=== PATIENT | female | born 1960 | race Caucasian/White ===

== ENCOUNTER 2019-12-16 23:50 | Emergency (ER) | payer MEDICARE ==
[~2019-12-16] VITALS: Ht 170.2 cm; Wt 108.0 kg
[~2019-12-16 23:50] MED LIST: ALBU18HF IH; ALLO300T PO; ALPR2TAB2 PO; AMLO-169 PO; AMLO5TAB4 PO; ATOR20TA PO; AZIT250T PO; BUPR300T4 PO; BUPR300T92 PO; CARV25TA PO; CARV6.252 PO; CHOL100015 PO; CIPR500T86 PO; CLON0.2T PO; CLOP75TA PO; DASA100T PO; DEXL60CA2 PO; DULO60CA7 PO; FENO134C PO; FENO160T PO; FURO-80 PO; FURO-81 PO; GABA300C PO; HYDR500C3 PO; LANC-426 MC; LEVO1CAP2 PO; LEVO200T5 PO; LEVO750T5 PO; LINA290C PO; LORC10TA PO; LOSA50TA14 PO; LOSA50TA2 PO; METF500T17 PO; METO-238 PO; NEBI20TA2 PO; NITR100C58 PO; ONDA8TAB12 PO; OXCA150T19 PO; PANT40TA3 PO; PARO40TA3 PO; POTA10TA17 PO; PRED20TA PO; PROM25TA10 PO; QUET150T2 PO; RANO500T2 PO; ROSU10TA2 PO; TIOT18CA IH; TIZA4TAB2 PO; TRAM50TA PO; [UNRECOGNIZED DRUG - CODE] PO; [UNRECOGNIZED DRUG - CODE] PO; [UNRECOGNIZED DRUG - CODE] PO
[2019-12-17] MEDS ORDERED: MORPHINE SULFATE IM STA (01:18)
--- NOTE | 2019-12-17 01:24 | ER.PDOC ---
General Chief Complaint: Requesting Medical Care Stated Complaint: R KIDNEY PAIN Time seen by MD: 01:22 Source: patient Exam Limitations: no limitations History of Present Illness Initial Comments Right flank pain for 1 week Timing/Duration: 1 week Severity/Quality: moderate, sharpness Radiation: RLQ Associated Symptoms: denies symptoms Exacerbated by: nothing Relieved By: nothing Allergies: Coded Allergies: Penicillins (Verified Allergy, Severe, unknown, 03/24/16) "CONVULSIONS" aspirin (Verified Allergy, Severe, 03/24/16) "CONVULSIONS" cefamandole nafate (Verified Allergy, Severe, 03/24/16) iodine (Verified Allergy, Severe, Shortness of Breath, 03/24/16) quetiapine (Verified Allergy, Severe, "I GO CRAZY, OUT OF MY HEAD", 03/24/16) Cephalexin Monohydrate (Verified Allergy, Intermediate, Hives, 03/24/16) egg (Verified Allergy, Intermediate, Headache, 03/24/16) latex (Verified Allergy, Intermediate, HIVES, 03/24/16) hydrocodone bitartrate (Verified Allergy, Unknown, 03/24/16) phenazopyridine HCl (Verified Allergy, Unknown, 03/24/16) codeine (Verified Adverse Reaction, Mild, 03/24/16) "I GO CRAZY" fentanyl (Verified Adverse Reaction, Mild, 03/24/16) "I GO CRAZY" Uncoded Allergies: SULFA (Allergy, Unknown, 07/26/13) Home Meds Active Scripts Levofloxacin (LEVAQUIN) 750 Mg Tablet, 750 MG PO DAILY, #7 TAB 0 Refills Prov:FERNANDEZ GIRON MD 07/06/19 Oxcarbazepine (OXCARBAZEPINE) 150 Mg Tablet, 300 MG PO DAILY for 30 Days, TAB Prov:ADAIR ROTH MD 03/10/19 Losartan Potassium (COZAAR) 50 Mg Tablet, 100 MG PO DAILY for 30 Days, #30 TAB Prov:ADAIR ROTH MD 03/10/19 Prednisone (PREDNISONE) 20 Mg Tablet, 40 MG PO DAILY24 for 30 Days Prov:ADAIR ROTH MD 02/02/19 Pantoprazole Sodium (PROTONIX) 40 Mg Tablet.dr, 40 MG PO DAILY for 30 Days, #30 Prov:ADAIR ROTH MD 02/02/19 Lancets (ACCU-CHEK) 1 Each Each, 1 EACH MC Q6 for 30 Days, #30 EACH Prov:ADAIR ROTH MD 09/09/18 Amlodipine Besylate (NORVASC) 5 Mg Tablet, 5 MG PO DAILY for 30 Days, TABLET Prov:ADAIR ROTH MD 09/09/18 Reported Medications Carvedilol 25MG (COREG 25MG) 25 Mg Tablet, 1 TAB PO BID, #60 TAB 5 Refills 01/31/19 Clonidine Hcl (CLONIDINE HCL) 0.2 Mg Tablet, 1 TAB PO HS, #30 TAB 2 Refills 01/30/19 Tramadol Hcl (TRAMADOL HCL) 50 Mg Tablet, 50 MG PO PRN PRN for PAIN, TABLET 01/30/19 Metformin Hcl (METFORMIN HCL) 500 Mg Tablet, 1 TAB PO BID, #60 TAB 3 Refills 01/30/19 Rosuvastatin 10MG (CRESTOR 10MG) 10 Mg Tablet, 1 TAB PO DAILY, #30 TAB 5 Refills 01/30/19 Duloxetine Hcl (CYMBALTA) 60 Mg Capsule.dr, 60 MG PO DAILY24 09/07/18 Fenofibrate (FENOFIBRATE) 160 Mg Tablet, 160 MG PO DAILY24, TABLET 09/07/18 Ondansetron (ZOFRAN ODT) 8 Mg Tab.rapdis, 8 MG PO DAILY24 for N/V, TAB 10/04/17 Dasatinib (SPRYCEL) 100 Mg Tablet, 90 MG PO DAILY24, TABLET 10/04/17 Potassium Citrate (POTASSIUM CITRATE) 10 Meq Tablet.er, 10 MEQ PO DAILY24 10/04/17 Bupropion Hcl (BUPROPION XL) 300 Mg Tab.er.24h, 300 MG PO DAILY24 10/04/17 Ondansetron (ZOFRAN ODT) 8 Mg Tab.rapdis, 8 MG PO DAILY24 for N/V, TAB 10/04/17 Dasatinib (SPRYCEL) 80 Mg Tablet, 90 MG PO DAILY24, TABLET 10/04/17 Albuterol Sulfate (VENTOLIN HFA) 18 Gm Hfa.aer.ad, 90 MCG IH Q6HR PRN for SHORTNESS OF BREATH 10/04/17 Allopurinol (ALLOPURINOL) 300 Mg Tablet, 1 TAB PO DAILY 10/04/17 Duloxetine Hcl (CYMBALTA) 60 Mg Capsule.dr, 60 MG PO DAILY 03/24/16 Tiotropium Gilbert (SPIRIVA) 18 Mcg Cap.w.dev, 1 CAP IH DAILY 12/13/15 Furosemide (LASIX) 20 Mg Tablet, 1 TAB PO DAILY 11/22/14 Tizanidine Hcl (TIZANIDINE HCL) 4 Mg Tablet, 1 TAB PO TID PRN for MUSCLE SPASM 11/22/14 Gabapentin (NEURONTIN) 300 Mg Capsule, 2 CAP PO TID 01/19/14 Alprazolam (XANAX) 2 Mg Tablet, 2 MG PO TID, TABLET 01/15/14 Linaclotide (LINZESS) 290 Mcg Capsule, 290 MCG PO DAILY, CAPSULE 01/15/14 Cholecalciferol (Vitamin D3) (VITAMIN D) 10,000 Unit Capsule, 72814 UNIT PO 3 TIMES A WEEK, CAPSULE 01/15/14 Levothyroxine Sodium (LEVOTHYROXINE SODIUM) 200 Mcg Tablet, 150 MCG PO DAILY, TABLET 08/11/13 Vital Signs First Vital Signs Date Time Temp Pulse Resp B/P (MAP) Pulse Ox O2 Delivery O2 Flow Rate FiO2 12/17/19 01:28 98.2 94 18 115/62 (79) 95 Last Vital Signs Date Time Temp Pulse Resp B/P (MAP) Pulse Ox O2 Delivery O2 Flow Rate FiO2 12/17/19 01:28 98.2 94 18 12/17/19 01:28 95 12/17/19 01:28 115/62 (79) Past Medical History Medical History: cancer, coronary artery disease, cardiac problems, congestive heart failure, COPD, diabetes, fibromyalgia, high cholesterol, hypertension, renal disease, other Surgical History: appendectomy, cholecystectomy, hysterectomy, tonsillectomy, other Social History Drug Use: none Constitutional: no symptoms reported EENTM: no symptoms reported Respiratory: no symptoms reported Cardiovascular: no symptoms reported Gastrointestinal: see HPI Genitourinary: see HPI Musculoskeletal: no symptoms reported All Other Systems: Reviewed and Negative Physical Exam General Appearance: Obese Neck: Non-Tender, Full Range of Motion, Supple, Normal Inspection Respiratory: chest non-tender, lungs clear, normal breath sounds, no respiratory distress, no accessory muscle use Cardiovascular: Normal Peripheral Pulses, Regular Rate, Rhythm, No Edema, No Gallop, No JVD, No Murmur Gastrointestinal: Normal Bowel Sounds, No Organomegaly, No Pulsatile Mass, Guarding, Tenderness (RLQ) Back: CVA Tenderness (R) Extremities: Normal Range of Motion, Non-Tender, Normal Inspection, No Pedal Edema, No Calf Tenderness, Normal Capillary Refill, Pelvis Stable 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, No Motor/Sensory Deficits, Alert, Normal Mood/Affect, Oriented x 3 Skin: Normal Color, Warm/Dry Lymphatic: No Adenopathy Results/Orders Results/Orders Orders - TEAGAN DOHERTY MD Cbc With Auto Diff (12/17/19 01:18) Comprehensive Metabolic Panel (12/17/19 01:18) Urinalysis (12/17/19 01:18) Ct Abd/Pelvis Wo Iv Contrast (12/17/19 01:18) Morphine Sulfate (Morphine Sulfate) (12/17/19 01:18) Morphine Sulfate (Morphine Sulfate) (12/17/19 01:47) Urine Culture (12/17/19 01:35) Vital Signs Date Time Temp Pulse Resp B/P (MAP) Pulse Ox O2 Delivery O2 Flow Rate FiO2 12/17/19 01:28 98.2 94 18 12/17/19 01:28 98.2 94 18 95 12/17/19 01:28 98.2 94 18 115/62 (79) 95 Administered Medications Medications (Trade) Dose Ordered Sig/Dyllan Route PRN Reason Start Time Stop Time Status Last Admin Dose Admin Morphine Sulfate (Morphine Sulfate) 4 mg STAT STAT IM 12/17/19 01:18 12/17/19 01:22 DC 12/17/19 01:55 4 MG Laboratory Tests Test 12/17/19 01:35 12/17/19 01:36 Urine Collection Type VOID Urine Color YELLOW (YELLOW) Urine Appearance CLEAR (CLEAR) Urine Bilirubin NEGATIVE MG/DL (NEGATIVE) Urine Ketones NEGATIVE (NEGATIVE) Urine Specific [place] 1.020 (1.005-1.035) Urine pH 6.5 (5.0-6.0) Urine Protein NEGATIVE (NEGATIVE) Urine Urobilinogen NORMAL (NEGATIVE) Urine Nitrate NEGATIVE (NEGATIVE) Urine Leukocyte Esterase 25 /uL TRACE (NEGATIVE) Urine Blood NEGATIVE (NEGATIVE) Urine RBC 0-2 RBC/HPF (NONE SEEN) Urine WBC 5-10 WBC/HPF (0-2) H Urine Squamous Epithelial Cells FEW #/HPF (FEW) Urine Bacteria FEW (NONE SEEN) H Urine Yeast FEW Urine Glucose NEGATIVE (NEGATIVE) White Blood Count 11.5 10^3/uL (4.5-11.0) H Red Blood Count 3.85 10^6/uL (4.00-5.20) L Hemoglobin 11.7 g/dL (12.0-15.0) L Hematocrit 36.6 % (36.0-46.0) Mean Corpuscular Volume 95.1 fL (78-100) Mean Corpuscular Hemoglobin 30.4 pg (26-34) Mean Corpuscular Hemoglobin Concent 32.0 g/dL (33-36.5) L Red Cell Distribution Width 13.4 % (11.5-14.5) Platelet Count 265 10^3/uL (150-400) Mean Platelet Volume 9.4 fL (7.8-11.0) Neutrophils (%) (Auto) 70.0 % (41.0-85.0) Lymphocytes (%) (Auto) 20.4 % (24.0-44.0) L Monocytes (%) (Auto) 6.8 % (5.0-12.0) Neutrophils # (Auto) 8.0 10^3/uL (1.8-7.7) H Lymphocytes # (Auto) 2.35 10^3/uL1 (1.0-4.8) Monocytes # (Auto) 0.8 10^3/uL (0.3-0.8) Absolute Immature Granulocyte (auto 0.05 10^3 u/L (0-2) Absolute Eosinophils (auto) 0.2 10^3/uL (0.0-0.2) Immature Granulocytes % 0.40 % (0.00-0.50) Eosinophils % 2.0 % (0.0-5.0) Basophils % 0.4 % (0.0-0.2) H Basophils # 0.1 10^3/uL (0.0-0.1) Sodium Level 143 mmol/L (132-145) Potassium Level 4.4 mmol/L (3.6-5.2) Chloride Level 102.0 mmol/L (96-109) Carbon Dioxide Level 30.7 mmol/L (20.0-32) Anion Gap 14.7 Blood Urea Nitrogen 12 mg/dL (7-18) Creatinine 1.33 mg/dL (0.59-1.40) Estimated GFR () 49.6 (>/=60) Est GFR (CKD-EPI)(Non-Afr [place] Citizen) 41.0 (>/=60) BUN/Creatinine Ratio 9.0 Glucose Level 154 mg/dL (70-110) H Calcium Level 9.3 mg/dL (8.4-10.5) Total Bilirubin 0.2 mg/dL (0.2-1.0) Aspartate Amino Transferase (AST) 21 U/L (0-35) Alanine Aminotransferase (ALT) 27 U/L (12-78) Alkaline Phosphatase 55 U/L (50-136) Total Protein 7.6 g/dL (6.4-8.2) Albumin 4.1 g/dL (3.4-5.0) Globulin 3.5 Albumin/Globulin Ratio 1.[address] abdomen/pelvis: 1. Bilateral nonobstructing nephrolithiasis. No distal urolith or hydronephrosis noted. 2. Stable bilateral renal parenchymal scarring consistent with sequela of pyelonephritis. 3. Mild colonic diverticulosis. 4. Small left pleural effusion. ER DEPART Departure Time of Disposition: 02:13 Disposition: 01 HOME, SELF-CARE Impression: Primary Impression: UTI (lower urinary tract infection) Additional Impression: Right flank pain Condition: Stable Referrals: ORQUIDEA LANCASTER NP (PCP) PRIMARY CARE PROVIDER Additional Instructions: Macrobid F/U with your PCP in 1 week Return to ED if worsening symptoms or concerns Duration or Time Spent with Pa: 45 min Problem Qualifiers TEAGAN DOHERTY MD Dec 17, 2019 01:24
[2019-12-17 01:28] VITALS: BP 115/62
[2019-12-17 01:42] LABS: BASOPHIL # 0.1 10^3/uL (0.0-0.1); BASOPHIL % 0.4 % (0.0-0.2); EOSINOPHIL # 0.2 10^3/uL (0.0-0.2); LYMPHOCYTES # 2.35 10^3/uL1 (1.0-4.8); LYMPHOCYTES % 20.4 % (24.0-44.0); MEAN CORP HGB 30.4 pg (26-34); MONOCYTES # 0.8 10^3/uL (0.3-0.8); MONOCYTES % 6.8 % (5.0-12.0); PLATELET COUNT 265 10^3/uL (150-400); RED CELL DISTRIBUTION WIDTH 13.4 % (11.5-14.5)
[2019-12-17] MEDS ORDERED: MORPHINE SULFATE ONE (01:47)
[2019-12-17 01:57] LABS: APPEARANCE,URINE CLEAR (CLEAR); BILIRUBIN,URINE NEGATIVE (NEGATIVE); UA COLOR YELLOW (YELLOW)
[2019-12-17 01:58] LABS: UROBILINOGEN,URINE NORMAL (NEGATIVE); YEAST,URINE FEW
[2019-12-17 01:59] LABS: CALCIUM 9.3 mg/dL (8.4-10.5); CARBON DIOXIDE 30.7 mmol/L (20.0-32)
--- NOTE | 2019-12-17 02:00 | DIREP ---
PROCEDURE:CT ABDOMEN/PELVIS W/O CONTRAST COMPARISON:[facility], CT, CT ABD/PELVIS W/O, 06/03/2017, 11:07 AM. [facility], CT, CT ABD/PELVIS W/O, 11/06/2016, 01:05 PM. [facility], CT, CT ABD/PELVIS W/O, 10/03/2016, 06:09 PM. INDICATIONS:Right flank pain TECHNIQUE:Axial images were created through the abdomen and pelvis without intravenous contrast material. No oral contrast was administered. Sagittal and coronal reconstructions were performed from source images. FINDINGS: LUNG BASES:Small left pleural effusion. The lung bases are otherwise clear. LIVER:Normal. No significant liver lesions are identified. BILIARY:Normal. No visible dilatation or calcification. PANCREAS:Normal. No lesion, fluid collection, ductal dilatation, or atrophy. SPLEEN:Normal. No enlargement or focal lesion. ADRENALS:Normal. No mass or enlargement. URINARY TRACT:Bilateral nonobstructing nephrolithiasis, measuring up to 3 mm in size. No distal urolith or hydronephrosis noted. Stable bilateral renal parenchymal scarring. AORTA/VASCULAR:There are aortic atherosclerotic calcifications present. No aneurysm. RETROPERITONEUM:Normal. No mass or adenopathy. BOWEL/MESENTERY:There is mild colonic diverticulosis without evidence for diverticulitis. There is no intestinal obstruction, free fluid, free air or mesenteric inflammatory changes. ABDOMINAL WALL:Normal. No mass or hernia. PELVIC ORGANS:The uterus is surgically absent. No visible mass. BONES:Degenerative changes. No acute abnormality noted. OTHER:Negative. CONCLUSION:1. Bilateral nonobstructing nephrolithiasis. No distal urolith or hydronephrosis noted. 2. Stable bilateral renal parenchymal scarring consistent with sequela of pyelonephritis. 3. Mild colonic diverticulosis. 4. Small left pleural effusion. Dictated by: August Nolan M.D. on 12/17/2019 at 01:55 AM
[2019-12-17] MEDS ORDERED: ROCEPHIN IM STA (02:13)
[2019-12-17] MEDS ORDERED: ROCEPHIN ONE (02:18)
== END 2019-12-17 02:34 | disposition home or self-care (01) ==
LOC: ER 23:50
DX: N39.0 Urinary tract infection, site not specified (principal); I11.0 Hypertensive heart disease with heart failure; E78.00 Pure hypercholesterolemia, unspecified; E11.9 Type 2 diabetes mellitus without complications; I25.10 Atherosclerotic heart disease of native coronary artery without angina pectoris; I50.9 Heart failure, unspecified; J44.9 Chronic obstructive pulmonary disease, unspecified; Z79.84 Long term (current) use of oral hypoglycemic drugs; M79.7 Fibromyalgia; Z79.899 Other long term (current) drug therapy; Z88.0 Allergy status to penicillin; Z88.2 Allergy status to sulfonamides; Z88.5 Allergy status to narcotic agent; Z88.6 Allergy status to analgesic agent; Z88.8 Allergy status to other drugs, medicaments and biological substances; Z90.710 Acquired absence of both cervix and uterus; Z90.49 Acquired absence of other specified parts of digestive tract
CPT/HCPCS: 36415; 74176; 80053; 81000; 85025; 87086; 96372 ×2; 99284; J0696; J2270

== ENCOUNTER → 2020-02-14 | Outpatient (CLI) | payer MEDICARE | END | disposition home or self-care (01) | LOC: NPLAB 14:56 | PROVIDERS: ATTEND Nurse Practitioner Adult Health | DX: Z20.828 Contact with and (suspected) exposure to other viral communicable diseases (principal) | CPT/HCPCS: 87426; 87635 ==

== ENCOUNTER → 2020-02-14 | Outpatient (CLI) | payer MEDICARE ==
[2020-02-14 15:16] LABS: BASOPHIL % 0.5 % (0.0-0.2); EOSINOPHIL # 0.2 10^3/uL (0.0-0.2); EOSINOPHIL % 3.2 % (0.0-5.0); LYMPHOCYTES # 1.57 10^3/uL1 (1.0-4.8); MEAN CORP HGB 30.4 pg (26-34); MONOCYTES # 0.6 10^3/uL (0.3-0.8); MONOCYTES % 8.8 % (5.0-12.0); NEUTROPHIL # 3.9 10^3/uL (1.8-7.7); NEUTROPHILS % 62.3 % (41.0-85.0); PLATELET COUNT 211 10^3/uL (150-400); RED CELL DISTRIBUTION WIDTH 13.6 % (11.5-14.5)
[2020-02-14 15:50] LABS: ALANINE AMINOTRANSFERASE(ML) 23 U/L (12-78); ALKALINE PHOSPHATASE 47 U/L (50-136); ASPARTATE AMINO TRANSFERASE 12 U/L (0-35); CALCIUM 9.8 mg/dL (8.4-10.5); CARBON DIOXIDE 36.4 mmol/L (20.0-32); GLUCOSE 208 mg/dL (70-110)
== END | disposition home or self-care (01) ==
LOC: LAB 14:50
PROVIDERS: ATTEND Specialist
DX: R05 Cough (principal); R50.9 Fever, unspecified; Z79.899 Other long term (current) drug therapy; I10 Essential (primary) hypertension; E11.9 Type 2 diabetes mellitus without complications
CPT/HCPCS: 36415; 80053; 82728; 83615; 84145; 84484; 85025; 85379; 86140

== ENCOUNTER → 2020-02-16 | Outpatient (CLI) | payer MEDICARE ==
--- NOTE | 2020-02-16 16:31 | DIREP ---
PROCEDURE:CT CHEST WITHOUT CONTRAST TECHNIQUE:Axial cuts were obtained through the chest, without intravenous contrast material. The images were viewed at lung and soft tissue settings. Sagittal and coronal reconstructions are provided. COMPARISON:[facility], CT, CT-CHEST W/O ABD W/O PEL W/O CONTRAST, 03/25/2012, 06:43 PM. [facility], CT, CT ABD/PELVIS W/O, 12/17/2019, 01:35 AM. [facility], CR, XRAY CHEST 2 VWS, 01/04/2020, 06:39 AM. INDICATIONS:R05 COUGH, R50.9 FEVER FINDINGS: LUNGS:Very faint diffuse ground-glass appearance of the right upper lobe. Right middle lobe nodule 0.6 cm. Stable small left pleural effusion. CARDIAC:Normal size heart, mild coronary artery calcifications and normal pulmonary vascularity. THORACIC AORTA:Calcification without dilatation. MEDIASTINUM/ANKUR:No pathologic adenopathy. CHEST WALL:Normal. LIMITED ABDOMEN:Cholecystectomy. BONES:Lower thoracic spondylosis. THYROID:Normal. OTHER:No additional findings. CONCLUSION: 1. Mild diffuse right upper lobe ground-glass infiltrates. 2. 0.5 cm right middle lobe nodule. 3. Small left pleural effusion. Dictated by: Theresa Vigil MD on 02/16/2020 at 04:18 PM
== END | disposition home or self-care (01) ==
LOC: RAD 13:27
PROVIDERS: ATTEND Specialist
DX: R91.1 Solitary pulmonary nodule (principal); J90 Pleural effusion, not elsewhere classified; R05 Cough; R50.9 Fever, unspecified; R91.8 Other nonspecific abnormal finding of lung field
CPT/HCPCS: 71250

== ENCOUNTER 2020-03-06 14:55 | Inpatient (IN) | payer MEDICARE ==
[~2020-03-06] VITALS: Ht 170.2 cm; Wt 114.0 kg
[2020-03-06 15:30] VITALS: BP 159/79
[2020-03-06] MEDS ORDERED: NS 1000ML 1,000 ML IV ONE ×2 (15:30)
[2020-03-06] MEDS ORDERED: ZOFRAN IV PRN (15:30)
--- NOTE | 2020-03-06 15:40 | PCM.EKG ---
[facility] Test Date: 2020-03-06 Test Time: 15:37:48 Pat Name: MICHAEL HERRERA Department: Room: 331 A Gender: F Assistant Media Buyer: FRAN : 1960 Requested By: FERNANDEZ ROBLES Order Number: [id number] Reading MD: Fernandez Robles Measurements Intervals [place] Rate: 86 P: 67 NM: 170 QRS: 27 QRSD: 118 T: 51 QT: 405 QTc: 485 Interpretive Statements Sinus rhythm Consider left atrial enlargement Incomplete right bundle branch block Compared to ECG 01/02/2020 13:36:07 Incomplete right bundle-branch block now present Electronically Signed On 03-07-2020 12:01:48 ASSOCIATE FIELD SERVICE ENGINEER by Fernandez Robles Please click the below link to view image of tracing.
[2020-03-06 15:53] LABS: BASOPHIL % 0.3 % (0.0-0.2); EOSINOPHIL # 0.2 10^3/uL (0.0-0.2); EOSINOPHIL % 1.5 % (0.0-5.0); LYMPHOCYTES # 1.68 10^3/uL1 (1.0-4.8); LYMPHOCYTES % 15.2 % (24.0-44.0); MEAN CORP HGB 30.2 pg (26-34); MONOCYTES # 0.7 10^3/uL (0.3-0.8); MONOCYTES % 5.9 % (5.0-12.0); NEUTROPHIL # 8.5 10^3/uL (1.8-7.7); NEUTROPHILS % 76.8 % (41.0-85.0); PLATELET COUNT 207 10^3/uL (150-400); RED CELL DISTRIBUTION WIDTH 13.7 % (11.5-14.5)
[2020-03-06 16:21] LABS: CALCIUM 9.9 mg/dL (8.4-10.5); CARBON DIOXIDE 34.3 mmol/L (20.0-32)
--- NOTE | 2020-03-06 17:31 | PCM.HP ---
HISTORY & PHYSICAL HISTORY & PHYSICAL DATE: March 06, 2020 Patient is being admitted as an inpatient to [facility] ADMITTING DIAGNOSES: Left lower quadrant pain with nausea vomiting dehydration with hematochezia CHIEF COMPLAINT: Belly pain vomiting and blood in the stools HISTORY OF PRESENT ILLNESS: 59-year-old female with history of CML who just finished antibiotics for a recent pneumonia. She started to have increasing left lower quadrant pain with nausea and nonbilious vomiting along with blood in her stool. This has been going on for the past week. She does report fever and chills with some night sweats. She denies any urinary symptoms and she denies any chest pain or shortness of breath. She denies any recent trauma or recent travel. There have been no sick contacts around her. She was on Levaquin for her pneumonia recently. PAST MEDICAL HISTORY: CML, COPD, recurrent pneumonias, hypothyroid PAST SURGICAL HISTORY: Cholecystectomy, multiple hernia repairs with the last one having a mesh placement, total hysterectomy, x2, exploratory laparotomy x2, breast biopsies which were all negative, colonoscopy ALLERGIES: Penicillin, aspirin, codeine, iodine, fentanyl, Seroquel, Keflex MEDICATIONS: I have reviewed her home medication list in [employer] SOCIAL HISTORY: No tobacco, no drugs, no alcohol OB history: She is a FAMILY HISTORY: Mom is with a diagnosis of pulmonary fibrosis, maternal grandmother with history of pancreatic cancer PHYSICAL EXAMINATION: VITAL SIGNS: Pulse 91, respirations 18, O2 sat of 99%, she is afebrile HEENT: Oropharynx is dry but patent, nares are patent, no maxillary sinus tenderness, no nasal congestion noted, TMs are patent NECK: No JVD noted, no bruits, no lymphadenopathy HEART: S1 and S2 audible, she was not tachycardic, no gallop rhythms LUNGS: CTA bilaterally ABDOMEN: Bowel sounds are present, soft abdomen, she was tender to the left lower quadrant but no significant rebound noted EXTREMITIES: Minimal edema to her legs, no purpura, no petechia, no cyanosis LABORATORY DATA: WBC 11.0, hemoglobin 11.7, platelet count 207, sed rate 13, PT 11.6, INR 1.1, sodium 140, potassium 3.2, chloride 95, BUN 17, creatinine 1.5, estimated GFR 36, glucose 182, LFTs are normal, albumin 4.2, procalcitonin less than 0.05 EKG: No tachycardia no significant ST segment changes noted ASSESSMENT: We have this 59-year-old female with onset of left lower quadrant pain with hematochezia and nausea vomiting and dehydration PLAN: I will go ahead and admit her to the hospital and start her on IV fluids for her the dehydration and some pain control. I will schedule a CAT scan with contrast to evaluate for diverticulitis/colitis and draw some C. difficile toxin panel on her as well with her recent use of antibiotics. Total time spent on pt = 60 mins FERNANDEZ GIRON MD Mar 06, 2020 17:31
[2020-03-06] MEDS: MORPHINE SULFATE IV PRN ×2 (19:07→23:06)
[2020-03-06 20:05] LABS: APPEARANCE,URINE CLOUDY (CLEAR); BILIRUBIN,URINE SMALL MG/DL (NEGATIVE); UA COLOR RED (YELLOW)
[2020-03-06 20:06] LABS: UROBILINOGEN,URINE NORMAL (NEGATIVE)
[2020-03-06 20:26] VITALS: BP 154/86
--- NOTE | 2020-03-06 22:55 | DIREP ---
PROCEDURE:CHEST X-RAY, PA & LATERAL COMPARISON:[facility], CR, XRAY CHEST 2 VWS, 01/04/2020, 06:39 AM. [facility], CR, XRAY CHEST 2 VWS, 07/03/2019, 04:59 PM. INDICATIONS:cough FINDINGS: LUNGS/PLEURA:No significant pulmonary parenchymal abnormalities. No effusions. VASCULATURE:The pulmonary vasculature is normal. CARDIAC:The heart is borderline enlarged. MEDIASTINUM:Normal. No visible mass or adenopathy. BONES:Normal. No fracture or visible bony lesion. OTHER:Negative. CONCLUSION: 1. Borderline cardiomegaly, without evidence of cardiac decompensation at this time. 2. No acute pulmonary abnormality is identified. Dictated by: Jaguar Amezcua MD on 03/06/2020 at 10:53 PM
[2020-03-07] VITALS (13 sets, daily range): BP systolic 140–186; BP diastolic 63–94
[2020-03-07] MEDS: MORPHINE SULFATE IV PRN ×2 (06:25→20:12)
--- NOTE | 2020-03-07 07:11 | DIREP ---
PROCEDURE:CT ABD/PELVIS W/O TECHNIQUE:The patient drank oral contrast material. Axial cuts were obtained through the abdomen and pelvis without IV contrast. The images were viewed at lung and soft tissue settings. Sagittal and coronal reconstructions are provided. COMPARISON:[facility], CT, CT ABD/PELVIS W/O, 12/17/2019, 01:35 AM. INDICATIONS:LLQ pain FINDINGS: LOWER CHEST:The lung bases are clear. Previously seen small left pleural effusion has nearly completely resolved. There is residual pleural thickening. LIVER:Normal. BILIARY:Previous cholecystectomy. PANCREAS:Normal. SPLEEN:Normal. URINARY TRACT:There is a 3 mm stone in the proximal left ureter at the level of L3 series 46638, image 41 and series 2, image 46 causing mild left-sided hydroureter and hydronephrosis. Bilateral cortical scarring with cortical calcifications. Small nonobstructing 2 mm stone in the left renal collecting system series 2, image 43 unchanged. No stones in the right renal collecting system. ADRENALS:Normal. AORTA/VASCULAR:Extensive arterial calcifications. RETROPERITONEUM:Normal. BOWEL/MESENTERY:Scattered diverticula in the descending and sigmoid colon with no evidence of diverticulitis. Appendix not clearly identified. ABDOMINAL WALL:Normal. PELVIS:Previous hysterectomy. BONES:Disc narrowing vacuum changes L5-S1. OTHER:Normal. CONCLUSION: 1. 3 mm stone proximal left ureter at the level of L3 causing left-sided hydroureter and hydronephrosis. 2. Bilateral renal cortical calcifications and scarring. There is a nonobstructing 2 mm stone in the left renal collecting system. 3. Previously seen small left pleural effusion has nearly completely resolved. 4. Previous cholecystectomy and hysterectomy. 5. Atherosclerosis. Dictated by: Obi Cerrato M.D. on 03/07/2020 at 07:01 AM
--- NOTE | 2020-03-07 09:28 | PRM.PN ---
Subjective Subjective Date: Mar 07, 2020 Time: 09:15 Subjective Pt still with LLQ pains but no more vomiting; no bloody stool overnight Patient History: Asthma 32 MOTHER, , Age:61 G8 BROTHER, Age:50 19 CHILD, Age:32 19 CHILD, Age:29 Asthma 32 MOTHER, , Age:61 G8 BROTHER, Age:50 19 CHILD, Age:32 19 CHILD, Age:29 Bone cancer G8 SISTER, Cerebrovascular disorder G8 BROTHER, Age:57 Chronic obstructive pulmonary disease G8 BROTHER, Age:56 G8 SISTER, FH: lung cancer G8 SISTER, FHx: brain cancer G8 SISTER, Hypertension 33 FATHER, , Age:72 G8 BROTHER, Age:57 G8 BROTHER, Age:56 G8 BROTHER, Age:55 G8 BROTHER, Age:50 G8 SISTER, Age:54 19 CHILD, Age:29 G8 SISTER, Hypertension 33 FATHER, , Age:72 G8 BROTHER, Age:57 G8 BROTHER, Age:56 G8 BROTHER, Age:55 G8 BROTHER, Age:50 G8 SISTER, Age:54 19 CHILD, Age:29 G8 SISTER, No Family History of: Alzheimer's disease Cerebrovascular disorder Chronic obstructive pulmonary disease Congestive heart failure Diabetes insipidus Diabetes mellitus Parkinson's disease VTE VTE Risk Total Score: 5 VTE Risk Score VTE Risk: Score 0-1 = Low Risk (Aggressive mobilization; early ambulation; no VTE prophylaxis required) Score 2: Moderate Risk (Intermittent/Pneumatic Compression Device OR Lovenox/Heparin/Coumadin) Score 3-4: High Risk (Intermittent/Pneumatic Compression Device AND Lovenox/Heparin/Coumadin) Score > or =5: Highest Risk (Intermittent/Pneumatic Compression Device AND Lovenox/Heparin/Coumadin) Antico:Hep/LMWH/Coum/Xarelto: No Mechanical device ordered: Yes Reasons not ordering prophylax: Bleeding, Renal impairment Review of Systems Constitutional: Malaise; No: Fever, Chills, Sweats, Weakness Eyes: No: Pain, Vision change, Conjunctivae inflammation ENT: No: Ear pain, Ear discharge, Nose pain, Nose discharge, Nose congestion Respiratory: No: Cough, Dry, Shortness of breath, SOB with excertion, Wheezing Cardiovascular: No: Chest Pain, Palpitations, Orthopnea Gastrointestinal: Nausea, Abdominal Pain (LLQ), Hematochezia; No: Vomiting, Diarrhea, Constipation, Melena Genitourinary: No Dysuria, No Frequency, No Incontinence Musculoskeletal: No: neck pain, shoulder pain, arm pain Skin: No: Lesions, Jaundice Neurological: No: Change in speech, Confusion, Seizures Allergies: Coded Allergies: Penicillins (Verified Allergy, Severe, unknown, 03/24/16) "CONVULSIONS" aspirin (Verified Allergy, Severe, 03/24/16) "CONVULSIONS" cefamandole nafate (Verified Allergy, Severe, 03/24/16) iodine (Verified Allergy, Severe, Shortness of Breath, 03/24/16) quetiapine (Verified Allergy, Severe, "I GO CRAZY, OUT OF MY HEAD", ) Cephalexin Monohydrate (Verified Allergy, Intermediate, Hives, 03/24/16) egg (Verified Allergy, Intermediate, Headache, 03/24/16) latex (Verified Allergy, Intermediate, HIVES, 03/24/16) hydrocodone bitartrate (Verified Allergy, Unknown, 03/24/16) phenazopyridine HCl (Verified Allergy, Unknown, 03/24/16) codeine (Verified Adverse Reaction, Mild, 03/24/16) "I GO CRAZY" fentanyl (Verified Adverse Reaction, Mild, 03/24/16) "I GO CRAZY" Uncoded Allergies: SULFA (Allergy, Unknown, 07/26/13) Scheduled Allopurinol (Allopurinol), 1 TAB PO DAILY, (Reported) Alprazolam (Xanax), 2 MG PO TID, (Reported) Amlodipine Besylate (Norvasc), 5 MG PO DAILY Bupropion Hcl (Bupropion Xl), 300 MG PO DAILY24, (Reported) Carvedilol 25MG (Coreg 25MG), 1 TAB PO BID, (Reported) Cholecalciferol (Vitamin D3) (Vitamin D), 50,000 UNIT PO 3 TIMES A WEEK, (Reported) Clonidine Hcl (Clonidine Hcl), 1 TAB PO HS, (Reported) Dasatinib (Sprycel), 90 MG PO DAILY24, (Reported) Dasatinib (Sprycel), 90 MG PO DAILY24, (Reported) Duloxetine Hcl (Cymbalta), 60 MG PO DAILY, (Reported) Duloxetine Hcl (Cymbalta), 60 MG PO DAILY24, (Reported) Fenofibrate (Fenofibrate), 160 MG PO DAILY24, (Reported) Furosemide (Lasix), 1 TAB PO DAILY, (Reported) Gabapentin (Neurontin), 2 CAP PO TID, (Reported) Levofloxacin (Levaquin), 750 MG PO DAILY Levothyroxine Sodium (Levothyroxine Sodium), 150 MCG PO DAILY, (Reported) Linaclotide (Linzess), 290 MCG PO DAILY, (Reported) Losartan Potassium (Cozaar), 100 MG PO DAILY Metformin Hcl (Metformin Hcl), 1 TAB PO BID, (Reported) Ondansetron (Zofran Odt), 8 MG PO DAILY24, (Reported) Ondansetron (Zofran Odt), 8 MG PO DAILY24, (Reported) Oxcarbazepine (Oxcarbazepine), 300 MG PO DAILY Pantoprazole Sodium (Protonix), 40 MG PO DAILY Potassium Citrate (Potassium Citrate), 10 MEQ PO DAILY24, (Reported) Prednisone (Prednisone), 40 MG PO DAILY24 Rosuvastatin 10MG (Crestor 10MG), 1 TAB PO DAILY, (Reported) Tiotropium Delevan (Spiriva), 1 CAP IH DAILY, (Reported) Scheduled PRN Albuterol Sulfate (Ventolin Hfa), 90 MCG IH Q6HR PRN for SHORTNESS OF BREATH, (Reported) Tizanidine Hcl (Tizanidine Hcl), 1 TAB PO TID PRN for MUSCLE SPASM, (Reported) Tramadol Hcl (Tramadol Hcl), 50 MG PO PRN PRN for PAIN, (Reported) Durable Medical Equipment Lancets (Accu-Chek), 1 EACH MC Q6, (DME) Objective Vitals and I/O Vital Sign - Last 24 Hours 03/06/20 03/06/20 03/06/20 03/06/20 15:30 15:30 15:56 15:59 Temp 99.1 Pulse 83 83 Resp 18 18 18 B/P (MAP) 159/79 (105) Pulse Ox 99 99 O2 Delivery Nasal Cannula Nasal Canula Nasal Cannula O2 Flow Rate 2.00 2.00 3.00 FiO2 32 03/06/20 03/06/20 03/06/20 03/07/20 20:26 20:30 23:57 00:04 Temp 98.8 98.7 Pulse 88 89 73 Resp 20 18 18 B/P (MAP) 154/86 (108) 154/71 (98) Pulse Ox 97 O2 Delivery Nasal Cannula Nasal Cannula O2 Flow Rate 2.00 2.00 FiO2 28 03/07/20 03/07/20 03/07/20 00:30 04:15 08:45 Temp 98.6 98.5 Pulse 85 75 107 Resp 18 18 19 B/P (MAP) 150/65 (93) 186/90 (122) Pulse Ox 98 98 O2 Delivery Bi-pap O2 Flow Rate 2.50 FiO2 30 Intake and Output 03/07/20 06:59 Output Total 700 ml Balance -700 ml General: Alert, Oriented X3, Cooperative, No acute distress HEENT: Atraumatic, PERRLA, EOMI Neck: Supple, No JVD Lungs: Clear to auscultation, Normal air movement Heart: Regular rate, Normal S1, Normal S2 Abdomen: Normal bowel sounds, Soft, Other (L flank tenderness noted) Extremities: No clubbing, No cyanosis Skin: No rashes Neuro: Normal speech, Sensation intact, Cranial nerves 3-12 NL Psych/Mental Status: Mental status NL, Mood NL All Results(Lab/Rad) Laboratory Tests Test 03/06/20 15:35 03/06/20 15:52 03/06/20 19:41 White Blood Count 11.0 10^3/uL Red Blood Count 3.88 10^6/uL Hemoglobin 11.7 g/dL Hematocrit 35.8 % Mean Corpuscular Volume 92.3 fL Mean Corpuscular Hemoglobin 30.2 pg Mean Corpuscular Hemoglobin Concent 32.7 g/dL Red Cell Distribution Width 13.7 % Platelet Count 207 10^3/uL Mean Platelet Volume 9.3 fL Neutrophils (%) (Auto) 76.8 % Lymphocytes (%) (Auto) 15.2 % Monocytes (%) (Auto) 5.9 % Neutrophils # (Auto) 8.5 10^3/uL Lymphocytes # (Auto) 1.68 10^3/uL1 Monocytes # (Auto) 0.7 10^3/uL Absolute Immature Granulocyte (auto 0.03 10^3 u/L Absolute Eosinophils (auto) 0.2 10^3/uL Immature Granulocytes % 0.30 % Eosinophils % 1.5 % Basophils % 0.3 % Basophils # 0.0 10^3/uL Erythrocyte Sedimentation Rate 13 mm/hr Prothrombin Time 11.6 SEC Prothrombin Time INR (Non-Therap) 1.1 Sodium Level 140 mmol/L Potassium Level 3.2 mmol/L Chloride Level 95.0 mmol/L Carbon Dioxide Level 34.3 mmol/L Anion Gap 13.9 Blood Urea Nitrogen 17 mg/dL Creatinine 1.50 mg/dL Estimated GFR () 43.2 Est GFR (CKD-EPI)(Non-Afr Burkinan) 35.7 BUN/Creatinine Ratio 11.0 Glucose Level 182 mg/dL Calcium Level 9.9 mg/dL Total Bilirubin 0.3 mg/dL Aspartate Amino Transf (AST/SGOT) 15 U/L Alanine Aminotransferase (ALT/SGPT) 23 U/L Alkaline Phosphatase 43 U/L C-Reactive Protein 0.68 mg/dL Total Protein 7.7 g/dL Albumin 4.2 g/dL Globulin 3.5 Albumin/Globulin Ratio 1.200 Procalcitonin < 0.05 ng/mL Bedside Glucose 156 Urine Collection Type UNKNOWN Urine Color RED Urine Appearance CLOUDY Urine Bilirubin SMALL MG/DL Urine Ictotest NEGATIVE Urine Ketones NEGATIVE Urine Specific [place] 1.015 Urine pH 5.5 Urine Protein 100 mg/dL Urine Urobilinogen NORMAL Urine Nitrate NEGATIVE Urine Leukocyte Esterase NEGATIVE Urine Blood LARGE Urine RBC TNTC RBC/HPF Urine WBC 0-2 WBC/HPF Urine Squamous Epithelial Cells FEW #/HPF Urine Bacteria RARE Urine Glucose NORMAL Stool Occult Blood Sample #2 Pending Stool Occult Blood Sample #3 Pending Bedside Stool Occult Blood NEGATIVE Stool Lactoferrin (LAB) NEGATIVE Clostridium difficile Screen NEGATIVE Clostridium Difficile Toxin A & B NEGATIVE Current Medications Medications (Trade) Dose Ordered Sig/Dyllan Route PRN Reason Start Time Stop Time Status Last Admin Dose Admin Sodium Chloride 1,000 ml @ 1,000 mls/hr Q1H ONCE IV 03/06/20 15:30 03/06/20 16:29 DC 03/06/20 15:30 Sodium Chloride 1,000 ml @ 1,000 mls/hr Q1H ONCE IV 03/06/20 15:30 03/06/20 16:29 DC 03/06/20 15:30 Morphine Sulfate (Morphine Sulfate) 4 mg Q4H PRN IV PAIN 7 - 10 03/06/20 15:30 04/05/20 15:29 03/07/20 06:25 Ondansetron HCl (Zofran) 4 mg Q4H PRN IV NAUSEA / VOMITING 03/06/20 15:30 04/05/20 15:29 Albuterol Sulfate (Ventolin Hfa) 2 inh Q6HR PRN IH SHORTNESS OF BREATH 03/07/20 09:30 04/06/20 09:29 UNV Allopurinol (Zyloprim) 300 mg DAILY PO 03/08/20 09:00 04/07/20 08:59 UNV Amlodipine Besylate (Norvasc) 5 mg DAILY PO 03/07/20 09:30 04/06/20 09:29 UNV Clonidine (Catapres) 0.2 mg HS PO 03/07/20 21:00 04/06/20 20:59 UNV Fenofibrate (Triglide) 160 mg DAILY24 PO 03/07/20 09:30 04/06/20 09:29 UNV Gabapentin (Neurontin) 600 mg TID PO 03/07/20 15:00 04/06/20 14:59 UNV Losartan Potassium (Cozaar) 100 mg DAILY PO 03/07/20 09:30 04/06/20 09:29 UNV Oxcarbazepine (Trileptal) 300 mg DAILY PO 03/08/20 09:00 04/07/20 08:59 UNV Pantoprazole Sodium (Protonix) 40 mg DAILY PO 03/08/20 09:00 04/07/20 08:59 UNV Rosuvastatin Calcium (Crestor) 10 mg DAILY PO 03/08/20 09:00 04/07/20 08:59 UNV Tiotropium Delevan (Spiriva) 1 inhalation DAILY IH 03/08/20 09:00 04/07/20 08:59 UNV Course Sepsis Screening Results: Posi: POSITIVE Sepsis Qualifier/Stage: SEPSIS RISK Duration or Total Time Spent w: 45 min Vitals & review Data Vital Sign - Last 24 Hours 03/06/20 03/06/20 03/06/20 03/06/20 15:30 15:30 15:56 15:59 Temp 99.1 Pulse 83 83 Resp 18 18 18 B/P (MAP) 159/79 (105) Pulse Ox 99 99 O2 Delivery Nasal Cannula Nasal Canula Nasal Cannula O2 Flow Rate 2.00 2.00 3.00 FiO2 32 03/06/20 03/06/20 03/06/20 03/07/20 20:26 20:30 23:57 00:04 Temp 98.8 98.7 Pulse 88 89 73 Resp 20 18 18 B/P (MAP) 154/86 (108) 154/71 (98) Pulse Ox 97 O2 Delivery Nasal Cannula Nasal Cannula O2 Flow Rate 2.00 2.00 FiO2 28 03/07/20 03/07/20 03/07/20 00:30 04:15 08:45 Temp 98.6 98.5 Pulse 85 75 107 Resp 18 18 19 B/P (MAP) 150/65 (93) 186/90 (122) Pulse Ox 98 98 O2 Delivery Bi-pap O2 Flow Rate 2.50 FiO2 30 Intake and Output 03/07/20 06:59 Output Total 700 ml Balance -700 ml Laboratory Tests Test 03/06/20 15:35 03/06/20 15:52 03/06/20 19:41 White Blood Count 11.0 10^3/uL Red Blood Count 3.88 10^6/uL Hemoglobin 11.7 g/dL Hematocrit 35.8 % Mean Corpuscular Volume 92.3 fL Mean Corpuscular Hemoglobin 30.2 pg Mean Corpuscular Hemoglobin Concent 32.7 g/dL Red Cell Distribution Width 13.7 % Platelet Count 207 10^3/uL Mean Platelet Volume 9.3 fL Neutrophils (%) (Auto) 76.8 % Lymphocytes (%) (Auto) 15.2 % Monocytes (%) (Auto) 5.9 % Neutrophils # (Auto) 8.5 10^3/uL Lymphocytes # (Auto) 1.68 10^3/uL1 Monocytes # (Auto) 0.7 10^3/uL Absolute Immature Granulocyte (auto 0.03 10^3 u/L Absolute Eosinophils (auto) 0.2 10^3/uL Immature Granulocytes % 0.30 % Eosinophils % 1.5 % Basophils % 0.3 % Basophils # 0.0 10^3/uL Erythrocyte Sedimentation Rate 13 mm/hr Prothrombin Time 11.6 SEC Prothrombin Time INR (Non-Therap) 1.1 Sodium Level 140 mmol/L Potassium Level 3.2 mmol/L Chloride Level 95.0 mmol/L Carbon Dioxide Level 34.3 mmol/L Anion Gap 13.9 Blood Urea Nitrogen 17 mg/dL Creatinine 1.50 mg/dL Estimated GFR () 43.2 Est GFR (CKD-EPI)(Non-Afr [place]kinan) 35.7 BUN/Creatinine Ratio 11.0 Glucose Level 182 mg/dL Calcium Level 9.9 mg/dL Total Bilirubin 0.3 mg/dL Aspartate Amino Transf (AST/SGOT) 15 U/L Alanine Aminotransferase (ALT/SGPT) 23 U/L Alkaline Phosphatase 43 U/L C-Reactive Protein 0.68 mg/dL Total Protein 7.7 g/dL Albumin 4.2 g/dL Globulin 3.5 Albumin/Globulin Ratio 1.200 Procalcitonin < 0.05 ng/mL Bedside Glucose 156 Urine Collection Type UNKNOWN Urine Color RED Urine Appearance CLOUDY Urine Bilirubin SMALL MG/DL Urine Ictotest NEGATIVE Urine Ketones NEGATIVE Urine Specific [place] 1.015 Urine pH 5.5 Urine Protein 100 mg/dL Urine Urobilinogen NORMAL Urine Nitrate NEGATIVE Urine Leukocyte Esterase NEGATIVE Urine Blood LARGE Urine RBC TNTC RBC/HPF Urine WBC 0-2 WBC/HPF Urine Squamous Epithelial Cells FEW #/HPF Urine Bacteria RARE Urine Glucose NORMAL Bedside Stool Occult Blood NEGATIVE Stool Lactoferrin (LAB) NEGATIVE Clostridium difficile Screen NEGATIVE Clostridium Difficile Toxin A & B NEGATIVE Current Medications Medications (Trade) Dose Ordered Sig/Dyllan PRN Reason Start Time Stop Time Status Last Admin Albuterol Sulfate (Ventolin Hfa) 2 inh Q6HR PRN SHORTNESS OF BREATH 03/07/20 09:30 04/06/20 09:29 UNV Allopurinol (Zyloprim) 300 mg DAILY 03/08/20 09:00 04/07/20 08:59 UNV Amlodipine Besylate (Norvasc) 5 mg DAILY 03/07/20 09:30 04/06/20 09:29 UNV Clonidine (Catapres) 0.2 mg HS 03/07/20 21:00 04/06/20 20:59 UNV Fenofibrate (Triglide) 160 mg DAILY24 03/07/20 09:30 04/06/20 09:29 UNV Gabapentin (Neurontin) 600 mg TID 03/07/20 15:00 04/06/20 14:59 UNV Losartan Potassium (Cozaar) 100 mg DAILY 03/07/20 09:30 04/06/20 09:29 UNV Morphine Sulfate (Morphine Sulfate) 4 mg Q4H PRN PAIN 7 - 10 03/06/20 15:30 04/05/20 15:29 03/07/20 06:25 Ondansetron HCl (Zofran) 4 mg Q4H PRN NAUSEA / VOMITING 03/06/20 15:30 04/05/20 15:29 Oxcarbazepine (Trileptal) 300 mg DAILY 03/08/20 09:00 04/07/20 08:59 UNV Pantoprazole Sodium (Protonix) 40 mg DAILY 03/08/20 09:00 04/07/20 08:59 UNV Rosuvastatin Calcium (Crestor) 10 mg DAILY 03/08/20 09:00 04/07/20 08:59 UNV Tiotropium Delevan (Spiriva) 1 inhalation DAILY 03/08/20 09:00 04/07/20 08:59 UNV Sepsis Infection Criteria Pres: None LEVEL 1 SEPSIS INFECTION CRITE: Abdominal Pain LEVEL 2-SIRS (LIST ALL THAT AP: None/Not assessed Cardiovascular Evidence: Not Assessed or None Hematologic Evidence: None/Not assessed Hepatic Evidence: None/Not assessed Metabolic Evidence: None/Not assessed Neurological Evidence: None/Not assessed Respiratory Evidence: Need for O2 to keep>90%, O2 SAT<90room air Renal Evidence: None/Not assessed O2 Sat by Pulse Oximetry: 98 Respiratory End-tidal CO2: 97 Oxygen Flow Rate: 2.50 Assessment/Plan Assessment/Plan Assessment/Plan 59 yo female with LLQ pain and obstructed L urteral stone with hydronephrosis, hematochezia, CML, HTN, Type 2 DM - urology consulted; will go for cysto with possible stent placement - check stool for blood - pain control - IV cipro started for her urinary issues - follow BPs and sugars on her home meds FERNANDEZ GIRON MD Mar 07, 2020 09:27
[2020-03-07] MEDS: WELLBUTRIN XL PO SCH (09:30)
[2020-03-07] MEDS ORDERED: VENTOLIN HFA IH PRN (09:30)
[2020-03-07] MEDS: TRICOR PO SCH (09:30)
[2020-03-07] MEDS: NORVASC PO SCH (09:30)
[2020-03-07] MEDS: COREG PO SCH ×2 (09:30→20:16)
[2020-03-07] MEDS: COZAAR PO SCH (09:30)
[2020-03-07] MEDS ORDERED: SODIUM CHLORIDE IRR BOTTLE IR ONE (09:45)
[2020-03-07] MEDS ORDERED: NS 3000ML IRR IR ONE (09:45)
[2020-03-07] MEDS: CIPRO 200 ML IV SCH ×2 (10:12→20:17)
[2020-03-07] MEDS ORDERED: NS 1000ML 1,000 ML ONE (11:34)
[2020-03-07] MEDS ORDERED: LIDOCAINE 2% VIAL ONE (12:19)
[2020-03-07] MEDS ORDERED: VERSED ONE (12:19)
[2020-03-07] MEDS ORDERED: DILAUDID ONE (12:19)
[2020-03-07] MEDS ORDERED: DIPRIVAN IV ONE (12:19)
[2020-03-07] MEDS ORDERED: PEPCID IV ONE (12:20)
[2020-03-07] MEDS ORDERED: ZOFRAN ONE (12:20)
[2020-03-07] MEDS ORDERED: KCL 20MEQ/100ML 100 ML IV ONE (12:21)
[2020-03-07] MEDS ORDERED: LACTATED RINGERS 1,000 ML IV SCH (13:00)
--- NOTE | 2020-03-07 13:10 | OPH ---
DATE OF SURGERY: 03/07/2020 PREOPERATIVE DIAGNOSIS: Calculus in the left proximal ureter. FINAL DIAGNOSIS: Calculus in the left proximal ureter. PROCEDURES: Cystoscopy, left retrograde, stone manipulation and insertion of double-J left ureteral stent. DESCRIPTION OF PROCEDURE: The patient was brought to the cystoscopy room, was put in supine position on the cystoscopy table. After the patient was given IV sedation, the patient was placed in the lithotomy position. The genitalia was then prepped and draped aseptically in the usual manner. A 23-Ethiopian cystoscope was first inserted into the urethra up to the bladder. With the use of the right angle lens, the bladder was visualized. There was no tumor, no calculi, and no ulcerations seen. Both ureteral orifices were normal. Initial left retrograde was done by inserting a 7-Ethiopian ureteral catheter in the left ureteral orifice, injected with a dye, which shows the stone in the left proximal ureter with hydronephrosis. After this was confirmed, a Glidewire was inserted through the left ureter and a double-J left ureteral stent was then inserted from the left ureteral orifice up to the left renal pelvis. The stone appears to have moved up to the left renal pelvis during the manipulation and an insertion of the stent. After this was done, the Glidewire was removed. The cystoscope was reinserted to the bladder and the bladder was emptied with water. Procedure was terminated. The patient was awakened, was transferred to the recovery room in stable condition. Emery Marie MD DR: NAVEEN/scott JOB# [id number]
[2020-03-07] MEDS ORDERED: DILAUDID IV PRN (13:30)
[2020-03-07] MEDS ORDERED: VENTOLIN IH PRN (13:30)
[2020-03-07] MEDS ORDERED: ZOFRAN IV PRN (13:30)
--- NOTE | 2020-03-07 13:47 | NUR ---
patient arrived back from surgery at 1333. patient is resting in bed with eyes closed. VSS.
[2020-03-07] MEDS: XANAX PO SCH ×2 (14:08→20:14)
[2020-03-07] MEDS: NEURONTIN PO SCH ×2 (14:08→20:15)
[2020-03-07] MEDS: ATROVENT IH SCH ×2 (15:00→21:45)
--- NOTE | 2020-03-07 15:08 | DIREP ---
PROCEDURE:XRAY FLUOROSCOPY COMPARISON:None. INDICATIONS:CYSTO W RETROGRADE TECHNIQUE:Intraoperative fluoroscopy FINDINGS: Intraoperative fluoroscopy for retrograde evaluation of the left ureter. There appears to be a stone in the left intrarenal collecting system. Mild distention of the collecting system at time of the evaluation. Placement of a left ureteral stent. The right side was not evaluated. Fluoro time 73.2 seconds Images: 9 Contrast: 10 cc CONCLUSION: Intraoperative fluoroscopy for placement of a left ureteral stent. Dictated by: Mckayla Alvarez MD on 03/07/2020 at 03:05 PM
[2020-03-07] MEDS ORDERED: NS 500ML 500 ML IV ONE (18:30)
[2020-03-07] MEDS ORDERED: CATAPRES ONE (19:44)
[2020-03-07] MEDS ORDERED: NS 250ML 250 ML IV ONE (19:48)
--- NOTE | 2020-03-07 20:09 | CNH ---
DATE OF CONSULTATION: 03/07/2020 PRIMARY PHYSICIAN: Dr. Robles. CONSULTING PHYSICIAN: Dr. Mathew. CHIEF COMPLAINT: Lower left quadrant pain, nausea, vomiting, hematochezia, dehydration, history of renal calculi, obstructive uropathy. 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 She is doing well from a cardiopulmonary standpoint. ALLERGIES: FENTANYL, FLU VACCINE, PENICILLIN, KEFLEX, MANDOL, PYRIDIUM, ASPIRIN, CODEINE, IODINE, SULFA. MEDICATIONS: She has been on Zofran 4 mg q.8 hours, allopurinol 300 mg once a day, Ultram 100 mg 4 times a day on p.r.n. basis, fenofibrate 160 mg once a day. She was on Adderall 30 mg daily, but I do not think she is taking it at the present time, amlodipine 5 mg once a day, Levothroid 150 mcg once a day, Xopenex inhaler 2 puffs daily, Asmanex 2 puffs daily, metformin 500 mg twice a day, losartan 100 mg once a day, Lasix 60 mg daily and sometimes takes 80 mg daily, Sprycel 100 mg daily for chronic myeloid leukemia, vitamin D3 10,000 units 3 times a week, oxcarbazepine 300 mg daily, Coreg 25 mg twice a day, Protonix 40 mg once a day, Spiriva 18 mcg handheld nebulizer once a day, clonidine 0.2 mg at bedtime and Crestor 10 mg once a day, Linzess 290 mcg capsule daily for irritable colon syndrome and gabapentin 300 mg 2 capsules 3 times a day, tizanidine 4 mg 3 times a day on p.r.n. basis, and Cymbalta 60 mg daily. PAST MEDICAL HISTORY: Multiple chronic medical problems already narrated in my history of present illness. She has had recurrent hospitalizations from pneumonias with underlying immune compromised status with leukemia. She has been followed by electrical and instrumentation manager. See my office note for the details. FAMILY HISTORY: Mother of pulmonary fibrosis. Brother has CAD, hypertension in the family. PAST SURGICAL HISTORY: Hysterectomy, benign breast biopsies, 2 C-sections, prior ventral hernia operation, cholecystectomy, recurrent kidney stones and has had lithotripsy. REVIEW OF SYSTEMS: Revealed fatigue, weakness, shortness of breath and low oxygen at times and pain in the left lower quadrant, swelling on the left flank. PHYSICAL EXAMINATION: GENERAL: She was alert, awake, oriented, 170 cm, 113 kg, and BMI 39.4. VITAL SIGNS: Showing 97 temperature, pulse is 90, respirations 20, 152/80 blood pressure, 97 saturation on 3 liters nasal cannula. HEENT: Unremarkable. NECK: No JVD, no carotid bruit, significant pallor noted. CHEST: Thick chest wall. LUNGS: Poor air entry bilaterally. HEART: Sounds S1, S2 normal. ABDOMEN: Truncal obesity, pain in the left flank [] bulging of the left side of the belly was noted. Distal pulses poorly felt. Mild dependent edema. NEUROLOGIC: No focal neuro deficit is documented. Lab data showed 11,000 white count and 11.7 hemoglobin. Chemistry 1.5 creatinine, 17 BUN, 3.2 potassium, 156 glucose, procalcitonin was less than 0.05. INR 1.1. Urine; numerous rbc's and wbc's were noted. Stool was unremarkable. C. difficile was negative. Her COVID status in the past has been negative. Urine cultures showed no growth and her abdominal CT showed 3-mm stone in left ureter at the level of L3, left hydroureter, hydronephrosis, bilateral renal cortical calcifications and scarring, nonobstructing 2-mm stone in the left renal collecting system and left small pleural effusion and atherosclerosis. Chest x-ray was showing borderline cardiomegaly, otherwise unremarkable. Her EKGs in the office have been essentially unremarkable. She has had a normal myocardial perfusion scan in the past. IMPRESSION: Obstructive uropathy, hypertension, hypertensive heart disease, chronic diastolic heart failure, obesity, chronic myeloid leukemia, obstructive sleep apnea syndrome on BiPAP, underlying chronic lung disease oxygen dependent. PLAN: At this time, the patient seems to be stable, wanted to go surgery or undergo stent placement by Dr. Marie for her obstructive uropathy. Thank you very much for this consultation. Alex Mathew MD DR: EMY/scott JOB# [id number]
[2020-03-07] MEDS: URISPAS PO SCH (21:00)
[2020-03-07] MEDS ORDERED: CATAPRES PO SCH (21:00)
--- NOTE | 2020-03-07 21:30 | NUR ---
HEMATURIA During report, this RN was notified that the pt has not voided since her return from the OR at approximately 1330. Pt received a 500ml bolus of NS and a bladder scan was performed. Approx. 175mls noted on bladder scan. RN informed if pt had not voided by 2100 to straight cath her. At approximately 0, Pt reported to Rn that she had voided. Notified Dr. Robles at this time due to pt's recent urination of bright red/bloody urine. Urine output at this time is 100mls. Received orders to start pt on 100mg urispas x1 dose now then continue with 100mg TID. Will continue to monitor urinary output and pt condition. Will notify provider of any changes.
[2020-03-08] VITALS (9 sets, daily range): BP systolic 126–164; BP diastolic 65–91
[2020-03-08] MEDS: ATROVENT IH SCH ×3 (03:00→14:29)
[2020-03-08] MEDS: MORPHINE SULFATE IV PRN ×3 (03:31→18:37)
[2020-03-08 04:46] LABS: BASOPHIL % 0.2 % (0.0-0.2); EOSINOPHIL # 0.2 10^3/uL (0.0-0.2); EOSINOPHIL % 3.5 % (0.0-5.0); LYMPHOCYTES % 21.7 % (24.0-44.0); MEAN CORP HGB 30.6 pg (26-34); MONOCYTES # 0.5 10^3/uL (0.3-0.8); MONOCYTES % 8.9 % (5.0-12.0); NEUTROPHIL # 3.9 10^3/uL (1.8-7.7); NEUTROPHILS % 65.4 % (41.0-85.0); PLATELET COUNT 120 10^3/uL (150-400); RED CELL DISTRIBUTION WIDTH 13.7 % (11.5-14.5)
[2020-03-08 05:15] LABS: CALCIUM 8.3 mg/dL (8.4-10.5)
[2020-03-08] MEDS ORDERED: SYNTHROID PO SCH (06:30)
[2020-03-08] MEDS: XANAX PO SCH ×2 (08:24→13:59)
[2020-03-08] MEDS: NEURONTIN PO SCH ×2 (08:25→13:59)
[2020-03-08] MEDS: NORVASC PO SCH (08:26)
[2020-03-08] MEDS: COREG PO SCH (08:26)
[2020-03-08] MEDS: WELLBUTRIN XL PO SCH (08:27)
[2020-03-08] MEDS: TRICOR PO SCH (08:27)
[2020-03-08] MEDS: COZAAR PO SCH (08:28)
[2020-03-08] MEDS ORDERED: CRESTOR PO ONE (08:37)
[2020-03-08] MEDS: CIPRO 200 ML IV SCH (08:42)
--- NOTE | 2020-03-08 08:49 | DIET.OP ---
Nutrition Asmt/Malnutrit 2-17 Actual Date of Review: Mar 08, 2020 Nutritional Screening: Nutritional Screening (pt reports reduced po and wt loss) Diagnosis: ureter calculi Pertinent Medical Hx/Surgical: COPD, recurrent pneumonia, hypothyroidism, CML, T2DM Subjective Information: telehealth assessment - Pt with LLQ pain and n/v the last week causing dehydrations and reduced po intake. s/p ureteral stent placement yesterday. Diet advanced from clears and full liquids to CC today. Vomiting resolved. Current Diet Order/Nutrition S: 1600 ck ADA Patient /S.O: Not Indicated Pertinent Meds Current Medications Medications (Trade) Dose Ordered Sig/Dyllan Route PRN Reason Start Time Stop Time Status Last Admin Dose Admin Sodium Chloride 1,000 ml @ 1,000 mls/hr Q1H ONCE IV 03/06/20 15:30 03/06/20 16:29 DC 03/06/20 15:30 Sodium Chloride 1,000 ml @ 1,000 mls/hr Q1H ONCE IV 03/06/20 15:30 03/06/20 16:29 DC 03/06/20 15:30 Morphine Sulfate (Morphine Sulfate) 4 mg Q4H PRN IV PAIN 7 - 10 03/06/20 15:30 04/05/20 15:29 03/08/20 03:31 Ondansetron HCl (Zofran) 4 mg Q4H PRN IV NAUSEA / VOMITING 03/06/20 15:30 04/05/20 15:29 03/07/20 20:34 Albuterol Sulfate (Ventolin Hfa) 2 inh Q6HR PRN IH SHORTNESS OF BREATH 03/07/20 09:30 04/06/20 09:29 Allopurinol (Zyloprim) 300 mg DAILY PO 03/08/20 09:00 04/07/20 08:59 Amlodipine Besylate (Norvasc) 5 mg DAILY PO 03/07/20 09:30 04/06/20 09:29 03/08/20 08:26 Clonidine (Catapres) 0.2 mg HS PO 03/07/20 21:00 04/06/20 20:59 03/07/20 20:16 Fenofibrate (Tricor) 145 mg DAILY PO 03/07/20 09:30 04/06/20 09:29 03/08/20 08:27 Gabapentin (Neurontin) 600 mg TID PO 03/07/20 15:00 04/06/20 14:59 03/08/20 08:25 Losartan Potassium (Cozaar) 100 mg DAILY PO 03/07/20 09:30 04/06/20 09:29 03/08/20 08:28 Oxcarbazepine (Trileptal) 300 mg DAILY PO 03/08/20 09:00 04/07/20 08:59 Pantoprazole Sodium (Protonix) 40 mg DAILY PO 03/08/20 09:00 04/07/20 08:59 Rosuvastatin Calcium (Crestor) 10 mg DAILY PO 03/08/20 09:00 04/07/20 08:59 Ipratropium [place] (Atrovent) 0.5 mg RTQ6 IH 03/07/20 15:00 04/06/20 14:59 03/07/20 21:45 Alprazolam (Xanax) 2 mg TID PO 03/07/20 15:00 04/06/20 14:59 03/08/20 08:24 Bupropion HCl (Wellbutrin Xl) 300 mg DAILY24 PO 03/07/20 09:30 04/06/20 09:29 03/08/20 08:27 Carvedilol (Coreg) 25 mg BID PO 03/07/20 09:30 04/06/20 09:29 03/08/20 08:26 Levothyroxine Sodium (Synthroid) 150 mcg ACB PO 03/08/20 06:30 04/07/20 06:29 03/08/20 06:49 Sodium Chloride (Sodium Chloride Irr Bottle) 1,000 ml STK-MED ONCE IR 03/07/20 09:45 03/07/20 09:45 DC Sodium Chloride (NS 3000ml Irr) 3,000 ml STK-MED ONCE IR 03/07/20 09:45 03/07/20 09:45 DC Sodium Chloride 1,000 ml @ ud STK-MED ONCE .ROUTE 03/07/20 11:34 03/07/20 11:35 DC Lidocaine HCl (Lidocaine 2% Vial) 500 mg STK-MED ONCE .ROUTE 03/07/20 12:19 03/07/20 12:19 DC Hydromorphone HCl (Dilaudid) 2 mg STK-MED ONCE .ROUTE 03/07/20 12:19 03/07/20 12:20 DC Propofol (Diprivan) 200 mg STK-MED ONCE IV 03/07/20 12:19 03/07/20 12:20 DC Ondansetron HCl (Zofran) 4 mg STK-MED ONCE .ROUTE 03/07/20 12:20 03/07/20 12:20 DC Famotidine (Pepcid) 20 mg STK-MED ONCE IV 03/07/20 12:20 03/07/20 12:20 DC Potassium Chloride 100 ml @ 50 mls/hr OT ONCE IV 03/07/20 12:21 03/07/20 14:20 DC 03/07/20 13:58 Hydromorphone HCl (Dilaudid) 0.2 mg Q5M PRN IV PAIN 1 - 3 03/07/20 13:30 03/07/20 18:09 DC Ondansetron HCl (Zofran) 4 mg OT PRN IV nausea 03/07/20 13:30 03/07/20 15:00 DC Albuterol Sulfate (Ventolin) 2.5 mg OT PRN IH wheezing 03/07/20 13:30 03/07/20 15:00 DC Sodium Chloride 500 ml @ 1,000 mls/hr Q30M ONCE IV 03/07/20 18:30 03/07/20 20:02 DC 03/07/20 18:19 Clonidine (Catapres) 0.2 mg STK-MED ONCE .ROUTE 03/07/20 19:44 03/07/20 19:44 DC Sodium Chloride 250 ml @ ud STK-MED ONCE IV 03/07/20 19:48 03/07/20 19:48 DC Flavoxate HCl (Urispas) 100 mg TID PO 03/07/20 21:00 04/06/20 20:59 03/07/20 21:00 Pertinent Labs Laboratory Tests Test 03/06/20 15:35 03/06/20 15:52 03/06/20 19:41 03/07/20 13:01 White Blood Count 11.0 10^3/uL Red Blood Count 3.88 10^6/uL Hemoglobin 11.7 g/dL Hematocrit 35.8 % Mean Corpuscular Volume 92.3 fL Mean Corpuscular Hemoglobin 30.2 pg Mean Corpuscular Hemoglobin Concent 32.7 g/dL Red Cell Distribution Width 13.7 % Platelet Count 207 10^3/uL Mean Platelet Volume 9.3 fL Neutrophils (%) (Auto) 76.8 % Lymphocytes (%) (Auto) 15.2 % Monocytes (%) (Auto) 5.9 % Neutrophils # (Auto) 8.5 10^3/uL Lymphocytes # (Auto) 1.68 10^3/uL1 Monocytes # (Auto) 0.7 10^3/uL Absolute Immature Granulocyte (auto 0.03 10^3 u/L Absolute Eosinophils (auto) 0.2 10^3/uL Immature Granulocytes % 0.30 % Eosinophils % 1.5 % Basophils % 0.3 % Basophils # 0.0 10^3/uL Erythrocyte Sedimentation Rate 13 mm/hr Prothrombin Time 11.6 SEC Prothrombin Time INR (Non-Therap) 1.1 Sodium Level 140 mmol/L Potassium Level 3.2 mmol/L Chloride Level 95.0 mmol/L Carbon Dioxide Level 34.3 mmol/L Anion Gap 13.9 Blood Urea Nitrogen 17 mg/dL Creatinine 1.50 mg/dL Estimated GFR () 43.2 Est GFR (CKD-EPI)(Non-Afr Israeli) 35.7 BUN/Creatinine Ratio 11.0 Glucose Level 182 mg/dL Calcium Level 9.9 mg/dL Total Bilirubin 0.3 mg/dL Aspartate Amino Transf (AST/SGOT) 15 U/L Alanine Aminotransferase (ALT/SGPT) 23 U/L Alkaline Phosphatase 43 U/L C-Reactive Protein 0.68 mg/dL Total Protein 7.7 g/dL Albumin 4.2 g/dL Globulin 3.5 Albumin/Globulin Ratio 1.200 Procalcitonin < 0.05 ng/mL Bedside Glucose 156 123 Urine Collection Type UNKNOWN Urine Color RED Urine Appearance CLOUDY Urine Bilirubin SMALL MG/DL Urine Ictotest NEGATIVE Urine Ketones NEGATIVE Urine Specific Green 1.015 Urine pH 5.5 Urine Protein 100 mg/dL Urine Urobilinogen NORMAL Urine Nitrate NEGATIVE Urine Leukocyte Esterase NEGATIVE Urine Blood LARGE Urine RBC TNTC RBC/HPF Urine WBC 0-2 WBC/HPF Urine Squamous Epithelial Cells FEW #/HPF Urine Bacteria RARE Urine Glucose NORMAL Bedside Stool Occult Blood NEGATIVE Stool Lactoferrin (LAB) NEGATIVE Clostridium difficile Screen NEGATIVE Clostridium Difficile Toxin A & B NEGATIVE Test 03/08/20 04:29 White Blood Count 6.0 10^3/uL Red Blood Count 3.24 10^6/uL Hemoglobin 9.9 g/dL Hematocrit 30.3 % Mean Corpuscular Volume 93.5 fL Mean Corpuscular Hemoglobin 30.6 pg Mean Corpuscular Hemoglobin Concent 32.7 g/dL Red Cell Distribution Width 13.7 % Platelet Count 120 10^3/uL Mean Platelet Volume 9.5 fL Neutrophils (%) (Auto) 65.4 % Lymphocytes (%) (Auto) 21.7 % Monocytes (%) (Auto) 8.9 % Neutrophils # (Auto) 3.9 10^3/uL Lymphocytes # (Auto) 1.30 10^3/uL1 Monocytes # (Auto) 0.5 10^3/uL Absolute Immature Granulocyte (auto 0.02 10^3 u/L Absolute Eosinophils (auto) 0.2 10^3/uL Immature Granulocytes % 0.30 % Eosinophils % 3.5 % Basophils % 0.2 % Basophils # 0.0 10^3/uL Sodium Level 144 mmol/L Potassium Level 3.2 mmol/L Chloride Level 106.0 mmol/L Carbon Dioxide Level 31.0 mmol/L Glucose Level 185 mg/dL Blood Urea Nitrogen 6 mg/dL Creatinine 1.03 mg/dL Calcium Level 8.3 mg/dL Anion Gap 10.2 Estimated GFR () 66.6 Est GFR (CKD-EPI)(Non-Afr Israeli) 55.0 BUN/Creatinine Ratio 5.0 Height (Feet): 5 Height (Inches): 7 Current Weight: 251 %IBW: 186 Recent Weight Change: Yes (9# wt loss over last 8 months) Weight Status: Obese GI Symptoms: Last BM (03/06), [place] Food Allergies: Yes (egg) Calories/Kcals/K-30 kcal/kg of IBW Kcals Calculated: 4203-0041 Protein g/k-1.5 g/kg IBW Protein Calculated: 61-91 Fluid: ml: 1 ml/kcal Nutritional Problem: Nutr. Problems Present Problems: 1. Inadequate oral intake r/t ureter calculi/abdominal pain AEB n/v and reduced po intake for 1 week prior and clear liquid/full liquid diet the last [address] Comments: 1. Continue [address] to monitor po intake and tolerance. 2. Continue Zofran prn. 3. Monitor BG and correct as appropriate. 4. RD to provide diet education if appropriate based on pt's status. 5. Recommend outpatient nutrition counseling for DM/wt loss RD to monitor PO intake, diet tolerance, weight, education needs, and care plan. Expected Outcomes 100% po intake of most meals and snacks the next 3 days. discharge on consistent carb diet with outpatient nutrition counseling. Malnutrtion/Nutrition Risk Edu: No MD Notificiation Needed?: No Chanda George Mar 08, 2020 08:49
[2020-03-08] MEDS: URISPAS PO SCH ×2 (08:52→13:59)
[2020-03-08] MEDS ORDERED: PROTONIX PO SCH (09:00)
[2020-03-08] MEDS ORDERED: ZYLOPRIM PO SCH (09:00)
[2020-03-08] MEDS ORDERED: TRILEPTAL PO SCH (09:00)
[2020-03-08] MEDS ORDERED: CRESTOR PO SCH (09:00)
[2020-03-08] MEDS ORDERED: NORVASC PO STA (09:21)
--- NOTE | 2020-03-08 10:50 | PNH ---
DATE: 03/08/2020 SUBJECTIVE: The patient is doing much better. She underwent stent placement in the left kidney for hydroureter and hydronephrosis and still having some pain and swelling in the left side of the abdomen, but overall much improved. OBJECTIVE: VITAL SIGNS: Her blood pressure has gone up to 161/95, pulse is 95, respirations 19, 98 temperature and 93 saturation. NECK: No JVD. LUNGS: Clear. HEART: Sounds normal. I did add her amlodipine 5 mg daily and she is on losartan 100 mg once a day, Coreg 25 mg twice a day for her hypertension. LABORATORY DATA: Her white count has come down to 11,000 to 6,000; hemoglobin is 9.9, initially was 11.7. Her chemistries are showing a potassium of 3.2, glucose 185. Calcium was 8.3 and BUN has come down from 17 to 6 and creatinine from 1.5 to 1.03. Significant improvement of acute kidney injury following relief of left hydroureter and hydronephrosis after stent placement for a stone in the left kidney. IMPRESSION: Obstructive uropathy post-stent placement, nephrolithiasis in both kidneys, hypertension, hypertensive heart disease, chronic diastolic heart failure, chronic myeloid leukemia, COPD, obstructive sleep apnea syndrome, on BiPAP machine. PLAN: At this time, her home medications reconciled, to continue chemotherapeutic agent for CML and control of blood pressure and pain control. Alex Mathew MD DR: EMY/scott JOB# [id number]
--- NOTE | 2020-03-08 16:41 | DIREP ---
PROCEDURE: XRAY FLUOROSCOPY COMPARISON: None. INDICATIONS: CYSTO W RETROGRADE TECHNIQUE: Intraoperative fluoroscopy FINDINGS: Intraoperative fluoroscopy for retrograde evaluation of the left ureter. There appears to be a stone in the left intrarenal collecting system. Mild distention of the collecting system at time of the evaluation. Placement of a left ureteral stent. The right side was not evaluated. Fluoro time 73.2 seconds Images: 9 Contrast: 10 cc CONCLUSION: Intraoperative fluoroscopy for placement of a left ureteral stent. Dictated by: Mckayla Avlarez MD on 03/07/2020 at 03:05 PM F
[2020-03-08] MEDS ORDERED: DOXY100C2 PO (17:58)
[2020-03-09] MEDS ORDERED: LASIX PO SCH (09:00)
[2020-03-09] MEDS ORDERED: CYMBALTA PO SCH (09:00)
[2020-03-09] MEDS ORDERED: NORVASC PO SCH (09:00)
--- NOTE | 2020-03-09 14:35 | PRM.DC ---
DISCHARGE SUMMARY DISCHARGE SUMMARY DATE OF ADMISSION: March 06, 2020 DATE OF DISCHARGE: March 08, 2020 ADMITTING DIAGNOSES: Lower quadrant pain with nausea vomiting and dehydration and recent hematochezia DISCHARGE DIAGNOSES: Left ureteral stone with obstruction and left hydronephrosis, history of CML and left lower quadrant pain DISCHARGE DISPOSITION: Patient is discharged home DISCHARGE CONDITION: Improved HOSPITAL COURSE: 59-year-old female who came into the hospital with left lower quadrant pain and having history of hematochezia. We were initially concerned about a possible GI problem and a CAT scan was done that showed a left ureteral stone with left hydronephrosis. I consulted urology and a cystoscopy was done with a stent placement. I did check her stools and that has been negative for blood at this time. Her vital signs have been stable after the cystoscopy. At this time she will be discharged and follow-up with urology next week for lithotripsy and stent removal after that. I am putting her on doxycycline for 10 days in the meantime for a UTI picture. And I plan to send her to GI for a colonoscopy down the road. DIET: Resume home diet ACTIVITY: As tolerated MEDICATIONS: 1. Resume home medications 2. Doxycycline 100 mg p.o. twice daily x10 days FOLLOW-UP: 1. Follow-up with Dr. Marie next week for lithotripsy 2. Follow-up with me in 2 weeks time; office staff will make the appointment FERNANDEZ GIRON MD Mar 09, 2020 14:35
== END 2020-03-08 19:11 | disposition home or self-care (01) | DRG 660 ==
LOC: MS 14:55
PROVIDERS: ADMIT Pediatrics; ATTEND Pediatrics
PROC: 0T778DZ Dilation of Left Ureter with Intraluminal Device, Via Natural or Artificial Opening Endoscopic (ICD-10-PCS; 2020-03-07)
PROC: 5A09357 Assistance with Respiratory Ventilation, Less than 24 Consecutive Hours, Continuous Positive Airway Pressure (ICD-10-PCS; 2020-03-07)
PROC: BT1F1ZZ Fluoroscopy of Left Kidney, Ureter and Bladder using Low Osmolar Contrast (ICD-10-PCS; 2020-03-07)
PROC: 0TJB8ZZ Inspection of Bladder, Via Natural or Artificial Opening Endoscopic (ICD-10-PCS; principal; 2020-03-07 10:00)
DX: N13.2 Hydronephrosis with renal and ureteral calculous obstruction (principal); K92.1 Melena; I50.32 Chronic diastolic (congestive) heart failure; C92.10 Chronic myeloid leukemia, BCR/ABL-positive, not having achieved remission; E86.0 Dehydration; I11.0 Hypertensive heart disease with heart failure; E03.9 Hypothyroidism, unspecified; E11.9 Type 2 diabetes mellitus without complications; E66.9 Obesity, unspecified; G47.33 Obstructive sleep apnea (adult) (pediatric); J44.9 Chronic obstructive pulmonary disease, unspecified; Z80.0 Family history of malignant neoplasm of digestive organs; Z82.49 Family history of ischemic heart disease and other diseases of the circulatory system; Z87.01 Personal history of pneumonia (recurrent); Z99.81 Dependence on supplemental oxygen; Z90.710 Acquired absence of both cervix and uterus; Z88.0 Allergy status to penicillin; Z88.1 Allergy status to other antibiotic agents; Z88.5 Allergy status to narcotic agent; Z88.2 Allergy status to sulfonamides; Z88.8 Allergy status to other drugs, medicaments and biological substances; Z88.6 Allergy status to analgesic agent; Z90.49 Acquired absence of other specified parts of digestive tract; Z98.891 History of uterine scar from previous surgery; Z82.0 Family history of epilepsy and other diseases of the nervous system; Z82.5 Family history of asthma and other chronic lower respiratory diseases; Z82.3 Family history of stroke; Z91.041 Radiographic dye allergy status; Z91.012 Allergy to eggs; Z91.040 Latex allergy status; Z79.899 Other long term (current) drug therapy
CPT/HCPCS: 36415; 71046; 74176; 74420; 76000; 80048; 80053; 81000; 82272; 82948; 83630; 84145; 85025; 85610; 85651; 86140; 87045; 87086; 87230; 93005; 94640; A4217; G0378; J0744; J1170; J2001; J2250; J2270; J2405; J3490; J7030; J7040; J7050; J7120; J7644; Q9966; C1758; C1769; C2617; J3480

== ENCOUNTER → 2020-03-15 | Day surgery (SDC) | payer MEDICARE ==
[2020-03-15] VITALS (7 sets, daily range): BP systolic 136–143; BP diastolic 74–96
[~2020-03-15] VITALS: Ht 170.2 cm; Wt 114.0 kg
[~2020-03-15] MED LIST changes: +DECADRON ONE; +DILAUDID IV PRN; +DILAUDID ONE; +DIPRIVAN IV ONE; +DOXY100C2 PO; +FLAVOXATE PO; +KETAMINE HCL-Non-Preferred ONE; +LACTATED RINGERS 1,000 ML IV SCH; +LASIX IV ONE; +LASIX ONE; +LEVAQUIN 100 ML IV ONE; +LIDOCAINE 2% VIAL ONE; +NS 1000ML 1,000 ML IV SCH; +OFIRMEV IV SCH; +PEPCID IV ONE; +PEPCID IV STA; +PHENERGAN ONE; +ZOFRAN ONE
--- NOTE | 2020-03-15 09:08 | DIREP ---
PROCEDURE:XRAY ABDOMEN SINGLE VW COMPARISON:None. INDICATIONS:ESWL FINDINGS: BOWEL GAS PATTERN:[id number] fecal burden within the proximal colon. The distal colon appears relatively decompressed. No dilated loops of small bowel are identified. CALCIFICATIONS:No suspicious calcifications are appreciated. Left ureteral stent is present. LUNG BASES:Not adequately imaged. BONES:Degenerative changes of the lower lumbar spine. OTHER:Surgical clips within the right upper quadrant suggest previous cholecystectomy. CONCLUSION: 1. Nonspecific nonobstructive bowel gas pattern. [id number] fecal burden within the proximal colon. 2. Left ureteral stent is present. No suspicious calcifications are identified. Dictated by: Rashaad Ramires M.D. On 03/15/2020 at 09:05 AM
--- NOTE | 2020-03-15 10:12 | OPH ---
DATE OF SURGERY: 03/15/2020 DESCRIPTION OF PROCEDURE: The patient was brought to the lithotripsy room, was put in supine position in the lithotripsy table. The patient's preop KUB and renal ultrasound revealed a stone in the mid pole of the left kidney measuring 5.8 mm in diameter. The patient also has indwelling left ureteral stent. After the patient was given IV sedation and after localization of the stone, we used an ultrasound and fluoroscopy, a left ESWL was then performed using a Dornier Compact Delta II lithotripter. A total of 1500 shockwaves were delivered to the stones in the left kidney under ultrasound guidance. After fragmentation of the stone as noted in the ultrasound, procedure was terminated. The patient was awakened, was transferred to the recovery room in stable condition. Emery Marie MD DR: NAVEEN/scott JOB# [id number]
== END | disposition home or self-care (01) ==
LOC: SDC 07:35
PROVIDERS: ATTEND Urology
DX: N20.0 Calculus of kidney (principal); E66.01 Morbid (severe) obesity due to excess calories; J44.9 Chronic obstructive pulmonary disease, unspecified; G47.33 Obstructive sleep apnea (adult) (pediatric); M79.7 Fibromyalgia; E11.9 Type 2 diabetes mellitus without complications; M47.816 Spondylosis without myelopathy or radiculopathy, lumbar region; Z91.040 Latex allergy status; Z88.0 Allergy status to penicillin; Z88.2 Allergy status to sulfonamides; Z88.8 Allergy status to other drugs, medicaments and biological substances; Z91.018 Allergy to other foods; Z90.710 Acquired absence of both cervix and uterus; Z87.01 Personal history of pneumonia (recurrent); Z79.899 Other long term (current) drug therapy; Z98.890 Other specified postprocedural states; Z79.84 Long term (current) use of oral hypoglycemic drugs; Z88.6 Allergy status to analgesic agent
CPT/HCPCS: 50590; 74018; 82948; J1100; J1170; J1956; J2001; J2405; J2550; J3490 ×2; J1940

== ENCOUNTER 2020-03-20 08:13 | Day surgery (SDC) | payer MEDICARE ==
[~2020-03-20] VITALS: Ht 170.2 cm; Wt 113.9 kg
[2020-03-20] VITALS (7 sets, daily range): BP systolic 142–154; BP diastolic 70–82
[~2020-03-20 08:13] MED LIST changes: -DECADRON ONE; -DILAUDID IV PRN; -DILAUDID ONE; -DIPRIVAN IV ONE; -FLAVOXATE PO; -KETAMINE HCL-Non-Preferred ONE; -LASIX IV ONE; -LASIX ONE; -LIDOCAINE 2% VIAL ONE; +NS 1000ML 1,000 ML ONE; -OFIRMEV IV SCH; -PEPCID IV ONE; -PEPCID IV STA; -PHENERGAN ONE; -ZOFRAN ONE
[2020-03-20] MEDS ORDERED: SUBLIMAZE ONE (09:45)
[2020-03-20] MEDS ORDERED: VERSED ONE (09:46)
[2020-03-20] MEDS ORDERED: SODIUM CHLORIDE IRR BOTTLE IR ONE (09:48)
[2020-03-20] MEDS ORDERED: NS 3000ML IRR IR ONE (09:48)
[2020-03-20] MEDS ORDERED: KETAMINE HCL-Non-Preferred ONE (10:00)
--- NOTE | 2020-03-20 10:47 | OPH ---
DATE OF SURGERY: 03/20/2020 PREOPERATIVE DIAGNOSIS: Left renal calculus, status post extracorporeal shock wave lithotripsy with an indwelling stent. FINAL DIAGNOSIS: Left renal calculus, status post extracorporeal shock wave lithotripsy with an indwelling stent. PROCEDURES: Cystoscopy, removal of left ureteral stent with left ureteroscopy. DESCRIPTION OF PROCEDURE: The patient was brought to the cystoscopy room, was put in supine position on the cystoscopy table. After the patient was given IV sedation, the patient was placed in lithotomy position. Genitalia was then prepped and draped aseptically in the usual manner. First, a 23-[place] cystoscope was inserted per urethra up to the bladder and the bladder was visualized and left ureteral stent was removed and replaced with a Glidewire. The cystoscope was then removed and then a 7-[place] semirigid ureteroscope was inserted through the urethra to the left ureteral orifice through the guidewire all the way to the left renal pelvis and it revealed no evidence of residual ureteral stone. The Glidewire was removed. The ureteroscope was removed and then a cystoscope was inserted to the bladder and the bladder was emptied with water. After that, the instrument was removed. The patient was then awakened, was transferred to the recovery room in stable condition. Emery Marie MD DR: NAVEEN/scott JOB# [id number]
[2020-03-20] MEDS ORDERED: LACTATED RINGERS 1,000 ML IV SCH (11:00)
[2020-03-20] MEDS ORDERED: FLAVOXATE PO (11:07)
--- NOTE | 2020-03-20 11:22 | DIREP ---
PROCEDURE:XRAY FLUOROSCOPY COMPARISON:[facility], CR, XRAY FLUOROSCOPY, 03/07/2020, 01:52 PM. INDICATIONS:STENT REMOVAL, 7 IMAGES, 50.9 SEC FLUORO, 41.71 mGy FINDINGS:Left fluoroscopic support ureteric stent removal. No residual calcifications detected CONCLUSION:Left ureteric stent removal, fluoroscopic support. Dictated by: Phuong Menard MD on 03/20/2020 at 11:19 AM
[2020-03-20] MEDS ORDERED: ULTRAM PO ONE (11:40)
[2020-03-20] MEDS ORDERED: ULTRAM ONE (11:42)
== END 2020-03-20 12:10 | disposition home or self-care (01) ==
LOC: SURG 08:13
PROVIDERS: ATTEND Urology
DX: Z46.6 Encounter for fitting and adjustment of urinary device (principal); N20.0 Calculus of kidney; E66.01 Morbid (severe) obesity due to excess calories; E11.9 Type 2 diabetes mellitus without complications; M79.7 Fibromyalgia; J44.9 Chronic obstructive pulmonary disease, unspecified; Z88.0 Allergy status to penicillin; Z88.2 Allergy status to sulfonamides; Z88.6 Allergy status to analgesic agent; Z90.49 Acquired absence of other specified parts of digestive tract; Z88.8 Allergy status to other drugs, medicaments and biological substances; Z91.018 Allergy to other foods; Z98.890 Other specified postprocedural states; Z90.710 Acquired absence of both cervix and uterus; Z87.01 Personal history of pneumonia (recurrent); Z79.84 Long term (current) use of oral hypoglycemic drugs; Z79.899 Other long term (current) drug therapy
CPT/HCPCS: 52310; 82948 ×2; A4217 ×2; J1956; J2250; J3010; J7030; 76000; C1769; J3490

== ENCOUNTER 2020-03-20 14:18 | Emergency (ER) | payer MEDICARE ==
[~2020-03-20] VITALS: Ht 157.5 cm; Wt 106.6 kg
[~2020-03-20 14:18] MED LIST changes: +FLAVOXATE PO; -LACTATED RINGERS 1,000 ML IV SCH; -LEVAQUIN 100 ML IV ONE; -NS 1000ML 1,000 ML IV SCH; -NS 1000ML 1,000 ML ONE
[2020-03-20 15:22] VITALS: BP 171/96
--- NOTE | 2020-03-20 15:49 | ER.PDOC ---
General Chief Complaint: Flank Pain Stated Complaint: FEMALE Time seen by MD: 15:49 Source: patient Exam Limitations: no limitations History of Present Illness Initial Comments Patient present for left flank pain. She reports she had a staghorn calculus on that was treated with lithotripsy and stent. The stent was removed by Dr Conner this morning. She reports that she has had worsening pain since it was removed. Pain is 10/10. It is not improved with tramadol. SHe reports nausea and vomiting and hematuria. She called Dr Berry office and was told to come to the ER for pain control. No fever or chills Allergies: Coded Allergies: Penicillins (Verified Allergy, Severe, unknown, 03/24/16) "CONVULSIONS" aspirin (Verified Allergy, Severe, 03/24/16) "CONVULSIONS" cefamandole nafate (Verified Allergy, Severe, 03/24/16) iodine (Verified Allergy, Severe, Shortness of Breath, 03/24/16) quetiapine (Verified Allergy, Severe, "I GO CRAZY, OUT OF MY HEAD", 03/24/16) Cephalexin Monohydrate (Verified Allergy, Intermediate, Hives, 03/24/16) egg (Verified Allergy, Intermediate, Headache, 03/24/16) latex (Verified Allergy, Intermediate, HIVES, 03/24/16) hydrocodone bitartrate (Verified Allergy, Unknown, 03/24/16) phenazopyridine HCl (Verified Allergy, Unknown, 03/24/16) codeine (Verified Adverse Reaction, Mild, 03/24/16) "I GO CRAZY" Uncoded Allergies: SULFA (Allergy, Unknown, 07/26/13) Home Meds Active Scripts [Flavoxate] No Conflict Check, 100 MG PO TID for BLADDER SPASM, #30 Prov:KRISTINE CONNER MD 03/20/20 Doxycycline Hyclate (DOXYCYCLINE HYCLATE) 100 Mg Capsule, 100 MG PO BID, #20 CAP 0 Refills Prov:FERNANDEZ GIRON MD 03/08/20 Oxcarbazepine (OXCARBAZEPINE) 150 Mg Tablet, 300 MG PO DAILY for 30 Days, TAB Prov:ADAIR ROTH MD 03/10/19 Losartan Potassium (COZAAR) 50 Mg Tablet, 100 MG PO DAILY for 30 Days, #30 TAB Prov:ADAIR ROTH MD 03/10/19 Prednisone (PREDNISONE) 20 Mg Tablet, 40 MG PO DAILY24 for 30 Days Prov:ADAIR ROTH MD 02/02/19 Pantoprazole Sodium (PROTONIX) 40 Mg Tablet.dr, 40 MG PO DAILY for 30 Days, #30 Prov:ADAIR ROTH MD 02/02/19 Lancets (ACCU-CHEK) 1 Each Each, 1 EACH MC Q6 for 30 Days, #30 EACH Prov:ADAIR ROTH MD 09/09/18 Amlodipine Besylate (NORVASC) 5 Mg Tablet, 5 MG PO DAILY for 30 Days, TABLET Prov:ADAIR ROTH MD 09/09/18 Reported Medications Carvedilol 25MG (COREG 25MG) 25 Mg Tablet, 1 TAB PO BID, #60 TAB 5 Refills 01/31/19 Clonidine Hcl (CLONIDINE HCL) 0.2 Mg Tablet, 1 TAB PO HS, #30 TAB 2 Refills 01/30/19 Tramadol Hcl (TRAMADOL HCL) 50 Mg Tablet, 50 MG PO PRN PRN for PAIN, TABLET 01/30/19 Metformin Hcl (METFORMIN HCL) 500 Mg Tablet, 1 TAB PO BID, #60 TAB 3 Refills 01/30/19 Rosuvastatin 10MG (CRESTOR 10MG) 10 Mg Tablet, 1 TAB PO DAILY, #30 TAB 5 Refills 01/30/19 Duloxetine Hcl (CYMBALTA) 60 Mg Capsule.dr, 60 MG PO DAILY24 09/07/18 Fenofibrate (FENOFIBRATE) 160 Mg Tablet, 160 MG PO DAILY24, TABLET 09/07/18 Ondansetron (ZOFRAN ODT) 8 Mg Tab.rapdis, 8 MG PO DAILY24 for N/V, TAB 10/04/17 Dasatinib (SPRYCEL) 100 Mg Tablet, 90 MG PO DAILY24, TABLET 10/04/17 Potassium Citrate (POTASSIUM CITRATE) 10 Meq Tablet.er, 10 MEQ PO DAILY24 10/04/17 Bupropion Hcl (BUPROPION XL) 300 Mg Tab.er.24h, 300 MG PO DAILY24 10/04/17 Ondansetron (ZOFRAN ODT) 8 Mg Tab.rapdis, 8 MG PO DAILY24 for N/V, TAB 10/04/17 Dasatinib (SPRYCEL) 80 Mg Tablet, 90 MG PO DAILY24, TABLET 10/04/17 Albuterol Sulfate (VENTOLIN HFA) 18 Gm Hfa.aer.ad, 90 MCG IH Q6HR PRN for SHORTNESS OF BREATH 10/04/17 Allopurinol (ALLOPURINOL) 300 Mg Tablet, 1 TAB PO DAILY 10/04/17 Duloxetine Hcl (CYMBALTA) 60 Mg Capsule.dr, 60 MG PO DAILY 03/24/16 Tiotropium [place] (SPIRIVA) 18 Mcg Cap.w.dev, 1 CAP IH DAILY 12/13/15 Furosemide (LASIX) 20 Mg Tablet, 1 TAB PO DAILY 11/22/14 Tizanidine Hcl (TIZANIDINE HCL) 4 Mg Tablet, 1 TAB PO TID PRN for MUSCLE SPASM 11/22/14 Gabapentin (NEURONTIN) 300 Mg Capsule, 2 CAP PO TID 01/19/14 Alprazolam (XANAX) 2 Mg Tablet, 2 MG PO TID, TABLET 01/15/14 Linaclotide (LINZESS) 290 Mcg Capsule, 290 MCG PO DAILY, CAPSULE 01/15/14 Cholecalciferol (Vitamin D3) (VITAMIN D) 10,000 Unit Capsule, 06615 UNIT PO 3 TIMES A WEEK, CAPSULE 01/15/14 Levothyroxine Sodium (LEVOTHYROXINE SODIUM) 200 Mcg Tablet, 150 MCG PO DAILY, TABLET 08/11/13 Vital Signs First Vital Signs Date Time Temp Pulse Resp B/P (MAP) Pulse Ox O2 Delivery O2 Flow Rate FiO2 03/08/20 10:22 95 03/20/20 15:22 98.0 18 03/20/20 15:22 171/96 (121) 95 Room Air Last Vital Signs Date Time Temp Pulse Resp B/P (MAP) Pulse Ox O2 Delivery O2 Flow Rate FiO2 03/20/20 15: 98.0 105 20 95 03/20/20 15:22 171/96 (121) Room Air Past Medical History Medical History: cancer, coronary artery disease, cardiac problems, congestive heart failure, COPD, diabetes, hypertension, renal disease, other Surgical History: cholecystectomy, hysterectomy Social History Alcohol Use: none Drug Use: none Reviewed Nursing Reviewed: Vital Signs, Abn. Noted, Nursing Assessment Constitutional: no symptoms reported EENTM: no symptoms reported Respiratory: no symptoms reported Cardiovascular: no symptoms reported Gastrointestinal: see HPI Genitourinary: see HPI Musculoskeletal: no symptoms reported All Other Systems: Reviewed and Negative Physical Exam General Appearance: Mild Distress, Obese HEENT: PERRL/EOMI, Normal ENT Inspection Neck: Non-Tender, Supple Respiratory: lungs clear, no respiratory distress Cardiovascular: Normal Peripheral Pulses, Regular Rate, Rhythm Gastrointestinal: Normal Bowel Sounds, Soft (LUQ pain) Back: CVA Tenderness (L) Extremities: Non-Tender, Normal Inspection Neurologic/Psychiatric: No Motor/Sensory Deficits, Alert Skin: Normal Color Results/Orders Results/Orders Orders - LUISA GUTIERREZ MD Cbc With Auto Diff (03/20/20 15:56) Comprehensive Metabolic Panel (03/20/20 15:56) Urinalysis (03/20/20 15:56) Saline Lock (03/20/20 15:56) Ct Abd/Pelvis Wo Iv Contrast (03/20/20 15:56) Morphine Sulfate (Morphine Sulfate) (03/20/20 15:56) Ketorolac Tromethamine (Toradol) (03/20/20 15:56) Ondansetron Hcl/Pf (Zofran) (03/20/20 15:56) Ondansetron Hcl/Pf (Zofran) (03/20/20 16:28) Ketorolac Tromethamine (Toradol) (03/20/20 16:28) Morphine Sulfate (Morphine Sulfate) (03/20/20 16:28) Urine Culture (03/20/20 15:25) Levofloxacin 750mg/D5w 100ml (Levaquin) (03/20/20 18:00) Levofloxacin 750mg/D5w 100ml (Levaquin) (03/20/20 17:51) Vital Signs Date Time Temp Pulse Resp B/P (MAP) Pulse Ox O2 Delivery O2 Flow Rate FiO2 03/20/20 15: 98.0 105 20 95 03/20/20 15:22 98.0 105 18 171/96 (121) 95 Room Air 03/20/20 15:22 98.0 105 18 03/08/20 10:22 95 Administered Medications Medications (Trade) Dose Ordered Sig/Dyllan Route PRN Reason Start Time Stop Time Status Last Admin Dose Admin Ketorolac Tromethamine (Toradol) 15 mg STAT STAT IV 03/20/20 15:56 03/20/20 15:59 DC 03/20/20 16:36 15 MG Levofloxacin/ Dextrose 150 ml @ 100 mls/hr Q24HRS ONCE IV 03/20/20 18:00 03/20/20 19:29 03/20/20 18:11 100 MLS/HR Morphine Sulfate (Morphine Sulfate) 4 mg STAT STAT IV 03/20/20 15:56 03/20/20 15:59 DC 03/20/20 16:36 4 MG Ondansetron HCl (Zofran) 4 mg STAT STAT IV 03/20/20 15:56 03/20/20 15:59 DC 03/20/20 16:37 4 MG Laboratory Tests Test 03/20/20 15:25 03/20/20 16:09 Urine Collection Type VOID Urine Color RED (YELLOW) H Urine Appearance CLOUDY (CLEAR) H Urine Bilirubin MODERATE MG/DL (NEGATIVE) Urine Ictotest NEGATIVE (NEGATIVE) Urine Ketones TRACE (NEGATIVE) Urine Specific [place] 1.025 (1.005-1.035) Urine pH 5.5 (5.0-6.0) Urine Protein >=300 mg/dL (NEGATIVE) Urine Urobilinogen 1.0 (NEGATIVE) H Urine Nitrate POSITIVE (NEGATIVE) H Urine Leukocyte Esterase 25 /uL TRACE (NEGATIVE) Urine Blood LARGE (NEGATIVE) Urine RBC TNTC RBC/HPF (NONE SEEN) H Urine WBC TNTC WBC/HPF (0-2) H Urine Squamous Epithelial Cells FEW #/HPF (FEW) Urine Bacteria MANY (NONE SEEN) H Urine Glucose NORMAL (NEGATIVE) White Blood Count 8.3 10^3/uL (4.5-11.0) Red Blood Count 3.28 10^6/uL (4.00-5.20) L Hemoglobin 9.9 g/dL (12.0-15.0) L Hematocrit 31.0 % (36.0-46.0) L Mean Corpuscular Volume 94.5 fL (78-100) Mean Corpuscular Hemoglobin 30.2 pg (26-34) Mean Corpuscular Hemoglobin Concent 31.9 g/dL (33-36.5) L Red Cell Distribution Width 13.7 % (11.5-14.5) Platelet Count 173 10^3/uL (150-400) Mean Platelet Volume 9.5 fL (7.8-11.0) Neutrophils (%) (Auto) 72.1 % (41.0-85.0) Lymphocytes (%) (Auto) 16.3 % (24.0-44.0) L Monocytes (%) (Auto) 7.0 % (5.0-12.0) Neutrophils # (Auto) 6.0 10^3/uL (1.8-7.7) Lymphocytes # (Auto) 1.35 10^3/uL1 (1.0-4.8) Monocytes # (Auto) 0.6 10^3/uL (0.3-0.8) Absolute Immature Granulocyte (auto 0.01 10^3 u/L (0-2) Absolute Eosinophils (auto) 0.3 10^3/uL (0.0-0.2) H Immature Granulocytes % 0.10 % (0.00-0.50) Eosinophils % 4.1 % (0.0-5.0) Basophils % 0.4 % (0.0-0.2) H Basophils # 0.0 10^3/uL (0.0-0.1) Sodium Level 143 mmol/L (132-145) Potassium Level 3.8 mmol/L (3.6-5.2) Chloride Level 104.0 mmol/L (96-109) Carbon Dioxide Level 30.9 mmol/L (20.0-32) Anion Gap 11.9 Blood Urea Nitrogen 19 mg/dL (7-18) H Creatinine 1.31 mg/dL (0.59-1.40) Estimated GFR () 50.5 (>/=60) Est GFR (CKD-EPI)(Non-Afr [place]) 41.7 (>/=60) BUN/Creatinine Ratio 14.0 Glucose Level 140 mg/dL (70-110) H Calcium Level 8.9 mg/dL (8.4-10.5) Total Bilirubin 0.3 mg/dL (0.2-1.0) Aspartate Amino Transferase (AST) 13 U/L (0-35) Alanine Aminotransferase (ALT) 19 U/L (12-78) Alkaline Phosphatase 42 U/L (50-136) L Total Protein 6.3 g/dL (6.4-8.2) L Albumin 3.4 g/dL (3.4-5.0) Globulin 2.9 Albumin/Globulin Ratio 1.[address] Conner contacted. He states that this is not a urologic problem and if she needs to be admitted to call her primary Patient feels improved on repeat evaluation. CT revealed 2mm left ureter stone and UA was concerning for infection. She was given dose of levaquin for coverage. She was discussed with her PCP and admission for pain control was offered. The patient declines and would rather be discharged home and will see her PCP in clinic tomorrow morning at 9am. If she has any worsening of her sx she can return to the ER at any time. ER DEPART Departure Time of Disposition: 18:51 Disposition: 01 HOME, SELF-CARE Impression: Primary Impression: UTI (lower urinary tract infection) Additional Impressions: Left flank pain Calculus of ureter Condition: Improved Referrals: ORQUIDEA LANCASTER NP (PCP) PRIMARY CARE PROVIDER Comments levaquin 750mg daily for 10 days Duration or Time Spent with Pa: 30 Problem Qualifiers LUISA GUTIERREZ MD Mar 20, 2020 15:49
[2020-03-20] MEDS ORDERED: ZOFRAN IV STA (15:56)
[2020-03-20] MEDS ORDERED: MORPHINE SULFATE IV STA ×2 (15:56→18:47)
[2020-03-20] MEDS ORDERED: TORADOL IV STA (15:56)
[2020-03-20 16:24] LABS: BASOPHIL % 0.4 % (0.0-0.2); EOSINOPHIL # 0.3 10^3/uL (0.0-0.2); EOSINOPHIL % 4.1 % (0.0-5.0); LYMPHOCYTES # 1.35 10^3/uL1 (1.0-4.8); LYMPHOCYTES % 16.3 % (24.0-44.0); MEAN CORP HGB 30.2 pg (26-34); MONOCYTES # 0.6 10^3/uL (0.3-0.8); NEUTROPHILS % 72.1 % (41.0-85.0); PLATELET COUNT 173 10^3/uL (150-400); RED CELL DISTRIBUTION WIDTH 13.7 % (11.5-14.5)
[2020-03-20] MEDS ORDERED: MORPHINE SULFATE ONE ×2 (16:28→19:00)
[2020-03-20] MEDS ORDERED: TORADOL ONE (16:28)
[2020-03-20] MEDS ORDERED: ZOFRAN ONE (16:28)
[2020-03-20 16:47] LABS: CALCIUM 8.9 mg/dL (8.4-10.5); CARBON DIOXIDE 30.9 mmol/L (20.0-32)
[2020-03-20 16:47] LABS: APPEARANCE,URINE CLOUDY (CLEAR); BILIRUBIN,URINE MODERATE MG/DL (NEGATIVE); UA COLOR RED (YELLOW)
--- NOTE | 2020-03-20 17:14 | DIREP ---
PROCEDURE:CT ABD/PELVIS W/O TECHNIQUE:Axial cuts were obtained through the abdomen and pelvis without IV contrast. The images were viewed at lung and soft tissue settings. Sagittal and coronal reconstructions are provided. COMPARISON:[facility], CT, CT ABD/PELVIS W/O, 03/06/2020, 07:50 PM. INDICATIONS:left flank pain FINDINGS: LOWER CHEST:Increased left pleural thickening. LIVER:Normal. BILIARY:Previous cholecystectomy. PANCREAS:Normal. SPLEEN:Normal. URINARY TRACT:Left ureter is dilated throughout. This has increased from previous study. There is a 2.5 mm stone in the proximal left ureter series 2, image 67. There is left-sided hydronephrosis. Tiny 2 mm stone is present in the left renal collecting system series 2, image 57. There are 2 separate cortical stones in the lateral aspect of the left kidney measuring 4 mm and 2 mm respectively series 2 images 54 and 55. Scarring is present in the cortex of the left kidney in laterally and in the upper pole. Scarring is present in the right kidney with calcification in the area of the scar series 2, image 76. ADRENALS:Normal. AORTA/VASCULAR:Extensive arterial calcifications. RETROPERITONEUM:Normal. BOWEL/MESENTERY:Diverticulosis in the descending and sigmoid colon with no evidence of diverticulitis. The appendix is not clearly seen. ABDOMINAL WALL:Normal. PELVIS:Previous hysterectomy. BONES:Disc narrowing with vacuum changes L5-S1. OTHER:Calcified gluteal injection granulomas. CONCLUSION: 1. Left ureter is dilated throughout as compared to previous study. This may be sequela of a passed stone. There is a small nonobstructing stone in the proximal left ureter series 2, image 67. There remains left-sided hydronephrosis. Small 2 mm stone in the left renal collecting system. 2. Bilateral renal cortical calcifications and scarring. 3. Increased left pleural thickening. 4. Previous cholecystectomy and hysterectomy. 5. Atherosclerosis. Dictated by: Obi Cerrato M.D. on 03/20/2020 at 05:01 PM
[2020-03-20] MEDS ORDERED: LEVAQUIN 150 ML IV ONE ×2 (17:51→18:00)
--- NOTE | 2020-03-20 18:44 | NUR ---
DR.NGUYEN DR. GUTIERREZ ON THE PHONE WITH DR. GIRON REGARDING PATIENT CONDITION. DR. GUTIERREZ PLACED MACK ON HOLD TO SPEAK WITH PATIENT ON DISCHARGE VS. ADMISSION FOR PAIN CONTROL. PATIENT FEELS COMFORTABLE RECEIVING ONE MORE DOSE OF MORPHINE AND BEING DISCHARGED HOME.
[2020-03-20 18:48] VITALS: BP 143/74
[2020-03-20 19:05] VITALS: BP 142/79
== END 2020-03-20 19:18 | disposition home or self-care (01) ==
LOC: ER 14:18
DX: N39.0 Urinary tract infection, site not specified (principal); N20.2 Calculus of kidney with calculus of ureter; E11.9 Type 2 diabetes mellitus without complications; I11.0 Hypertensive heart disease with heart failure; I50.9 Heart failure, unspecified; I25.10 Atherosclerotic heart disease of native coronary artery without angina pectoris; J44.9 Chronic obstructive pulmonary disease, unspecified; Z79.52 Long term (current) use of systemic steroids; Z79.84 Long term (current) use of oral hypoglycemic drugs; Z79.899 Other long term (current) drug therapy; Z88.0 Allergy status to penicillin; Z88.2 Allergy status to sulfonamides; Z88.5 Allergy status to narcotic agent; Z88.6 Allergy status to analgesic agent; Z88.8 Allergy status to other drugs, medicaments and biological substances; Z90.49 Acquired absence of other specified parts of digestive tract; Z90.710 Acquired absence of both cervix and uterus
CPT/HCPCS: 36415; 74176; 80053; 81000; 85025; 87086; 96365; 96375; 96376; 99284; J1885; J1956; J2270 ×2; J2405

== ENCOUNTER → 2020-04-10 | Outpatient (CLI) | payer MEDICARE ==
[2020-04-10 11:25] LABS: BASOPHIL # 0.1 10^3/uL (0.0-0.1); BASOPHIL % 0.3 % (0.0-0.2); EOSINOPHIL # 0.5 10^3/uL (0.0-0.2); EOSINOPHIL % 2.2 % (0.0-5.0); LYMPHOCYTES # 1.48 10^3/uL1 (1.0-4.8); LYMPHOCYTES % 6.8 % (24.0-44.0); MEAN CORP HGB 28.7 pg (26-34); MONOCYTES # 0.9 10^3/uL (0.3-0.8); MONOCYTES % 4.3 % (5.0-12.0); NEUTROPHIL # 18.8 10^3/uL (1.8-7.7); NEUTROPHILS % 86.2 % (41.0-85.0); PLATELET COUNT 287 10^3/uL (150-400); RED CELL DISTRIBUTION WIDTH 13.9 % (11.5-14.5)
[2020-04-10 11:38] LABS: CALCIUM 11.4 mg/dL (8.4-10.5); CARBON DIOXIDE 32.7 mmol/L (20.0-32)
[2020-04-10 11:44] LABS: APPEARANCE,URINE CLEAR (CLEAR); BILIRUBIN,URINE NEGATIVE (NEGATIVE); UA COLOR YELLOW (YELLOW)
[2020-04-10 11:45] LABS: UROBILINOGEN,URINE NORMAL (NEGATIVE)
[2020-04-10 15:52] LABS: DIFFERENTIAL COMMENT NORMAL; EOSINOPHIL 2 % (1-4); LYMPHOCYTE 15 % (25-36); MONOCYTE 5 % (3-9); SEGMENTED NEUTROPHILS 78 % (31-76)
== END | disposition home or self-care (01) ==
LOC: LAB 11:03
PROVIDERS: ATTEND Pediatrics
DX: R53.83 Other fatigue (principal); N39.0 Urinary tract infection, site not specified; R53.81 Other malaise; A41.9 Sepsis, unspecified organism
CPT/HCPCS: 36415; 80048; 81000; 85025; 85651; 86140; 87086

== ENCOUNTER 2020-05-18 00:37 | Observation (INO) | payer MEDICARE ==
[~2020-05-18] VITALS: Ht 170.2 cm; Wt 99.8 kg
[2020-05-18] VITALS (11 sets, daily range): BP systolic 96–140; BP diastolic 41–81
--- NOTE | 2020-05-18 00:37 | NUR ---
ARRIVAL PT ARRIVED WITH C/O MIGRAINE AND KIDNEY PAIN. PT ESCORTED TO ER 8, AT BEDSIDE. ERP AT BEDSIDE DURING TRIAGE. PT C/O MIGRAINE X 4 DAYS, DIFFICULTY W/URINATION, BLOOD IN URINE, BURNING WITH URINATION, COUGHING UP BLOOD TINGED SPUTUM, FEVER, NAUSEA. VITALS OBTAINED & DOCUMENTED.
[2020-05-18] MEDS ORDERED: COMPAZINE IV STA (01:03)
[2020-05-18] MEDS ORDERED: BENADRYL IV STA (01:03)
--- NOTE | 2020-05-18 01:18 | ER.PDOC ---
General Chief Complaint: General Complaint Stated Complaint: MIGRAINE,R KIDNEY PAIN TRAVEL OUT OF US: No Time seen by MD: 00:58 Source: patient, family Exam Limitations: no limitations History of Present Illness Timing/Duration: other (4 days) Severity: severe Modifying Factors: improves with movement Associated Symptoms: chest pain, cough, fever/chills, headaches, nausea/vomiting Allergies: Coded Allergies: Penicillins (Verified Allergy, Severe, unknown, 03/24/16) "CONVULSIONS" aspirin (Verified Allergy, Severe, 03/24/16) "CONVULSIONS" cefamandole nafate (Verified Allergy, Severe, 03/24/16) iodine (Verified Allergy, Severe, Shortness of Breath, 03/24/16) quetiapine (Verified Allergy, Severe, "I GO CRAZY, OUT OF MY HEAD", 03/24/16) Cephalexin Monohydrate (Verified Allergy, Intermediate, Hives, 03/24/16) egg (Verified Allergy, Intermediate, Headache, 03/24/16) latex (Verified Allergy, Intermediate, HIVES, 03/24/16) hydrocodone bitartrate (Verified Allergy, Unknown, 03/24/16) phenazopyridine HCl (Verified Allergy, Unknown, 03/24/16) codeine (Verified Adverse Reaction, Mild, 03/24/16) "I GO CRAZY" Uncoded Allergies: SULFA (Allergy, Unknown, 07/26/13) Home Meds Active Scripts [Flavoxate] No Conflict Check, 100 MG PO TID for BLADDER SPASM, #30 Prov:KRISTINE CONNER MD 03/20/20 Oxcarbazepine (OXCARBAZEPINE) 150 Mg Tablet, 300 MG PO DAILY for 30 Days, TAB Prov:ADAIR ROTH MD 03/10/19 Losartan Potassium (COZAAR) 50 Mg Tablet, 100 MG PO DAILY for 30 Days, #30 TAB Prov:ADAIR ROTH MD 03/10/19 Prednisone (PREDNISONE) 20 Mg Tablet, 40 MG PO DAILY24 for 30 Days Prov:ADAIR ROTH MD 02/02/19 Pantoprazole Sodium (PROTONIX) 40 Mg Tablet.dr, 40 MG PO DAILY for 30 Days, #30 Prov:ADAIR ROTH MD 02/02/19 Lancets (ACCU-CHEK) 1 Each Each, 1 EACH MC Q6 for 30 Days, #30 EACH Prov:ADAIR ROTH MD 09/09/18 Amlodipine Besylate (NORVASC) 5 Mg Tablet, 5 MG PO DAILY for 30 Days, TABLET Prov:ADAIR ROTH MD 09/09/18 Reported Medications Carvedilol 25MG (COREG 25MG) 25 Mg Tablet, 1 TAB PO BID, #60 TAB 5 Refills 01/31/19 Tramadol Hcl (TRAMADOL HCL) 50 Mg Tablet, 50 MG PO PRN PRN for PAIN, TABLET 01/30/19 Metformin Hcl (METFORMIN HCL) 500 Mg Tablet, 1 TAB PO BID, #60 TAB 3 Refills 01/30/19 Rosuvastatin 10MG (CRESTOR 10MG) 10 Mg Tablet, 1 TAB PO DAILY, #30 TAB 5 Refills 01/30/19 Fenofibrate (FENOFIBRATE) 160 Mg Tablet, 160 MG PO DAILY24, TABLET 09/07/18 Potassium Citrate (POTASSIUM CITRATE) 10 Meq Tablet.er, 10 MEQ PO DAILY24 10/04/17 Bupropion Hcl (BUPROPION XL) 300 Mg Tab.er.24h, 300 MG PO DAILY24 10/04/17 Ondansetron (ZOFRAN ODT) 8 Mg Tab.rapdis, 8 MG PO DAILY24 for N/V, TAB 10/04/17 Albuterol Sulfate (VENTOLIN HFA) 18 Gm Hfa.aer.ad, 90 MCG IH Q6HR PRN for SHORTNESS OF BREATH 10/04/17 Allopurinol (ALLOPURINOL) 300 Mg Tablet, 1 TAB PO DAILY 10/04/17 Duloxetine Hcl (CYMBALTA) 60 Mg Capsule.dr, 60 MG PO DAILY 03/24/16 Tiotropium [place] (SPIRIVA) 18 Mcg Cap.w.dev, 1 CAP IH DAILY 12/13/15 Furosemide (LASIX) 20 Mg Tablet, 1 TAB PO DAILY 11/22/14 Tizanidine Hcl (TIZANIDINE HCL) 4 Mg Tablet, 1 TAB PO TID PRN for MUSCLE SPASM 11/22/14 Gabapentin (NEURONTIN) 300 Mg Capsule, 2 CAP PO TID 01/19/14 Alprazolam (XANAX) 2 Mg Tablet, 2 MG PO TID, TABLET 01/15/14 Linaclotide (LINZESS) 290 Mcg Capsule, 290 MCG PO DAILY, CAPSULE 01/15/14 Cholecalciferol (Vitamin D3) (VITAMIN D) 10,000 Unit Capsule, 94106 UNIT PO 3 TIMES A WEEK, CAPSULE 01/15/14 Levothyroxine Sodium (LEVOTHYROXINE SODIUM) 200 Mcg Tablet, 150 MCG PO DAILY, TABLET 08/11/13 Discontinued Reported Medications Clonidine Hcl (CLONIDINE HCL) 0.2 Mg Tablet, 1 TAB PO HS, #30 TAB 2 Refills 01/30/19 Dasatinib (SPRYCEL) 100 Mg Tablet, 90 MG PO DAILY24, TABLET 10/04/17 Dasatinib (SPRYCEL) 80 Mg Tablet, 90 MG PO DAILY24, TABLET 10/04/17 Past Medical History Medical History: cancer, COPD, hypertension Surgical History: appendectomy, cholecystectomy, hysterectomy, tonsillectomy Social History Alcohol Use: none Drug Use: none Results/Orders Results/Orders Orders - RADHA DIEZ MD Cbc With Auto Diff (05/18/20 01:03) Comprehensive Metabolic Panel (05/18/20 01:03) Lactic Acid(Ml) (05/18/20 01:03) Urinalysis (05/18/20 01:03) Blood Culture (05/18/20 01:03) Xr Chest 2v (05/18/20 01:03) Saline Lock (05/18/20 01:03) Troponin I (05/18/20 01:03) D-Dimer (05/18/20 01:03) Ekg-Routine (05/18/20 01:03) Prochlorperazine Edisylate (Compazine) (05/18/20 01:03) Diphenhydramine Hcl (Benadryl) (05/18/20 01:03) Cta Chest (05/18/20 02:14) Methylprednisolone Sod Succ (Solu-Medrol (05/18/20 02:14) Covid19 Antigen [place] (05/18/20 02:24) Methylprednisolone Sod Succ (Solu-Medrol (05/18/20 02:29) Influenza A&B (05/18/20 02:53) Enoxaparin Sodium (Lovenox) (05/18/20 03:37) Troponin I (05/18/20 03:39) Procalcitonin (05/18/20 03:51) Vital Signs Date Time Temp Pulse Resp B/P (MAP) Pulse Ox O2 Delivery O2 Flow Rate FiO2 05/18/20 03:17 65 18 99/42 (61) 100 Nasal [place] 2.00 05/18/20 02:00 71 18 103/81 (88) 100 Nasal [place] 2.00 05/18/20 01:45 92 18 101/41 (61) 99 Nasal [place] 2.00 05/18/20 01:00 98.2 104 18 140/61 (87) 96 Nasal [place] 2.00 05/18/20 01:00 98.2 104 18 05/18/20 01:00 98.2 104 18 96 Administered Medications Medications (Trade) Dose Ordered Sig/Dyllan Route PRN Reason Start Time Stop Time Status Last Admin Dose Admin Diphenhydramine HCl (Benadryl) 25 mg STAT STAT IV 05/18/20 01:03 05/18/20 01:04 UNV 05/18/20 01:29 25 MG Methylprednisolone Sodium Succinate (Solu-Medrol) 125 mg STAT STAT IV 05/18/20 02:14 05/18/20 02:20 DC 05/18/20 02:52 125 MG Prochlorperazine Edisylate (Compazine) 10 mg STAT STAT IV 05/18/20 01:03 05/18/20 01:04 UNV 05/18/20 01:30 10 MG Laboratory Tests Test 05/18/20 00:40 05/18/20 01:20 05/18/20 03:05 05/18/20 03:51 Urine Collection Type CCMS Urine Color YELLOW (YELLOW) Urine Appearance CLEAR (CLEAR) Urine Bilirubin NEGATIVE MG/DL (NEGATIVE) Urine Ketones NEGATIVE (NEGATIVE) Urine Specific [place] 1.015 (1.005-1.035) Urine pH 6.0 (5.0-6.0) Urine Protein NEGATIVE (NEGATIVE) Urine Urobilinogen NEGATIVE (NEGATIVE) Urine Nitrate NEGATIVE (NEGATIVE) Urine Leukocyte Esterase NEGATIVE (NEGATIVE) Urine Blood NEGATIVE (NEGATIVE) Urine Glucose NEGATIVE (NEGATIVE) White Blood Count 5.6 10^3/uL (4.5-11.0) Red Blood Count 2.92 10^6/uL (4.00-5.20) L Hemoglobin 8.9 g/dL (12.0-15.0) L Hematocrit 27.9 % (36.0-46.0) L Mean Corpuscular Volume 95.5 fL (78-100) Mean Corpuscular Hemoglobin 30.5 pg (26-34) Mean Corpuscular Hemoglobin Concent 31.9 g/dL (33-36.5) L Red Cell Distribution Width 15.9 % (11.5-14.5) H Platelet Count 203 10^3/uL (150-400) Mean Platelet Volume 9.3 fL (7.8-11.0) Neutrophils (%) (Auto) 71.3 % (41.0-85.0) Lymphocytes (%) (Auto) 19.8 % (24.0-44.0) L Monocytes (%) (Auto) 5.7 % (5.0-12.0) Neutrophils # (Auto) 4.0 10^3/uL (1.8-7.7) Lymphocytes # (Auto) 1.11 10^3/uL1 (1.0-4.8) Monocytes # (Auto) 0.3 10^3/uL (0.3-0.8) Absolute Immature Granulocyte (auto 0 10^3 u/L (0-2) Absolute Eosinophils (auto) 0.2 10^3/uL (0.0-0.2) Immature Granulocytes % 0.00 % (0.00-0.50) Eosinophils % 2.8 % (0.0-5.0) Basophils % 0.4 % (0.0-0.2) H Basophils # 0.0 10^3/uL (0.0-0.1) D-Dimer 1.20 mg/L (0.19-0.49) *H Sodium Level 142 mmol/L (132-145) Potassium Level 4.0 mmol/L (3.6-5.2) Chloride Level 105.0 mmol/L (96-109) Carbon Dioxide Level 30.7 mmol/L (20.0-32) Anion Gap 10.3 Blood Urea Nitrogen 13 mg/dL (7-18) Creatinine 1.40 mg/dL (0.59-1.40) Estimated GFR () 46.7 (>/=60) Est GFR (CKD-EPI)(Non-Afr [place]) 38.6 (>/=60) BUN/Creatinine Ratio 9.0 Glucose Level 175 mg/dL (70-110) H Lactic Acid Level 1.7 mmol/L (0.5-1.9) Calcium Level 8.6 mg/dL (8.4-10.5) Total Bilirubin 0.2 mg/dL (0.2-1.0) Aspartate Amino Transferase (AST) 15 U/L (0-35) Alanine Aminotransferase (ALT) 18 U/L (12-78) Alkaline Phosphatase 38 U/L (50-136) L Troponin I < 0.02 ng/mL (0.00-0.05) < 0.02 ng/mL (0.00-0.05) Total Protein 6.8 g/dL (6.4-8.2) Albumin 3.0 g/dL (3.4-5.0) L Globulin 3.8 Albumin/Globulin Ratio 0.789 Influenza Type A Antigen NEGATIVE (NEG) Influenza B Immunofluorescence NEGATIVE (NEG) SARS-CoV-2 Antigen (Rapid) NEGATIVE (NEGATIVE) ER DEPART Departure Time of Disposition: 03:50 Disposition: 09 ADMITTED INPATIENT Impression: Primary Impression: Pulmonary embolism Additional Impressions: Fever Chest pain Migraine Condition: Stable If Transfer, List PT Destinati: [address] Ravi Referrals: FERNANDEZ GIRON MD (PCP) PRIMARY CARE PROVIDER Duration or Time Spent with Pa: 40 minutes Problem Qualifiers Primary Impression: Pulmonary embolism Pulmonary embolism type: unspecified Chronicity: acute Acute cor pulmonale presence: unspecified Qualified Codes: I26.99 - Other pulmonary embolism without acute cor pulmonale Additional Impressions: Fever Fever type: unspecified Qualified Codes: R50.9 - Fever, unspecified Chest pain Chest pain type: unspecified Qualified Codes: R07.9 - Chest pain, unspecified Migraine Migraine type: unspecified Status migrainosus presence: without status migrainosus Intractability: not intractable Qualified Codes: G43.909 - Migraine, unspecified, not intractable, without status migrainosus RADHA DIEZ MD May 18, 2020 01:18
--- NOTE | 2020-05-18 01:22 | ER.PDOC ---
General Chief Complaint: General Complaint Stated Complaint: MIGRAINE,R KIDNEY PAIN TRAVEL OUT OF US: No Time seen by MD: 00:58 Source: patient, family Exam Limitations: no limitations History of Present Illness Initial Comments Patient is a 59-year-old woman who presents with a chief complaint of migraine headache for the past 4 days. Patient reports she has a migraine headache that started behind her right eye and has been constant, nonradiating, unrelieved with Percogesic that she takes at home. Patient states she has a history of migraines and is similar to her previous migraines. She denies any trauma. She denies blurry vision or double vision. Patient denies any difficulty with speech or swallowing. Patient denies any focal numbness or weakness of the arms or legs. Patient states she has a temperature of 101 at home. Patient reports cough productive of bloody and brown sputum. Patient reports pain over the left lateral aspect of her ribs that is sharp, localized, worse when she coughs. She denies any other chest pain. She denies feeling short of breath. She denies any nasal congestion or sore throat. She states she has had nausea with some vomiting. No diarrhea.She denies any black or bloody stools. Patient reports dysuria, frequency, hematuria. Patient denies any flank pain. Patient states she has had a complete hysterectomy. Patient states she was diagnosed with "yeast infection" in her bloodstream and she states she was transferred to [facility] for treatment at that time. 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 Patient states she cannot take the flu shot because she is allergic to it. Patient states she has not gotten the Covid vaccine. Timing/Duration: getting worse Severity: moderate Modifying Factors: improves with movement Associated Symptoms: chest pain, cough, fever/chills, headaches, nausea/vomiting Allergies: Coded Allergies: Penicillins (Verified Allergy, Severe, unknown, 03/24/16) "CONVULSIONS" aspirin (Verified Allergy, Severe, 03/24/16) "CONVULSIONS" cefamandole nafate (Verified Allergy, Severe, 03/24/16) iodine (Verified Allergy, Severe, Shortness of Breath, 03/24/16) quetiapine (Verified Allergy, Severe, "I GO CRAZY, OUT OF MY HEAD", 03/24/16) Cephalexin Monohydrate (Verified Allergy, Intermediate, Hives, 03/24/16) egg (Verified Allergy, Intermediate, Headache, 03/24/16) latex (Verified Allergy, Intermediate, HIVES, 03/24/16) hydrocodone bitartrate (Verified Allergy, Unknown, 03/24/16) phenazopyridine HCl (Verified Allergy, Unknown, 03/24/16) codeine (Verified Adverse Reaction, Mild, 03/24/16) "I GO CRAZY" Uncoded Allergies: SULFA (Allergy, Unknown, 07/26/13) Home Meds Active Scripts [Flavoxate] No Conflict Check, 100 MG PO TID for BLADDER SPASM, #30 Prov:KRISTINE CONNER MD 03/20/20 Oxcarbazepine (OXCARBAZEPINE) 150 Mg Tablet, 300 MG PO DAILY for 30 Days, TAB Prov:ADAIR ROTH MD 03/10/19 Losartan Potassium (COZAAR) 50 Mg Tablet, 100 MG PO DAILY for 30 Days, #30 TAB Prov:ADAIR ROTH MD 03/10/19 Prednisone (PREDNISONE) 20 Mg Tablet, 40 MG PO DAILY24 for 30 Days Prov:ADAIR ROTH MD 02/02/19 Pantoprazole Sodium (PROTONIX) 40 Mg Tablet.dr, 40 MG PO DAILY for 30 Days, #30 Prov:ADAIR ROTH MD 02/02/19 Lancets (ACCU-CHEK) 1 Each Each, 1 EACH MC Q6 for 30 Days, #30 EACH Prov:ADAIR ROTH MD 09/09/18 Amlodipine Besylate (NORVASC) 5 Mg Tablet, 5 MG PO DAILY for 30 Days, TABLET Prov:ADAIR ROTH MD 09/09/18 Reported Medications Carvedilol 25MG (COREG 25MG) 25 Mg Tablet, 1 TAB PO BID, #60 TAB 5 Refills 01/31/19 Tramadol Hcl (TRAMADOL HCL) 50 Mg Tablet, 50 MG PO PRN PRN for PAIN, TABLET 01/30/19 Metformin Hcl (METFORMIN HCL) 500 Mg Tablet, 1 TAB PO BID, #60 TAB 3 Refills 01/30/19 Rosuvastatin 10MG (CRESTOR 10MG) 10 Mg Tablet, 1 TAB PO DAILY, #30 TAB 5 Refills 01/30/19 Fenofibrate (FENOFIBRATE) 160 Mg Tablet, 160 MG PO DAILY24, TABLET 09/07/18 Potassium Citrate (POTASSIUM CITRATE) 10 Meq Tablet.er, 10 MEQ PO DAILY24 10/04/17 Bupropion Hcl (BUPROPION XL) 300 Mg Tab.er.24h, 300 MG PO DAILY24 10/04/17 Ondansetron (ZOFRAN ODT) 8 Mg Tab.rapdis, 8 MG PO DAILY24 for N/V, TAB 10/04/17 Albuterol Sulfate (VENTOLIN HFA) 18 Gm Hfa.aer.ad, 90 MCG IH Q6HR PRN for SHORTNESS OF BREATH 10/04/17 Allopurinol (ALLOPURINOL) 300 Mg Tablet, 1 TAB PO DAILY 10/04/17 Duloxetine Hcl (CYMBALTA) 60 Mg Capsule.dr, 60 MG PO DAILY 03/24/16 Tiotropium Willis (SPIRIVA) 18 Mcg Cap.w.dev, 1 CAP IH DAILY 12/13/15 Furosemide (LASIX) 20 Mg Tablet, 1 TAB PO DAILY 11/22/14 Tizanidine Hcl (TIZANIDINE HCL) 4 Mg Tablet, 1 TAB PO TID PRN for MUSCLE SPASM 11/22/14 Gabapentin (NEURONTIN) 300 Mg Capsule, 2 CAP PO TID 01/19/14 Alprazolam (XANAX) 2 Mg Tablet, 2 MG PO TID, TABLET 01/15/14 Linaclotide (LINZESS) 290 Mcg Capsule, 290 MCG PO DAILY, CAPSULE 01/15/14 Cholecalciferol (Vitamin D3) (VITAMIN D) 10,000 Unit Capsule, 63516 UNIT PO 3 TIMES A WEEK, CAPSULE 01/15/14 Levothyroxine Sodium (LEVOTHYROXINE SODIUM) 200 Mcg Tablet, 150 MCG PO DAILY, TABLET 08/11/13 Discontinued Reported Medications Clonidine Hcl (CLONIDINE HCL) 0.2 Mg Tablet, 1 TAB PO HS, #30 TAB 2 Refills 01/30/19 Dasatinib (SPRYCEL) 100 Mg Tablet, 90 MG PO DAILY24, TABLET 10/04/17 Dasatinib (SPRYCEL) 80 Mg Tablet, 90 MG PO DAILY24, TABLET 10/04/17 Past Medical History Medical History: cancer, COPD, fibromyalgia, high cholesterol, hypertension, thyroid disease Surgical History: appendectomy, cholecystectomy, hysterectomy, tonsillectomy LMP (females 10-50): hysterectomy Family History Significant Family History: other (Migraines in her father) Social History Smoking: non-smoker Alcohol Use: none Drug Use: none Review of Systems Constitutional: chills, fever, weakness EENTM: denies blurred vision, denies double vision, denies nose congestion, denies throat pain Respiratory: cough; denies shortness of breath Cardiovascular: chest pain Gastrointestinal: denies abdominal pain, denies diarrhea; nausea; denies vomiting Genitourinary: dysuria, frequency, hematuria Musculoskeletal: denies back pain, denies neck pain Skin: denies rash Psychiatric/Neurological: headache; denies numbness, denies paresthesia, denies weakness Hematologic/Lymphatic: denies easy bleeding All Other Systems: Reviewed and Negative Physical Exam General Appearance: No Apparent Distress, WD/WN, Obese EENT: eyes nml inspection, nml ENT inspection Neck: Non-Tender, Full Range of Motion, Supple, Normal Inspection Respiratory: chest non-tender, no respiratory distress, no accessory muscle use, crackles (Left base) CVS: reg rate & rhythm, no murmur, no gallop, pulses nml, nml capillary refill Gastrointestinal: Normal Bowel Sounds, No Organomegaly, Non Tender Back: Normal Inspection, No CVA Tenderness, No Vertebral Tenderness Extremities: Normal Range of Motion, Non-Tender, Normal Inspection, No Pedal Edema, No Calf Tenderness, Normal Capillary Refill 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, No Motor/Sensory Deficits, Alert, Normal Mood/Affect, Oriented x 3 Skin: Normal Color, Warm/Dry Results/Orders Results/Orders Orders - RADHA DIEZ MD Cbc With Auto Diff (05/18/20 01:03) Comprehensive Metabolic Panel (05/18/20 01:03) Lactic Acid(Ml) (05/18/20 01:03) Urinalysis (05/18/20 01:03) Blood Culture (05/18/20 01:03) Xr Chest 2v (05/18/20 01:03) Saline Lock (05/18/20 01:03) Troponin I (05/18/20 01:03) D-Dimer (05/18/20 01:03) Ekg-Routine (05/18/20 01:03) Prochlorperazine Edisylate (Compazine) (05/18/20 01:03) Diphenhydramine Hcl (Benadryl) (05/18/20 01:03) Cta Chest (05/18/20 02:14) Methylprednisolone Sod Succ (Solu-Medrol (05/18/20 02:14) Covid19 Antigen Shana Ana (05/18/20 02:24) Methylprednisolone Sod Succ (Solu-Medrol (05/18/20 02:29) Influenza A&B (05/18/20 02:53) Enoxaparin Sodium (Lovenox) (05/18/20 03:37) Troponin I (05/18/20 03:39) Procalcitonin (05/18/20 03:51) Vital Signs Date Time Temp Pulse Resp B/P (MAP) Pulse Ox O2 Delivery O2 Flow Rate FiO2 05/18/20 03:17 65 18 99/42 (61) 100 Nasal [place] 2.00 05/18/20 02:00 71 18 103/81 (88) 100 Nasal Canula 2.00 05/18/20 01:45 92 18 101/41 (61) 99 Nasal Canula 2.00 05/18/20 01:00 98.2 104 18 140/61 (87) 96 Nasal Canula 2.00 05/18/20 01:00 98.2 104 18 05/18/20 01:00 98.2 104 18 96 Administered Medications Medications (Trade) Dose Ordered Sig/Dyllan Route PRN Reason Start Time Stop Time Status Last Admin Dose Admin Diphenhydramine HCl (Benadryl) 25 mg STAT STAT IV 05/18/20 01:03 05/18/20 01:04 UNV 05/18/20 01:29 25 MG Methylprednisolone Sodium Succinate (Solu-Medrol) 125 mg STAT STAT IV 05/18/20 02:14 05/18/20 02:20 DC 05/18/20 02:52 125 MG Prochlorperazine Edisylate (Compazine) 10 mg STAT STAT IV 05/18/20 01:03 05/18/20 01:04 UNV 05/18/20 01:30 10 MG Laboratory Tests Test 05/18/20 00:40 05/18/20 01:20 05/18/20 03:05 05/18/20 03:51 Urine Collection Type CCMS Urine Color YELLOW (YELLOW) Urine Appearance CLEAR (CLEAR) Urine Bilirubin NEGATIVE MG/DL (NEGATIVE) Urine Ketones NEGATIVE (NEGATIVE) Urine Specific [place] 1.015 (1.005-1.035) Urine pH 6.0 (5.0-6.0) Urine Protein NEGATIVE (NEGATIVE) Urine Urobilinogen NEGATIVE (NEGATIVE) Urine Nitrate NEGATIVE (NEGATIVE) Urine Leukocyte Esterase NEGATIVE (NEGATIVE) Urine Blood NEGATIVE (NEGATIVE) Urine Glucose NEGATIVE (NEGATIVE) White Blood Count 5.6 10^3/uL (4.5-11.0) Red Blood Count 2.92 10^6/uL (4.00-5.20) L Hemoglobin 8.9 g/dL (12.0-15.0) L Hematocrit 27.9 % (36.0-46.0) L Mean Corpuscular Volume 95.5 fL (78-100) Mean Corpuscular Hemoglobin 30.5 pg (26-34) Mean Corpuscular Hemoglobin Concent 31.9 g/dL (33-36.5) L Red Cell Distribution Width 15.9 % (11.5-14.5) H Platelet Count 203 10^3/uL (150-400) Mean Platelet Volume 9.3 fL (7.8-11.0) Neutrophils (%) (Auto) 71.3 % (41.0-85.0) Lymphocytes (%) (Auto) 19.8 % (24.0-44.0) L Monocytes (%) (Auto) 5.7 % (5.0-12.0) Neutrophils # (Auto) 4.0 10^3/uL (1.8-7.7) Lymphocytes # (Auto) 1.11 10^3/uL1 (1.0-4.8) Monocytes # (Auto) 0.3 10^3/uL (0.3-0.8) Absolute Immature Granulocyte (auto 0 10^3 u/L (0-2) Absolute Eosinophils (auto) 0.2 10^3/uL (0.0-0.2) Immature Granulocytes % 0.00 % (0.00-0.50) Eosinophils % 2.8 % (0.0-5.0) Basophils % 0.4 % (0.0-0.2) H Basophils # 0.0 10^3/uL (0.0-0.1) D-Dimer 1.20 mg/L (0.19-0.49) *H Sodium Level 142 mmol/L (132-145) Potassium Level 4.0 mmol/L (3.6-5.2) Chloride Level 105.0 mmol/L (96-109) Carbon Dioxide Level 30.7 mmol/L (20.0-32) Anion Gap 10.3 Blood Urea Nitrogen 13 mg/dL (7-18) Creatinine 1.40 mg/dL (0.59-1.40) Estimated GFR () 46.7 (>/=60) Est GFR (CKD-EPI)(Non-Afr [place]) 38.6 (>/=60) BUN/Creatinine Ratio 9.0 Glucose Level 175 mg/dL (70-110) H Lactic Acid Level 1.7 mmol/L (0.5-1.9) Calcium Level 8.6 mg/dL (8.4-10.5) Total Bilirubin 0.2 mg/dL (0.2-1.0) Aspartate Amino Transferase (AST) 15 U/L (0-35) Alanine Aminotransferase (ALT) 18 U/L (12-78) Alkaline Phosphatase 38 U/L (50-136) L Troponin I < 0.02 ng/mL (0.00-0.05) < 0.02 ng/mL (0.00-0.05) Total Protein 6.8 g/dL (6.4-8.2) Albumin 3.0 g/dL (3.4-5.0) L Globulin 3.8 Albumin/Globulin Ratio 0.789 Influenza Type A Antigen NEGATIVE (NEG) Influenza B Immunofluorescence NEGATIVE (NEG) SARS-CoV-2 Antigen (Rapid) NEGATIVE (NEGATIVE) Progress Progress Patient had an EKG done which shows sinus rhythm, incomplete right Bundle branch block with T wave inversions in V1 through V4. This EKG is unchanged compared to an EKG that was done in March 21, 2020. Patient's initial troponin was negative. Patient's initial lactic acid was negative at 1.7. Patient had a CBC that shows normal white count of 5.6 with normal differential. Patient's hemoglobin was 8.9 with hematocrit 27.9 which is actually improved compared to previously. Her platelet count was normal. Patient CMP was unremarkable other than a glucose of 175. Patient's D-dimer was elevated at 1.2. Patient had a chest x-ray that shows questionable left lower lobe infiltrate with no other acute findings per the radiologist. I did review the patient's chest x-ray images.Patient is UA was negative. Patient had Covid and flu that were both negative. Patient received Compazine 10 mg IV and Benadryl 25 mg IV with improvement in her headache. Due to the patient's chest pain, elevated D-dimer, history of chronic leukemia concerning for pulmonary embolism patient underwent CTA of her chest. Patient has reported dye allergy and was given Solu-Medrol 125 mg IV in addition to the Benadryl she had already received. Patient had her CTA and tolerated the procedure well without difficulties. CTA of the chest shows a right lower lobe pulmonary embolism with moderate size left pleural effusion. No other acute changes per the radiologist. Due to the patient's pulmonary embolism she was given Lovenox 1 mg/kg subcu. Patient's Covid and flu were both negative. Impression patient has pulmonary embolism, fever, chest pain, and will need to be admitted for further evaluation and treatment. At [address] Guy Serna who is the hospitalist on-call the day who agrees to accept patient for admission. I have placed the admission order and the patient will be admitted to the floor for further evaluation and treatment. EKG/XRAY/CT/US EKG: NSR, RBBB, nonspecific ST T wave chg, unchanged from (March 21, 2020) ER DEPART Departure Time of Disposition: 03:59 Disposition: 09 ADMITTED INPATIENT Impression: Primary Impression: Pulmonary embolism Additional Impressions: Chest pain Fever Migraine headache Condition: Stable Referrals: FERNANDEZ GIRON MD (PCP) PRIMARY CARE PROVIDER TARI NAVARRETE MD Additional Instructions: Stable Comments At [address] Navarrete, the hospitalist, who agrees to accept patient for admission. Duration or Time Spent with Pa: 40 minutes Return to Work/School Can a patient return to work?: No Can a patient return to school: No Problem Qualifiers Primary Impression: Pulmonary embolism Pulmonary embolism type: single subsegmental (without acute cor pulmonale) Qualified Codes: I26.93 - Single subsegmental pulmonary embolism without acute cor pulmonale Additional Impressions: Chest pain Chest pain type: unspecified Qualified Codes: R07.9 - Chest pain, unspecified Fever Fever type: unspecified Qualified Codes: R50.9 - Fever, unspecified Migraine headache Migraine type: unspecified Status migrainosus presence: without status migrainosus Intractability: not intractable Qualified Codes: G43.909 - Migraine, unspecified, not intractable, without status migrainosus RADHA DIEZ MD May 18, 2020 01:22
--- NOTE | 2020-05-18 01:23 | NUR ---
20 GA L LATERAL UPPER ARM X 1 ATTEMPT. BLOOD CULTURES X 2 DRAWN. PT FAVIAN WELL. IV POSITIONAL, + BLOOD RETURN, FLUSHED WITH 10 ML'S NS.
--- NOTE | 2020-05-18 01:30 | NUR ---
MEDS GIVEN IV, IV FLUSHED WITH 10 ML'S NS/LOCKED. PT TRANSFERED TO RADIOLOGY FOR CHEST XRAY VIA STRETCHER.
[2020-05-18 01:34] LABS: BASOPHIL % 0.4 % (0.0-0.2); EOSINOPHIL # 0.2 10^3/uL (0.0-0.2); EOSINOPHIL % 2.8 % (0.0-5.0); LYMPHOCYTES # 1.11 10^3/uL1 (1.0-4.8); LYMPHOCYTES % 19.8 % (24.0-44.0); MEAN CORP HGB 30.5 pg (26-34); MONOCYTES # 0.3 10^3/uL (0.3-0.8); MONOCYTES % 5.7 % (5.0-12.0); NEUTROPHILS % 71.3 % (41.0-85.0); PLATELET COUNT 203 10^3/uL (150-400); RED CELL DISTRIBUTION WIDTH 15.9 % (11.5-14.5)
--- NOTE | 2020-05-18 01:39 | NUR ---
PT BACK FROM RADIOLOGY. RT CALLED FOR EKG.
[2020-05-18 01:45] LABS: BILIRUBIN,URINE NEGATIVE (NEGATIVE); UA COLOR YELLOW (YELLOW)
[2020-05-18 01:46] LABS: UROBILINOGEN,URINE NEGATIVE (NEGATIVE)
[2020-05-18 01:51] LABS: ALANINE AMINOTRANSFERASE(ML) 18 U/L (12-78); ALKALINE PHOSPHATASE 38 U/L (50-136); ASPARTATE AMINO TRANSFERASE 15 U/L (0-35); CALCIUM 8.6 mg/dL (8.4-10.5); CARBON DIOXIDE 30.7 mmol/L (20.0-32); GLUCOSE 175 mg/dL (70-110)
--- NOTE | 2020-05-18 01:51 | NUR ---
LAB CALLED TO REPORT DDIMER 1.20, REPORTED TO ERP.
--- NOTE | 2020-05-18 01:58 | PCM.EKG ---
[facility] Test Date: 2020-05-18 Test Time: 01:55:57 Pat Name: MICHAEL HERRERA Department: Room: Gender: F Nailer Hand: ED : 1960 Requested By: RADHA DIEZ Order Number: [id number] Reading MD: Measurements Intervals [place] Rate: 69 P: 55 NM: 163 QRS: 30 QRSD: 114 T: -6 QT: 446 QTc: 478 Interpretive Statements Sinus rhythm Incomplete right bundle branch block Compared to ECG 03/23/2020 05:26:38 Incomplete right bundle-branch block now present Sinus tachycardia no longer present Please click the below link to view image of tracing.
--- NOTE | 2020-05-18 01:58 | DIREP ---
PROCEDURE:CHEST 2 VIEWS COMPARISON:[facility], CT, CT ABD/PELVIS W/O, 03/22/2020, 09:02 PM. [facility], CR, XRAY CHEST 2 VWS, 03/06/2020, 07:46 PM. [facility], CR, XRAY CHEST 2 VWS, 01/04/2020, 06:39 AM. INDICATIONS:cough FINDINGS: LUNGS/PLEURA:Obscuration of the left hemidiaphragm concerning for left basilar infiltrate, pneumonia. Additional streaky opacities in the right lung base are minimally more prominent with comparison to prior and may represent atelectasis or additional infiltrate. No pneumothorax. VASCULATURE:Unremarkable pulmonary vasculature. CARDIAC:Mild cardiomegaly. MEDIASTINUM:No visible mass or adenopathy. BONES:No fracture or visible bony lesion. OTHER:The patient's arm overlies the chest on lateral view which may exaggerate cardiac size assessment and basilar opacity. CONCLUSION: 1. Obscuration of the left hemidiaphragm concerning for left basilar infiltrate, pneumonia. 2. Mild cardiomegaly. 3. Additional streaky opacities in the right lung base, as above. Dictated by: Mckayla Alvarez MD on 05/18/2020 at 01:54 AM
[2020-05-18] MEDS ORDERED: SOLU-MEDROL IV STA (02:14)
[2020-05-18] MEDS ORDERED: SOLU-MEDROL ONE (02:29)
--- NOTE | 2020-05-18 03:03 | NUR ---
PT TO CT SCAN, 20 GA R AC DISLODGED, PT SWEATING. 20 GA L AC INITIATED. SECURED WITH COBAN.
--- NOTE | 2020-05-18 03:11 | NUR ---
FLU AND COVID SWAB OBTAINED. PT SNORED THRU PROCEDURE. NAD NOTED.
--- NOTE | 2020-05-18 03:21 | NUR ---
REPROTED BP TO ERP, REPOSITIONED PT, RE-CHECK BP
--- NOTE | 2020-05-18 03:35 | DIREP ---
PROCEDURE:CTA CHEST COMPARISON:[facility], CT, CT CHEST W/O, 02/16/2020, 01:59 PM. [facility], CR, XRAY CHEST 2 VWS, 05/18/2020, 01:08 AM. INDICATIONS:chest pain TECHNIQUE:Post contrast axial images through the chest with multiplanar MIP/3D reconstructions. FINDINGS: PULMONARY ARTERIES:Although there are artifacts in the right lower lobe related respiratory motion there is at least 1 filling defects suspicious for pulmonary embolism the segmental artery to the right LUNGS:Ground-glass opacity throughout the left lower lobe may represent passive atelectasis or infiltrate. There is also dependent ground-glass throughout the lungs. PLEURA:Small left pleural fluid, increased with comparison to prior. CARDIAC:Mild cardiomegaly. RV:LV ratio (norm <0.9): Normal. THORACIC AORTA:Normal. MEDIASTINUM:Normal. THYROID:Normal. BONES:Healed right-sided rib fractures. Subtle increased density in the minutes sternum measuring approximately 1 cm may be related to previous trauma, small osseous bone lesion not excluded, unchanged. OTHER:Fluid within esophagus seen to the thoracic inlet may suggest reflux. CONCLUSION: 1. Findings concerning for pulmonary embolism in the right lower lobe. 2. Increased small left pleural fluid. 3. Mild cardiomegaly. 4. Ground-glass opacity in the left lower lobe adjacent to the pleural fluid may represent passive atelectasis or early infiltrate. There is also dependent atelectasis elsewhere. This report was called by telephone at 3:31 am on May 18, [address] Nanette Sibley . Dictated by: Mckayla Alvarez MD on 05/18/2020 at 03:19 AM
[2020-05-18] MEDS ORDERED: LOVENOX SQ STA (03:37)
--- NOTE | 2020-05-18 04:35 | NUR ---
ADMIT Addendum: 05/18/20 at 0442 by KALYAN ADMIT T ADMITTED TO SERVICES OF DR. MCMAHON ROOM [id number] DX: RIGHT LOWER LOBE PE. REPORT CALLED TO CLAUDIA AT 4:13 AM. PT TRANSPORTED TO [facility] VIA STRETCHER WITH O2 VIA NC 2 L. PT FAVIAN TRANSFER WELL.
--- NOTE | 2020-05-18 06:34 | PCM.HP ---
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 She does have recurrent nephrolithiasis carries a diagnosis of chronic pyelonephritis. 2 months ago she had come to our hospital she was found to have candidemia thought to be secondary to nephrolithiasis so she had to be transferred to a higher level care. For the past 5 days she has had more or less constant headache which is reminiscent of her migraine attacks, this is associated with photophobia and phonophobia. This is a not been associated with any weakness or numbness in any extremity. She has had some nausea but no vomiting. She had been taking Percogesic at home without much relief She's been running a temperature under 1.8 was reported home the past few days. She's been coughing up blood and brown colored sputum been complaining of left lower rib cage pain which worsens when she coughs. She denies any shortness of breath of her normal. She is able to ambulate in her house with her oxygen and do her daily chores without any dyspnea. She denies any sick contacts. She has not been vaccinated for covid 19 or the flu. Course in the emergency room: She was afebrile and her sats were 99% on 2 L urinalysis checked out to be fine d-dimer is only 1.2 negative for influenza and SARS CoV-2 , EKG reviewed by me showed sinus rhythm, incomplete right bundle aviva block with T-wave inversions in V1 to V4 which were unchanged from an EKG done 2 months ago. Patient's initial lactic acid level was negative and normal white blood cell count was 27.9, chest x-ray showed possible left lower lobe infiltrate CT of the chest was done with with the patient being premedicated with Benadryl and Solu-Medrol because of possible dye allergy showed the patient had a right lower lobe pulmonary embolism which was of moderate size and a moderate-sized left pleural effusion. Patient has received 1 dose of Lovenox and has been admitted to the hospitalist service. Of note patient reports that she had an episode of severe hemoptysis because of an issue with her platelets while she was on Sprycel treatment for CML. That ti me she had to be intubated and was on that for a few days. she is now on Gleevac. Also over the past few weeks she has noticed some coughing up brown colored phlegm. She does have a commercial print salesman in [facility] of the name Dr Sweeney and structures engineer Dr Ernst Mills. Past Medical History Hx Last Menstrual Period: hysteretomy total Past Surgical History: (1) Hypothyroidism ICD Code: E03.9 - Hypothyroidism, unspecified SNOMED: 93605583 (2) Diabetes mellitus type 2 in obese ICD Code: E11.69 - Type 2 diabetes mellitus with other specified complication; E66.9 - Obesity, unspecified SNOMED: 62013530 (3) Gout ICD Code: M10.9 - Gout, unspecified SNOMED: 63637669 (4) Depression ICD Code: F32.9 - Major depressive disorder, single episode, unspecified SNOMED: 90189664 (5) Anxiety ICD Code: F41.9 - Anxiety disorder, unspecified SNOMED: 61368106 (6) IBS (irritable bowel syndrome) ICD Code: K58.9 - Irritable bowel syndrome without diarrhea SNOMED: 89973902 (7) History of IBS ICD Code: Z87.19 - Personal history of other diseases of the digestive system SNOMED: 92553564808615 (8) CML in remission ICD Code: C92.11 - Chronic myeloid leukemia, BCR/ABL-positive, in remission SNOMED: 12784331 (9) ERICH on CPAP Status: Chronic ICD Code: G47.33 - Obstructive sleep apnea (adult) (pediatric); Z99.89 - Dependence on other enabling machines and devices SNOMED: 69731291, 903262161 (10) Chronic hypoxemic respiratory failure Status: Chronic ICD Code: J96.11 - Chronic respiratory failure with hypoxia SNOMED: 241624760 (11) Gouty arthritis Status: Acute ICD Code: M10.9 - Gout, unspecified SNOMED: 47376483 (12) Sciatica Status: Acute ICD Code: M54.30 - Sciatica, unspecified side SNOMED: 65514970 (13) Bilateral kidney stones Status: Acute ICD Code: N20.0 - Calculus of kidney SNOMED: 57465872 (14) Knee pain, chronic Status: Acute ICD Code: M25.569 - Pain in unspecified knee; G89.29 - Other chronic pain SNOMED: 63405118 (15) Migraine headache ICD Code: G43.909 - Migraine, unspecified, not intractable, without status migrainosus SNOMED: 12715449 (16) Migraine Status: Acute ICD Code: G43.909 - Migraine, unspecified, not intractable, without status migrainosus SNOMED: 20465176 (17) Hx of cholecystectomy ICD Code: Z90.49 - Acquired absence of other specified parts of digestive tract SNOMED: 14738494, 169694767 (18) Hx of appendectomy ICD Code: Z90.49 - Acquired absence of other specified parts of digestive tract SNOMED: 264268349 (19) H/O ventral hernia repair ICD Code: Z98.890 - Other specified postprocedural states; Z87.19 - Personal history of other diseases of the digestive system SNOMED: 317727781, 169915177, 31692384033258 (20) History of hysterectomy with bilateral oophorectomy ICD Code: Z90.710 - Acquired absence of both cervix and uterus; Z90.722 - Acquired absence of ovaries, bilateral SNOMED: 183113190, 083440038 Vaccines/Immunizations up-to-d: No Travel History EBOLA RISK:Travel to/contact w: No Is pt experiencing any Ebola s: No Review of Systems Constitutional: Fever, Malaise Eyes: Vision change Respiratory: Cough, Hemoptysis, Pleuritic Pain, Sputum Cardiovascular: Chest Pain Gastrointestinal: Vomiting, Abdominal Pain, Constipation Genitourinary: Dysuria Musculoskeletal: neck pain, back pain Neurological: Weakness, Numbness, Incoordination, Change in speech, Confusion, Seizures, Other Allergies: Coded Allergies: Penicillins (Verified Allergy, Severe, unknown, 03/24/16) "CONVULSIONS" aspirin (Verified Allergy, Severe, 03/24/16) "CONVULSIONS" cefamandole nafate (Verified Allergy, Severe, 03/24/16) iodine (Verified Allergy, Severe, Shortness of Breath, 03/24/16) quetiapine (Verified Allergy, Severe, "I GO CRAZY, OUT OF MY HEAD", 03/24/16) Cephalexin Monohydrate (Verified Allergy, Intermediate, Hives, 03/24/16) egg (Verified Allergy, Intermediate, Headache, 03/24/16) latex (Verified Allergy, Intermediate, HIVES, 03/24/16) hydrocodone bitartrate (Verified Allergy, Unknown, 03/24/16) phenazopyridine HCl (Verified Allergy, Unknown, 03/24/16) codeine (Verified Adverse Reaction, Mild, 03/24/16) "I GO CRAZY" Uncoded Allergies: SULFA (Allergy, Unknown, 07/26/13) Scheduled Allopurinol (Allopurinol), 1 TAB PO DAILY, (Reported) Alprazolam (Xanax), 2 MG PO TID, (Reported) Amlodipine Besylate (Norvasc), 5 MG PO DAILY Bupropion Hcl (Bupropion Xl), 300 MG PO DAILY24, (Reported) Carvedilol 25MG (Coreg 25MG), 1 TAB PO BID, (Reported) Cholecalciferol (Vitamin D3) (Vitamin D), 50,000 UNIT PO 3 TIMES A WEEK, (Reported) Duloxetine Hcl (Cymbalta), 60 MG PO DAILY, (Reported) Fenofibrate (Fenofibrate), 160 MG PO DAILY24, (Reported) Furosemide (Lasix), 1 TAB PO DAILY, (Reported) Gabapentin (Neurontin), 2 CAP PO TID, (Reported) Levothyroxine Sodium (Levothyroxine Sodium), 150 MCG PO DAILY, (Reported) Linaclotide (Linzess), 290 MCG PO DAILY, (Reported) Losartan Potassium (Cozaar), 100 MG PO DAILY Metformin Hcl (Metformin Hcl), 1 TAB PO BID, (Reported) Ondansetron (Zofran Odt), 8 MG PO DAILY24, (Reported) Oxcarbazepine (Oxcarbazepine), 300 MG PO DAILY Pantoprazole Sodium (Protonix), 40 MG PO DAILY Potassium Citrate (Potassium Citrate), 10 MEQ PO DAILY24, (Reported) Prednisone (Prednisone), 40 MG PO DAILY24 Rosuvastatin 10MG (Crestor 10MG), 1 TAB PO DAILY, (Reported) Tiotropium [place] (Spiriva), 1 CAP IH DAILY, (Reported) [Flavoxate], 100 MG PO TID Scheduled PRN Albuterol Sulfate (Ventolin Hfa), 90 MCG IH Q6HR PRN for SHORTNESS OF BREATH, (Reported) Tizanidine Hcl (Tizanidine Hcl), 1 TAB PO TID PRN for MUSCLE SPASM, (Reported) Tramadol Hcl (Tramadol Hcl), 50 MG PO PRN PRN for PAIN, (Reported) Discontinued Medications Clonidine Hcl (Clonidine Hcl), 1 TAB PO HS, (Reported) Discontinued Reason: No Longer Taking Dasatinib (Sprycel), 90 MG PO DAILY24, (Reported) Discontinued Reason: No Longer Taking Dasatinib (Sprycel), 90 MG PO DAILY24, (Reported) Discontinued Reason: No Longer Taking Durable Medical Equipment Lancets (Accu-Chek), 1 EACH Q6, (DME) LABS LAB RESULTS Laboratory Tests Test 05/18/20 00:40 05/18/20 01:20 05/18/20 03:05 05/18/20 03:51 Urine Collection Type CCMS Urine Color YELLOW Urine Appearance CLEAR Urine Bilirubin NEGATIVE MG/DL Urine Ketones NEGATIVE Urine Specific [place] 1.015 Urine pH 6.0 Urine Protein NEGATIVE Urine Urobilinogen NEGATIVE Urine Nitrate NEGATIVE Urine Leukocyte Esterase NEGATIVE Urine Blood NEGATIVE Urine Glucose NEGATIVE White Blood Count 5.6 10^3/uL Red Blood Count 2.92 10^6/uL Hemoglobin 8.9 g/dL Hematocrit 27.9 % Mean Corpuscular Volume 95.5 fL Mean Corpuscular Hemoglobin 30.5 pg Mean Corpuscular Hemoglobin Concent 31.9 g/dL Red Cell Distribution Width 15.9 % Platelet Count 203 10^3/uL Mean Platelet Volume 9.3 fL Neutrophils (%) (Auto) 71.3 % Lymphocytes (%) (Auto) 19.8 % Monocytes (%) (Auto) 5.7 % Neutrophils # (Auto) 4.0 10^3/uL Lymphocytes # (Auto) 1.11 10^3/uL1 Monocytes # (Auto) 0.3 10^3/uL Absolute Immature Granulocyte (auto 0 10^3 u/L Absolute Eosinophils (auto) 0.2 10^3/uL Immature Granulocytes % 0.00 % Eosinophils % 2.8 % Basophils % 0.4 % Basophils # 0.0 10^3/uL D-Dimer 1.20 mg/L Sodium Level 142 mmol/L Potassium Level 4.0 mmol/L Chloride Level 105.0 mmol/L Carbon Dioxide Level 30.7 mmol/L Anion Gap 10.3 Blood Urea Nitrogen 13 mg/dL Creatinine 1.40 mg/dL Estimated GFR () 46.7 Est GFR (CKD-EPI)(Non-Afr Tongan) 38.6 BUN/Creatinine Ratio 9.0 Glucose Level 175 mg/dL Lactic Acid Level 1.7 mmol/L Calcium Level 8.6 mg/dL Total Bilirubin 0.2 mg/dL Aspartate Amino Transf (AST/SGOT) 15 U/L Alanine Aminotransferase (ALT/SGPT) 18 U/L Alkaline Phosphatase 38 U/L Troponin I < 0.02 ng/mL < 0.02 ng/mL Total Protein 6.8 g/dL Albumin 3.0 g/dL Globulin 3.8 Albumin/Globulin Ratio 0.789 Influenza Type A Antigen NEGATIVE Influenza B Immunofluorescence NEGATIVE SARS-CoV-2 Antigen (Rapid) NEGATIVE Procalcitonin 0.10 ng/mL Test 05/18/20 06:25 Bedside Glucose 201 Current Medications Medications (Trade) Dose Ordered Sig/Dyllan Route PRN Reason Start Time Stop Time Status Last Admin Dose Admin Prochlorperazine Edisylate (Compazine) 10 mg STAT STAT IV 05/18/20 01:03 05/18/20 04:54 DC 05/18/20 01:30 Diphenhydramine HCl (Benadryl) 25 mg STAT STAT IV 05/18/20 01:03 05/18/20 04:54 DC 05/18/20 01:29 Methylprednisolone Sodium Succinate (Solu-Medrol) 125 mg STAT STAT IV 05/18/20 02:14 05/18/20 02:20 DC 05/18/20 02:52 Methylprednisolone Sodium Succinate (Solu-Medrol) 125 mg STK-MED ONCE .ROUTE 05/18/20 02:29 05/18/20 02:29 DC Enoxaparin Sodium (Lovenox) 100 mg STAT STAT SQ 05/18/20 03:37 05/18/20 04:54 DC 05/18/20 03:58 Exam Vital Signs On examination Vital signs see HPI A 59-year-old obese female is in good spirits, resting comfortably in bed at the moment. General appearance: No apparent distress Neck nontender full range of motion supple Respiratory system: Tenderness over the left lower chest. Crackles heard at the left base no wheezes Cardiovascular system: Heart regular rate and rhythm no murmurs rubs or gallops GI: Normal bowel sounds no hepatosplenomegaly. Tenderness in the bilateral costovertebral angles as well as bilateral lower quadrants of the abdomen anteriorly Extremities no cyanosis clubbing edema, Musculoskeletal examination does not reveal any inflamed joints, normal range of motion no bony deformity Neurologic examination: Cranial nerves II through XII intact. Strength is 5 out of 5 bilateral upper and lower extremity, sensation intact bilaterally , patient is alert and oriented times place and person Skin examination does not reveal any lesions Assessment/Plan Assessment/Plan Patient History: Asthma 32 MOTHER, , Age:61 G8 BROTHER, Age:50 19 CHILD, Age:32 19 CHILD, Age:29 Asthma 32 MOTHER, , Age:61 G8 BROTHER, Age:50 19 CHILD, Age:32 19 CHILD, Age:29 Bone cancer G8 SISTER, Cerebrovascular disorder G8 BROTHER, Age:57 Chronic obstructive pulmonary disease G8 BROTHER, Age:56 G8 SISTER, FH: lung cancer G8 SISTER, FHx: brain cancer G8 SISTER, Hypertension 33 FATHER, , Age:72 G8 BROTHER, Age:57 G8 BROTHER, Age:56 G8 BROTHER, Age:55 G8 BROTHER, Age:50 G8 SISTER, Age:54 19 CHILD, Age:29 G8 SISTER, Hypertension 33 FATHER, , Age:72 G8 BROTHER, Age:57 G8 BROTHER, Age:56 G8 BROTHER, Age:55 G8 BROTHER, Age:50 G8 SISTER, Age:54 19 CHILD, Age:29 G8 SISTER, No Family History of: Alzheimer's disease Cerebrovascular disorder Chronic obstructive pulmonary disease Congestive heart failure Diabetes insipidus Diabetes mellitus Parkinson's disease Plan 59-year-old female with multiple medical problems Migraine attack: Had received Benadryl, Compazine, her headache seems to be much better. I will start the patient on Fioricet. Patient with pulmonary embolism, as received 1 dose of Lovenox in the ER. Concern fact that she has been coughing up brownish to red color phlegm. This evening and I'll could have predisposed to intramuscular thrombosis. We may have to reach out to patient's oncologist for further directions in his management. History of hemoptysis this could be secondary to a pulmonary embolism itself. We'll monitor for further hemoptysis, instructed the patient to collect her sputum and a cup to show it to the morning hospitalist. Have not ordered another dose of Lovenox yet. Patient with febrile illness cough in the setting of being on steroids as well as immunomodulating drugs I will empirically start patient on antibiotics as patient is immunosuppressed. Abdominal discomfort as well as a history of nephrolithiasis she has bilateral flank pain we'll order a noncontrasted CT of the abdomen for the morning. Hypertension stable continue with her home regimen of losartan, Norvasc, Coreg and prazosin Diabetes mellitus , check a hemoglobin A1c in the morning only metformin in light of receiving IV contrast this morning Hypercholesterolemia stable continue with phenotypic related Crestor Diabetes related neuropathy continue Neurontin Depression stable continue with Cymbalta and bupropion Anxiety continue with her regular dose of Xanax History of gout stable continue with allopurinol Chronic hypoxemic respiratory failure continue with supplemental O2 Obstructive sleep apnea asked the family to bring BiPAP from home that she can use in the hospital History of heart failure not sure if it's systolic diastolic check an echocardiogram, continue with Lasix and potassium Hypothyroidism stable continue with levothyroxine Irritable bowel syndrome/constipation continue with her regular dose of Linzess History of CML resume her regular dose of Gleevac do not know the dose, the family will bring the medication over 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 I foresee patient being in the hospital for more than 48 hours so I will be admitting the patient as inpatient. I will be signing out-the care of the patient to the day hospitalist Problem Qualifiers (1) Migraine headache: Migraine type: unspecified Status migrainosus presence: without status migrainosus Intractability: not intractable Qualified Codes: G43.909 - Migraine, unspecified, not intractable, without status migrainosus (2) Migraine: Migraine type: unspecified Status migrainosus presence: without status migrainosus Intractability: not intractable Qualified Codes: G43.909 - Migraine, unspecified, not intractable, without status migrainosus TARI NAVARRETE MD May 18, 2020 06:34
--- NOTE | 2020-05-18 07:15 | NUR ---
RT RT PRESENT. PT RESTING QUIETLY IN BED. AWAKE AND ALERT AND SLEEPY. DENIES COMPLAINTS.
[2020-05-18] MEDS ORDERED: ZANAFLEX PO PRN (08:00)
[2020-05-18] MEDS ORDERED: VENTOLIN HFA IH PRN (08:00)
[2020-05-18] MEDS ORDERED: FIORICET PO PRN (08:00)
[2020-05-18] MEDS ORDERED: XANAX PO PRN (08:30)
--- NOTE | 2020-05-18 08:30 | NUR ---
RESTING RESTING QUIETLY IN BED. AWAKENS EASILY. DENIES COMPLAINTS
[2020-05-18] MEDS ORDERED: LEVAQUIN 100 ML IV SCH (09:00)
[2020-05-18] MEDS ORDERED: SPIRIVA IH SCH (09:00)
[2020-05-18] MEDS ORDERED: CRESTOR PO SCH (09:00)
[2020-05-18] MEDS ORDERED: ZOFRAN ODT SL PRN (09:00)
--- NOTE | 2020-05-18 09:33 | NUR ---
RESTING PT RESTING QUIETLY IN BED. RESP UNLABORED.
--- NOTE | 2020-05-18 10:37 | DIREP ---
PROCEDURE:CT ABDOMEN/PELVIS W/O CONTRAST COMPARISON:[facility], CT, CTA CHEST, 05/18/2020, 02:29 AM. [facility], CT, CT ABD/PELVIS W/O, 03/22/2020, 09:02 PM. INDICATIONS:fever flank pain and h/o nephrolithiasis TECHNIQUE:Axial images were created through the abdomen and pelvis without intravenous contrast material. No oral contrast was administered. Sagittal and coronal reconstructions were performed from source images. FINDINGS: LUNG BASES:The region. Minimal posterior dependent atelectasis of the left lower lobe. Normal heart size. LIVER:Normal. No significant liver lesions are identified. BILIARY:Normal. No visible dilatation or calcification. PANCREAS:Normal. No lesion, fluid collection, ductal dilatation, or atrophy. SPLEEN:Normal. No enlargement or focal lesion. ADRENALS:Normal. No mass or enlargement. URINARY TRACT:Multiple focal areas of cortical thinning and scarring in each kidney. Residual contrast in the bilateral renal collecting systems and ureters due to recent CT angiography of the chest/pulmonary arteries. No dilatation of the ureters. AORTA/VASCULAR:Scattered arterial calcifications. No aneurysm. RETROPERITONEUM:Normal. No mass or adenopathy. BOWEL/MESENTERY:Somewhat limited evaluation due to lack of specific oral contrast or IV contrast administration. No intestinal obstruction, free air, or free fluid. Multiple colonic diverticula without diverticulitis. Was not visualized. No evidence of ascites. ABDOMINAL WALL:Normal. No mass or hernia. PELVIC ORGANS:Hysterectomy. Contrast in urinary bladder. BONES:No acute pathology. Degenerative changes noted in the spine. OTHER:Calcified injection granulomas in each buttock. CONCLUSION: 1. Multiple renal scars in each kidney likely due to previous infection/inflammatory process. Residual contrast in the renal collecting system from recent CT pulmonary angiogram. Because the residual renal collecting system contrast, cannot totally rule out calculi in each kidney, which may be obstructed by the contrast. No evidence of calculi or obstruction in either ureter. 2. Prior cholecystectomy and hysterectomy. Multiple colonic diverticula without diverticulitis. 3. Please see above discussion for details of other findings. Dictated by: Riley Massey M.D. on 05/18/2020 at 10:29 AM
--- NOTE | 2020-05-18 12:31 | NUR ---
STATUS RESTING QUIETLY IN BED EATING LUNCH. SPOUSE @ BEDSIDE. DENIES COMPLAINTS @ THIS TIME
--- NOTE | 2020-05-18 13:02 | NUR ---
STATUS RESTING QUIETLY IN BED. SPOUSE LAYING IN BED WITH PT. REPORTS SL HEADACHE. DR ROTH PRESENT IN ROOM DISCUSSING POC WITH PT. QUESTIONS WERE ANSWERED BY
[2020-05-18 14:09] LABS: ABG PH 7.389 (7.350-7.450); BE(B) 1.3 mmol/L (-2.0-2.0); HCO3act 26.6 mmol/L (22.0-26.0); pO2 80.7 mmHg (80.0-100.0)
[2020-05-18] MEDS ORDERED: NORCO 7.5MG PO PRN (14:30)
--- NOTE | 2020-05-18 14:46 | NUR ---
REPORT REPORT GIVEN TO GIULIANO
[2020-05-18] MEDS: NEURONTIN PO SCH ×3 (15:00→21:20)
[2020-05-18] MEDS: MORPHINE SULFATE IV PRN ×2 (15:03→19:50)
[2020-05-18] MEDS: COREG PO SCH ×2 (15:07→21:00)
[2020-05-18] MEDS: NORVASC PO SCH (15:08)
[2020-05-18] MEDS: LASIX PO SCH (15:08)
[2020-05-18] MEDS: COZAAR PO SCH (15:08)
[2020-05-18] MEDS: PROTONIX PO SCH (15:09)
[2020-05-18] MEDS: TRILEPTAL PO SCH (15:09)
[2020-05-18] MEDS: EFFER-K 10 MEQ TABLET EFF PO SCH (15:09)
--- NOTE | 2020-05-18 15:42 | NUR ---
ASSUMED CARE AT THIS TIME. REPORT RECEIVED FROM PRIMARY NURSE GIULIANO PANCHAL.
[2020-05-18] MEDS: URISPAS PO SCH ×2 (16:00→21:21)
[2020-05-18] MEDS: CYMBALTA PO SCH (16:00)
[2020-05-18] MEDS: WELLBUTRIN XL PO SCH (16:00)
[2020-05-18] MEDS: PREDNISONE PO SCH (16:00)
[2020-05-18] MEDS: SYNTHROID PO SCH (16:00)
[2020-05-18] MEDS: ZYLOPRIM PO SCH (16:00)
[2020-05-18] MEDS: LOFIBRA PO SCH (16:00)
[2020-05-18] MEDS: HUMULIN R SQ SCH ×3 (17:01→20:54)
--- NOTE | 2020-05-18 21:01 | NUR ---
COREG NON ADMIN MORNING DOSE OF COREG WAS GIVEN LATE, MAKING THE SCHEDULE OFF FOR THE EVENING DOSE WILL SKIP EVENING DOSE AND GET BACK ON SCHEDULE IN THE AM
[2020-05-18] MEDS ORDERED: CRESTOR PO ONE ×2 (21:09→21:26)
[2020-05-18] MEDS ORDERED: NS 250ML 250 ML IV ONE (21:09)
[2020-05-18] MEDS: LEVAQUIN 100 ML IV SCH (21:21)
[2020-05-18] MEDS: CRESTOR PO SCH (21:21)
[2020-05-19] MEDS: MORPHINE SULFATE IV PRN ×2 (00:08→07:49)
[2020-05-19] MEDS ORDERED: WATER ONE (01:07)
[2020-05-19 04:15] VITALS: BP 137/61
--- NOTE | 2020-05-19 05:48 | PNH ---
DATE: 05/18/2020 A 59-year-old female admitted agent producer on 05/18/2020 by the hospitalist and I saw her on the morning of 05/18/2020. CHIEF COMPLAINT: Had a migraine headache post-nephrolithiasis with candidemia, had to be transferred to [place] and at the present time, she came in with hemoptysis and left lower ribcage pain. HISTORY OF PRESENT ILLNESS: The patient is a 59-year-old white female who has underlying history of chronic myeloid leukemia on Gleevec, COPD, ERICH on CPAP and hypertension, hypertensive heart disease, chronic diastolic heart failure, CKD class 2, prior history of glomerulonephritis, nephrolithiasis, recurrent pulmonary infection, pulmonary hemorrhage and she was admitted around 4:00 in the morning of 05/18/2020. She came with [] hemoptysis and sputum production and lower ribcage pain, worse on coughing and she was not having any unusual shortness of breath, was not very hypoxic. EKG was showing regular sinus rhythm with right bundle branch block and nonspecific ST-T wave changes. Chest x-ray showed possible left lower lobe infiltrate. CT chest was not very conclusive, but was interpreted on the right lower lobe pulmonary embolism and left pleural effusion [] hemoptysis. I am not really sure whether she had pulmonary emboli. She got 1 dose of Lovenox in the Emergency Room. ALLERGIES: CEPHALEXIN, PENICILLIN, SULFA, ASPIRIN, CEFAMANDOLE, CODEINE, EGGS, HYDROCODONE, IODINE, LATEX. MEDICATIONS: She is on a long list of medications, which include [] albuterol nebulizer on a p.r.n. basis, allopurinol 300 mg once a day, Xanax 2 mg 3 times a day, amlodipine 5 mg once a day, bupropion XL 300 mg once a day, Coreg 25 mg twice a day, Cymbalta 60 mg once a day, fenofibrate 160 mg once a day, Lasix 20 mg once a day, gabapentin 300 mg 2 capsules 3 times a day, Levothroid 200 mcg once a day, losartan 100 mg once a day and ondansetron 8 mg on p.r.n. basis for nausea and vomiting, oxcarbazepine 300 mg once a day, Protonix 40 mg once a day, potassium 10 mEq once a day, prednisone 40 mg once a day, Crestor 10 mg once a day, Spiriva 18 mcg once a day, flavoxate 100 mg 3 times a day for bladder spasms. She is on several other p.r.n. medicines and metformin 500 mg twice a day. PAST MEDICAL HISTORY: CML, nephrolithiasis, recurrent pulmonary infection, ERICH on CPAP, hypertension, hypertensive heart disease and she has had multiple pneumonias in the past. See my past history for further details. SOCIAL HISTORY: Nonsmoker, no ethanol abuse. FAMILY HISTORY: Positive for lung problems and heart disease. PHYSICAL EXAMINATION: GENERAL: When I saw her, she was comfortable. VITAL SIGNS: She is 170 cm and 99 kilograms, BMI 34.5. She has lost some weight. Temperature 98, respirations were 18-20, pulse 81 []. HEENT: Unremarkable. NECK: No JVD, no carotid bruits. LUNGS: Showed poor air entry in the lung bases. She appeared to be significantly pale. Decreased air entry in both lung bases. HEART: Sounds S1, S2 normal. ABDOMEN: Rounded, no organomegaly. EXTREMITIES: Distal pulses poorly felt and minimal dependent edema. NEUROLOGIC: No focal neuro deficit is documented. LABORATORY DATA: CBC showing 8.9 hemoglobin, which is low for her, but still not at a range where she requires a blood transfusion. Her platelets are 203,000 and her chemistries were all acceptable. BUN is 13, creatinine 1.4. TSH was 1.2, 6.3 A1c, which is acceptable. D-dimer was 1.2. Blood gas was not done. Urine was unremarkable. Serology for COVID PCR was negative and her chest x-ray showed left hemidiaphragm was obscured due to infiltrate or pneumonia. She has had these chronic findings, mild cardiomegaly, right lung base, streaky opacities and there was a CTA [] finding concerning of pulmonary emboli in the right lower lobe, this is not definite, left pleural effusion, chronic scarring noted. She had an abdominal-pelvis CT also and multiple renal scars in each kidneys, possibility of calculi, post-cholecystectomy, hysterectomy [] colonic diverticula were noted. IMPRESSION: History of cough, hemoptysis, history of prior pulmonary hemorrhage, has been on longstanding steroid doses, prednisone 40 mg once a day given by monotyper because of pulmonary hemorrhage and I am not very convinced of pulmonary emboli and one could probably give her prophylactic dose, but to subject her to full dose of heparin or Lovenox increases the risk of pulmonary hemorrhage as V/Q scan has been ordered, which will also be difficult to interpret, but at the present time, her blood gas to see if she has got any shunting will be done. Continue present medications, empiric antibiotics and decide therapy after blood gas and a V/Q scan. Laxmichand MD Priyanka DR: EMY/scott JOB# [id number]
[2020-05-19] MEDS: SYNTHROID PO SCH (06:35)
[2020-05-19] MEDS: HUMULIN R SQ SCH ×4 (07:30→20:18)
[2020-05-19 08:15] VITALS: BP 158/86
[2020-05-19] MEDS: LEVAQUIN 100 ML IV SCH (08:43)
[2020-05-19] MEDS: EFFER-K 10 MEQ TABLET EFF PO SCH (08:43)
[2020-05-19] MEDS: CYMBALTA PO SCH (08:43)
[2020-05-19] MEDS: TRILEPTAL PO SCH (08:43)
[2020-05-19] MEDS: WELLBUTRIN XL PO SCH (08:43)
[2020-05-19] MEDS: LOVENOX SQ SCH (08:43)
[2020-05-19] MEDS: COREG PO SCH ×2 (08:44→20:17)
[2020-05-19] MEDS: COZAAR PO SCH (08:45)
[2020-05-19] MEDS: NEURONTIN PO SCH ×3 (08:45→20:17)
[2020-05-19] MEDS: ZYLOPRIM PO SCH (08:46)
[2020-05-19] MEDS: URISPAS PO SCH ×3 (08:46→20:17)
[2020-05-19] MEDS: LASIX PO SCH (08:46)
[2020-05-19] MEDS: PROTONIX PO SCH (08:46)
[2020-05-19] MEDS: NORVASC PO SCH (08:46)
[2020-05-19] MEDS: LOFIBRA PO SCH (08:56)
[2020-05-19] MEDS: PREDNISONE PO SCH (08:56)
[2020-05-19 11:55] VITALS: BP 163/72
[2020-05-19 12:27] LABS: BASOPHIL % 0.4 % (0.0-0.2); EOSINOPHIL # 0.2 10^3/uL (0.0-0.2); EOSINOPHIL % 3.1 % (0.0-5.0); LYMPHOCYTES # 1.37 10^3/uL1 (1.0-4.8); LYMPHOCYTES % 20.3 % (24.0-44.0); MEAN CORP HGB 30.2 pg (26-34); MONOCYTES # 0.6 10^3/uL (0.3-0.8); MONOCYTES % 8.2 % (5.0-12.0); NEUTROPHIL # 4.6 10^3/uL (1.8-7.7); NEUTROPHILS % 67.6 % (41.0-85.0); PLATELET COUNT 264 10^3/uL (150-400)
[2020-05-19 14:04] LABS: CALCIUM 9.3 mg/dL (8.4-10.5)
[2020-05-19 17:15] VITALS: BP 136/59
[2020-05-19] MEDS ORDERED: CRESTOR PO ONE (20:19)
[2020-05-19] MEDS: CRESTOR PO SCH (20:19)
[2020-05-19 21:01] VITALS: BP 148/77
--- NOTE | 2020-05-19 21:44 | PNH ---
DATE: 05/19/2020 SUBJECTIVE: A 59-year-old. The patient is having hemoptysis. OBJECTIVE: VITAL SIGNS: Her temperature is 99.1 and 88 pulse and respirations 19 and 136/59, blood pressure 94, saturation 1-1/2 liters nasal cannula. She appears to be comfortable. NECK: No JVD. LUNGS: Poor air entry bilaterally. HEART: Sounds normal. Intake, output shows positive balance of 400 mL. LABORATORY DATA: Her white count of 6.7. Chemistry is showing a creatinine of 1.44, which is elevated compared the admission creatinine was also 1.4. Blood sugar is acceptable, is slightly elevated 260. She is on steroids and she has got a myelocytic leukemia, but the counts are normal. Platelets are acceptable, poor at 64,000, she gets hemoptysis, probably due to the chemotherapeutic agent and she has had severe pulmonary hemorrhage in the past and clinically, the chance of having pulmonary emboli are very low and CT report was also equivocal, V/Q scan is awaited tomorrow. I have not started her on full dose of anticoagulation taking it is not any acute pulmonary emboli and there is a contraindication to heparin or Lovenox because of the hemoptysis. We will await V/Q scan, IV site access has been lost. PLAN: We will change Levaquin to oral and discharge planning by 05/19/2020. Alex Mathew MD DR: EMY/scott JOB# [id number]
[2020-05-19 23:40] VITALS: BP 146/73
[2020-05-20] MEDS: MORPHINE SULFATE IV PRN ×2 (03:08→09:22)
[2020-05-20 04:47] VITALS: BP 159/81
[2020-05-20] MEDS: HUMULIN R SQ SCH ×2 (07:30→11:30)
[2020-05-20 07:35] VITALS: BP 155/80
[2020-05-20] MEDS: SYNTHROID PO SCH (07:54)
[2020-05-20] MEDS: PREDNISONE PO SCH (08:00)
[2020-05-20] MEDS: NEURONTIN PO SCH (08:58)
[2020-05-20] MEDS: NORVASC PO SCH (08:58)
[2020-05-20] MEDS: EFFER-K 10 MEQ TABLET EFF PO SCH (08:58)
[2020-05-20] MEDS: WELLBUTRIN XL PO SCH (08:58)
[2020-05-20] MEDS: COREG PO SCH (08:59)
[2020-05-20] MEDS ORDERED: LEVAQUIN PO SCH (09:00)
[2020-05-20] MEDS: LASIX PO SCH (09:00)
[2020-05-20] MEDS: COZAAR PO SCH (09:01)
[2020-05-20] MEDS: TRILEPTAL PO SCH (09:02)
[2020-05-20] MEDS: ZYLOPRIM PO SCH (09:02)
[2020-05-20] MEDS: CYMBALTA PO SCH (09:03)
[2020-05-20] MEDS: PROTONIX PO SCH (09:07)
[2020-05-20] MEDS: LOFIBRA PO SCH (09:21)
[2020-05-20] MEDS: URISPAS PO SCH (09:21)
[2020-05-20] MEDS: LOVENOX SQ SCH (09:25)
[2020-05-20] MEDS ORDERED: Levofloxacin PO (10:39)
[2020-05-20 11:25] VITALS: BP 130/74
--- NOTE | 2020-05-20 12:26 | ECHO ---
DATE OF SERVICE: A 59-year-old female with hypertension, hypertensive heart disease, chronic lung disease, myeloid leukemia, congestive heart failure, diastolic dysfunction, systolic dysfunction, chronic renal failure, assess LV systolic function. FINDINGS: Mitral valve shows mild mitral annular calcification, mitral regurgitation, 1.2 meters velocity, mild reversal of E to A ratio. Aorta is normal, 7 mm gradient across the aorta with adequate aortic valve opening of 3.3 square cm. Tricuspid valve shows mild tricuspid regurgitation. Right ventricular systolic pressure of 17 mm, thickening of anterior right ventricular wall, top normal right ventricular size. Right atrium is enlarged in 4-chamber view to 5.01 cm. Left atrium is enlarged to 4.92 cm. Left ventricle is significantly enlarged to 6.44 cm, end diastolic dimension 5.05 cm, end-systolic dimension with mild global hypokinesis, ejection fraction of 42% and increase in end-diastolic volume to 141 mL. IVC is top normal size. Hence, picture consistent with LV dilatation with mild global hypokinesis and left ventricular hypertrophy, septum thicker than the posterior wall with an ejection fraction of 42% and increase in end-diastolic volume and right atrial enlargement and top normal RV size with thickening of the anterior right ventricular wall, suggestive of pressure overload, pulmonary hypertension, mild mitral and tricuspid regurgitation. No thrombus in any other cardiac chambers. Increased end-diastolic volume to 141 mL. Laxmichand MD SUSSY Mathew: EMY/scott JOB# [id number]
--- NOTE | 2020-05-20 12:34 | DIREP ---
PROCEDURE:NM LUNG SCAN PERFUSION/MAS COMPARISON:[facility], CR, XRAY CHEST 2 VWS, 05/18/2020, 01:08 AM. INDICATIONS:Pulmonary Embolism TECHNIQUE:After obtaining the patient's consent, a perfusion scan was obtained using 5.9 mCi Tc-99m MAA intravenous. FINDINGS: VENTILATION:Not performed per COVID-19 protocol. PERFUSION:No significant perfusion defect is identified. CONCLUSION: 1. No significant perfusion defect is identified, indicating low probability for pulmonary embolus. Dictated by: Rashaad Ramires M.D. On 05/20/2020 at 12:31 PM
--- NOTE | 2020-05-20 13:00 | NUR ---
DISCHARGE PATIENT IV CATHETER REMOVED, TIP INTACT. TELEMETRY REMOVED. DISCHARGE INSTRUCTIONS GIVEN INCLUDING NEW AND CONTINUED MEDICATIONS, FOLLOW UP APPOINTMENTS, DIET AND ACTIVITY TOLERATED. PATIENT AND SPOUSE VERBALIZED UNDERSTANDING. PATIENT DENIES FURTHER NEEDS AT THIS TIME. PATIENT ESCORTED OFF UNIT VIA WHEELCHAIR BY POLA LIMON LVN AND SPOUSE. PATIENT ASSISTED INTO CAR WITH SPOUSE.
--- NOTE | 2020-05-20 13:28 | DSH ---
DATE OF DISCHARGE: 05/20/2020 FINAL DIAGNOSES: Hemoptysis, shortness of breath, hypertension, hypertensive heart disease, recurrent pulmonary infections, chronic myeloid leukemia, chronic kidney disease class 2, prior history of glomerulonephritis, recurrent hemoptysis, pulmonary emboli was considered and ruled out by V/Q scan, which was showing low probability of pulmonary emboli. Please refer to my history and physical to the point of my impression. HOSPITAL COURSE: The patient is a 59-year-old female with underlying history of chronic myeloid leukemia, obesity, hypertension, hypertensive heart disease, chronic renal failure, recurrent pulmonary infections, hemoptysis, nephrolithiasis and she has had multiple hospitalizations in the last 1 year, for multiple medical problems and she came in with shortness of breath and CTA was done and they thought she may have a possibility of emboli, although she had no tachycardia, tachypnea and no hypoxemia was noted and she was having hemoptysis, which is not uncommon. She has been on chemotherapeutic agents, which may have aggravated her hemoptysis. At the present time, she had a V/Q scan done, which showed low probability of pulmonary emboli, although CT showed a possibility of right lower lobe embolus and since she has no mismatch defects, we will not put her on any anticoagulation, which are contraindicated in her related to her history of hemoptysis. We left her on Levaquin 500 mg daily and Ventolin inhaler on p.r.n. basis, allopurinol 300 mg once a day, Xanax 2 mg 3 times a day, amlodipine 5 mg once a day, bupropion XL 300 mg once a day, amlodipine 5 mg once a day, Coreg 25 mg twice a day, vitamin D3, 50,000 units 3 times a week and Cymbalta 60 mg once a day, fenofibrate 160 mg once a day, flavoxate 100 mg 3 times a day, Lasix 20 mg once a day, gabapentin 300 mg 2 capsules 3 times a day and Levothroid 200 mcg once a day, Linzess on p.r.n. basis and losartan 100 mg once a day, metformin 500 mg twice a day, Zofran on p.r.n. basis, oxcarbazepine 300 mg daily, Protonix 40 mg once a day, potassium 10 mEq once a day, prednisone 40 mg daily, it will be decided by the electrical test technician to decrease the dose of prednisone, Crestor 10 mg once a day, Spiriva 18 mcg nebulizer by inhalation once a day and tizanidine 4 mg 3 times a day on p.r.n. basis, Ultram 50 mg on p.r.n. basis and she will be seeing her electrical test technician and Dr. Rosado. I do not think there is a need for her to go on anticoagulation at the present time. Lollymichand MD Priyanka DR: EMY/scott JOB# [id number]
[2020-05-20 15:00] VITALS: BP 130/74
[2020-05-20 18:33] VITALS: BP 130/74
== END 2020-05-20 16:30 | disposition home or self-care (01) ==
LOC: ER 00:37 → MS 03:52
PROVIDERS: ADMIT Hospitalist; ATTEND Specialist
DX: G43.909 Migraine, unspecified, not intractable, without status migrainosus (principal); Z20.822 Contact with and (suspected) exposure to COVID-19; I26.99 Other pulmonary embolism without acute cor pulmonale; I13.0 Hypertensive heart and chronic kidney disease with heart failure and stage 1 through stage 4 chronic kidney disease, or unspecified chronic kidney disease; E11.22 Type 2 diabetes mellitus with diabetic chronic kidney disease; I50.32 Chronic diastolic (congestive) heart failure; N18.2 Chronic kidney disease, stage 2 (mild); D63.1 Anemia in chronic kidney disease; E78.00 Pure hypercholesterolemia, unspecified; F41.8 Other specified anxiety disorders; M10.9 Gout, unspecified; J96.11 Chronic respiratory failure with hypoxia; G47.33 Obstructive sleep apnea (adult) (pediatric); E03.9 Hypothyroidism, unspecified; K58.9 Irritable bowel syndrome, unspecified; C92.10 Chronic myeloid leukemia, BCR/ABL-positive, not having achieved remission; G89.29 Other chronic pain; M54.9 Dorsalgia, unspecified; J44.9 Chronic obstructive pulmonary disease, unspecified; R07.89 Other chest pain; R04.2 Hemoptysis; Z87.442 Personal history of urinary calculi; Z88.0 Allergy status to penicillin; Z90.710 Acquired absence of both cervix and uterus; E11.69 Type 2 diabetes mellitus with other specified complication; E66.9 Obesity, unspecified; I45.10 Unspecified right bundle-branch block; M79.7 Fibromyalgia; Z79.84 Long term (current) use of oral hypoglycemic drugs; Z79.890 Hormone replacement therapy; Z79.899 Other long term (current) drug therapy; Z87.448 Personal history of other diseases of urinary system; Z90.49 Acquired absence of other specified parts of digestive tract
CPT/HCPCS: 36415 ×2; 36600; 71046; 71275; 74176; 78580; 80053 ×2; 81003; 82803; 82948 ×3; 83036; 83605; 84145 ×2; 84443; 84484; 85025 ×2; 85379 ×2; 87040; 87086; 87426; 87804; 93005; 93306; 96365; 96366 ×2; 96372 ×3; 96375; 96376 ×3; 99285; A9540; G0378 ×4; J0780; J1200; J1650 ×3; J1815; J1956 ×3; J2270 ×3; J2930; J7050; J7512 ×2; Q9965; J8499

== ENCOUNTER → 2020-06-06 | Outpatient (CLI) | payer MEDICARE ==
[~2020-06-06] MED LIST changes: +Levofloxacin PO
--- NOTE | 2020-06-06 16:45 | DIREP ---
PROCEDURE:US KIDNEYS-BILAT COMPARISON:[facility], [place], RENAL, 10/02/2015, 01:[address] [facility], CT, CT ABD/PELVIS W/O, 05/18/2020, 09:50 AM. INDICATIONS:CALCULUS OF KIDNEY TECHNIQUE:Ultrasound examination was performed of the kidneys and bladder. FINDINGS: RIGHT KIDNEY:10.2 x 6.3 x 5.2 cm. Cortex: 1.0 cm LEFT KIDNEY: 11.3 x 5.3 x 5.0 cm. Cortex: 1.7 cm BLADDER (pre-void):4.8 x 6.1 x 8.3 cm. Volume 169.1 ml BLADDER (post-void): 5.5 x 5.8 x 8.4 cm. Volume 11.7 ml MICTURATED VOLUME: 157.4 ml RIGHT KIDNEY: There is no hydronephrosis or suspicious cortical lesion. LEFT KIDNEY: There is no suspicious cortical lesion or hydronephrosis. BLADDER:Normal. No visible wall thickening, mass, or calculus. Bilateral ureteral jets visualized. OTHER:Negative. CONCLUSION:No abnormality noted. [facility]ated [facility] on 06/06/2020 at 04:32 PM bs
== END | disposition home or self-care (01) ==
LOC: RAD 15:10
PROVIDERS: ATTEND Pediatrics
DX: N20.0 Calculus of kidney (principal)
CPT/HCPCS: 76770

== ENCOUNTER 2020-08-03 13:52 | Emergency (ER) | payer MEDICARE ==
[~2020-08-03 13:52] MED LIST changes: +AMLO-170 PO; +AMPH30TA2 PO; +BUDE0.5A3 IH; +IMAT400T6 PO
[2020-08-03 14:10] VITALS: BP 174/93
[2020-08-03] MEDS ORDERED: MORPHINE SULFATE IV STA ×2 (14:31→16:06)
[2020-08-03] MEDS ORDERED: ZOFRAN IV STA (14:31)
--- NOTE | 2020-08-03 14:35 | ER.PDOC ---
General Chief Complaint: Requesting Medical Care Stated Complaint: PAIN IN KIDNEYS Time seen by MD: 14:33 Source: patient Exam Limitations: no limitations History of Present Illness Timing/Duration: 24 hours Severity/Quality: moderate Radiation: no radiation Associated Symptoms: back pain Exacerbated by: nothing Relieved By: nothing Allergies: Coded Allergies: Penicillins (Verified Allergy, Severe, unknown, 03/24/16) "CONVULSIONS" aspirin (Verified Allergy, Severe, 03/24/16) "CONVULSIONS" cefamandole nafate (Verified Allergy, Severe, 03/24/16) iodine (Verified Allergy, Severe, Shortness of Breath, 03/24/16) quetiapine (Verified Allergy, Severe, "I GO CRAZY, OUT OF MY HEAD", 03/24/16) Cephalexin Monohydrate (Verified Allergy, Intermediate, Hives, 03/24/16) egg (Verified Allergy, Intermediate, Headache, 03/24/16) latex (Verified Allergy, Intermediate, HIVES, 03/24/16) hydrocodone bitartrate (Verified Allergy, Unknown, 03/24/16) phenazopyridine HCl (Verified Allergy, Unknown, 03/24/16) codeine (Verified Adverse Reaction, Mild, 03/24/16) "I GO CRAZY" Uncoded Allergies: SULFA (Allergy, Unknown, 07/26/13) Home Meds Active Scripts Budesonide (PULMICORT) 0.5 Mg/2 Ml Ampul.neb, 0.5 MG IH RTBID for 30 Days, AMPULE Prov:JR VILLA MD 07/27/20 [Levofloxacin] 750 TABLET No Conflict Check, 500 MG PO DAILY for 5 Days Prov:JR VILLA MD 07/27/20 Prednisone (PREDNISONE) 20 Mg Tablet, 30 MG PO DAILY24 for 3 Days, TAB Prov:JR VILLA MD 07/27/20 Gabapentin (NEURONTIN) 300 Mg Capsule, 1 CAP PO TID for 30 Days, CAPSULE Prov:JR VILLA MD 07/27/20 Amlodipine Besylate (NORVASC) 5 Mg Tablet, 10 MG PO DAILY for 30 Days, TABLET Prov:ADAIR ROTH MD 07/25/20 Amlodipine Besylate (NORVASC) 5 Mg Tablet, 10 MG PO DAILY for 30 Days, TABLET Prov:ADAIR ROTH MD 07/25/20 [Flavoxate] No Conflict Check, 100 MG PO TID for BLADDER SPASM, #30 Prov:KRISTINE CONNER MD 03/20/20 Oxcarbazepine (OXCARBAZEPINE) 150 Mg Tablet, 300 MG PO DAILY for 30 Days, TAB Prov:ADAIR ROTH MD 03/10/19 Losartan Potassium (COZAAR) 50 Mg Tablet, 100 MG PO DAILY for 30 Days, #30 TAB Prov:ADAIR ROTH MD 03/10/19 Pantoprazole Sodium (PROTONIX) 40 Mg Tablet.dr, 40 MG PO DAILY for 30 Days, #30 Prov:ADAIR ROTH MD 02/02/19 Lancets (ACCU-CHEK) 1 Each Each, 1 EACH MC Q6 for 30 Days, #30 EACH Prov:ADAIR ROTH MD 09/09/18 Reported Medications Imatinib Mesylate (GLEEVEC) 400 Mg Tablet, 400 MG PO DAILY24, #30 TAB 07/26/20 Amphet Asp/Amphet/D-Amphet (ADDERALL 30 MG TABLET) 30 Mg Tablet, 1 TAB PO DAILY24 MDD 2 Tablet(s) for 30 Days, #60 TAB 0 Refills 07/25/20 Tramadol Hcl (TRAMADOL HCL) 50 Mg Tablet, 2 TAB PO QID for PAIN, #90 TAB 07/25/20 Amlodipine Besylate (AMLODIPINE BESYLATE) 10 Mg Tablet, 1 TAB PO DAILY, #30 TAB 5 Refills 07/25/20 Furosemide (LASIX) 20 Mg Tablet, 20 MG PO TID, TAB 07/25/20 Carvedilol 25MG (COREG 25MG) 25 Mg Tablet, 1 TAB PO BID, #60 TAB 5 Refills 01/31/19 Rosuvastatin 10MG (CRESTOR 10MG) 10 Mg Tablet, 1 TAB PO DAILY, #30 TAB 5 Refills 01/30/19 Fenofibrate (FENOFIBRATE) 160 Mg Tablet, 160 MG PO DAILY24, TABLET 09/07/18 Potassium Citrate (POTASSIUM CITRATE) 10 Meq Tablet.er, 10 MEQ PO DAILY24 10/04/17 Bupropion Hcl (BUPROPION XL) 300 Mg Tab.er.24h, 300 MG PO DAILY24 10/04/17 Ondansetron (ZOFRAN ODT) 8 Mg Tab.rapdis, 8 MG PO DAILY24 for N/V, TAB 10/04/17 Albuterol Sulfate (VENTOLIN HFA) 18 Gm Hfa.aer.ad, 90 MCG IH Q6HR PRN for SHORTNESS OF BREATH 10/04/17 Allopurinol (ALLOPURINOL) 300 Mg Tablet, 1 TAB PO DAILY 10/04/17 Duloxetine Hcl (CYMBALTA) 60 Mg Capsule.dr, 60 MG PO DAILY 03/24/16 Tiotropium [place] (SPIRIVA) 18 Mcg Cap.w.dev, 1 CAP IH DAILY 12/13/15 Tizanidine Hcl (TIZANIDINE HCL) 4 Mg Tablet, 1 TAB PO TID PRN for MUSCLE SPASM 11/22/14 Alprazolam (XANAX) 2 Mg Tablet, 2 MG PO TID, TABLET 01/15/14 Linaclotide (LINZESS) 290 Mcg Capsule, 290 MCG PO DAILY, CAPSULE 01/15/14 Cholecalciferol (Vitamin D3) (VITAMIN D) 10,000 Unit Capsule, 32990 UNIT PO 3 TIMES A WEEK, CAPSULE 01/15/14 Levothyroxine Sodium (LEVOTHYROXINE SODIUM) 200 Mcg Tablet, 150 MCG PO DAILY, TABLET 08/11/13 Discontinued Reported Medications Metformin Hcl (METFORMIN HCL) 500 Mg Tablet, 1 TAB PO BID, #60 TAB 3 Refills 01/30/19 Furosemide (LASIX) 20 Mg Tablet, 1 TAB PO DAILY 11/22/14 Vital Signs First Vital Signs Date Time Temp Pulse Resp B/P (MAP) Pulse Ox O2 Delivery O2 Flow Rate FiO2 07/27/20 08:42 80 08/03/20 14:10 97.8 18 08/03/20 14:10 174/93 (120) 93 Nasal Canula 2.00 Last Vital Signs Date Time Temp Pulse Resp B/P (MAP) Pulse Ox O2 Delivery O2 Flow Rate FiO2 08/03/20 14:10 97.8 97 18 93 08/03/20 14:10 174/93 (120) Nasal Canula 2.00 Past Medical History Medical History: cancer, COPD, fibromyalgia, high cholesterol, hypertension, thyroid disease Surgical History: appendectomy, cholecystectomy, hysterectomy, tonsillectomy Social History Drug Use: none Reviewed Nursing Reviewed: Vital Signs, Abn. Noted All Other Systems: Reviewed and Negative Physical Exam General Appearance: No Apparent Distress, WD/WN HEENT: PERRL/EOMI, Normal ENT Inspection, TMs Normal, Pharynx Normal Neck: Non-Tender, Full Range of Motion, Supple, Normal Inspection Respiratory: chest non-tender, lungs clear, normal breath sounds, no respiratory distress, no accessory muscle use Cardiovascular: Normal Peripheral Pulses, Regular Rate, Rhythm, No Edema, No Gallop, No JVD, No Murmur Gastrointestinal: Tenderness Back: Normal Inspection, No CVA Tenderness, No Vertebral Tenderness Extremities: Normal Range of Motion, Non-Tender, Normal Inspection, No Pedal Edema, No Calf Tenderness, Normal Capillary Refill, Pelvis Stable Neurologic/Psychiatric: mold maker plaster II-XII NML as Tested, No Motor/Sensory Deficits, Alert, Normal Mood/Affect, Oriented x 3 Skin: Normal Color, Warm/Dry Lymphatic: No Adenopathy Results/Orders Results/Orders Orders - LAYLA BRAMBILA MD Cbc With Auto Diff (08/03/20 14:29) Comprehensive Metabolic Panel (08/03/20 14:29) Amylase (08/03/20 14:29) Lipase (08/03/20 14:29) Helicobacter Pylori (08/03/20 14:29) PT (08/03/20 14:29) Partial Thromboplastin Time. (08/03/20 14:29) Urinalysis (08/03/20 14:29) Saline Lock (08/03/20 14:29) Morphine Sulfate (Morphine Sulfate) (08/03/20 14:31) Ondansetron Hcl/Pf (Zofran) (08/03/20 14:31) 0.9 % Sodium Chloride (Ns 1000ml) (08/03/20 15:00) Morphine Sulfate (Morphine Sulfate) (08/03/20 14:45) Ct Abd/Pelvis Wo Iv Contrast (08/03/20 15:05) Vital Signs Date Time Temp Pulse Resp B/P (MAP) Pulse Ox O2 Delivery O2 Flow Rate FiO2 08/03/20 14:10 97.8 97 18 93 08/03/20 14:10 97.8 97 18 174/93 (120) 93 Nasal Canula 2.00 08/03/20 14:10 97.8 97 18 07/27/20 08:42 80 Administered Medications Medications (Trade) Dose Ordered Sig/Dyllan Route PRN Reason Start Time Stop Time Status Last Admin Dose Admin Morphine Sulfate (Morphine Sulfate) 4 mg STAT STAT IV 08/03/20 14:31 08/03/20 14:32 UNV 08/03/20 14:51 4 MG Ondansetron HCl (Zofran) 4 mg STAT STAT IV 08/03/20 14:31 08/03/20 14:32 UNV 08/03/20 14:50 4 MG Sodium Chloride 1,000 ml @ 0 mls/hr Q0M ONCE IV 08/03/20 15:00 08/03/20 15:01 UNV 08/03/20 14:50 1,000 MLS/HR Laboratory Tests Test 08/03/20 14:25 White Blood Count 6.6 10^3/uL (4.5-11.0) Red Blood Count 3.65 10^6/uL (4.00-5.20) L Hemoglobin 10.9 g/dL (12.0-15.0) L Hematocrit 36.1 % (36.0-46.0) Mean Corpuscular Volume 98.9 fL (78-100) Mean Corpuscular Hemoglobin 29.9 pg (26-34) Mean Corpuscular Hemoglobin Concent 30.2 g/dL (33-36.5) L Red Cell Distribution Width 13.6 % (11.5-14.5) Platelet Count 214 10^3/uL (150-400) Mean Platelet Volume 9.3 fL (7.8-11.0) Neutrophils (%) (Auto) 48.5 % (41.0-85.0) Lymphocytes (%) (Auto) 36.9 % (24.0-44.0) Monocytes (%) (Auto) 10.8 % (5.0-12.0) Neutrophils # (Auto) 3.2 10^3/uL (1.8-7.7) Lymphocytes # (Auto) 2.45 10^3/uL1 (1.0-4.8) Monocytes # (Auto) 0.7 10^3/uL (0.3-0.8) Absolute Immature Granulocyte (auto 0.03 10^3 u/L (0-2) Absolute Eosinophils (auto) 0.2 10^3/uL (0.0-0.2) Immature Granulocytes % 0.50 % (0.00-0.50) Eosinophils % 3.0 % (0.0-5.0) Basophils % 0.3 % (0.0-0.2) H Basophils # 0.0 10^3/uL (0.0-0.1) Prothrombin Time 11.4 SEC (9.6-12.0) Prothrombin Time INR (Non-Therap) 1.1 Activated Partial Thromboplast Time 21.4 SEC (24.67-30.72) Urine Collection Type CCMS Urine Color YELLOW Urine Appearance CLEAR Urine Bilirubin NEGATIVE (NEGATIVE) Urine Ketones NEGATIVE (NEGATIVE) Urine Specific [place] 1.025 (1.005-1.030) Urine pH 5.0 (4.5-8.0) Urine Protein NEGATIVE (NEGATIVE) Urine Urobilinogen 0.2 E.U./dL (0.2) Urine Nitrate NEGATIVE (NEGATIVE) Urine Leukocyte Esterase NEGATIVE (NEGATIVE) Urine Glucose (Auto)(UA) NEGATIVE (NEGATIVE) Urine Blood NEGATIVE (NEGATIVE) Sodium Level 143 mmol/L (132-145) Potassium Level 3.7 mmol/L (3.6-5.2) Chloride Level 102.0 mmol/L (96-109) Carbon Dioxide Level 32.0 mmol/L (20.0-32) Anion Gap 12.7 Blood Urea Nitrogen 24 mg/dL (7-18) H Creatinine 1.80 mg/dL (0.59-1.40) H Estimated GFR () 35.0 (>/=60) Est GFR (CKD-EPI)(Non-Afr [place]an) 28.9 (>/=60) BUN/Creatinine Ratio 13.0 Glucose Level 134 mg/dL (70-110) H Calcium Level 9.8 mg/dL (8.4-10.5) Total Bilirubin 0.2 mg/dL (0.2-1.0) Aspartate Amino Transferase (AST) 10 U/L (0-35) Alanine Aminotransferase (ALT) 17 U/L (12-78) Alkaline Phosphatase 44 U/L (50-136) L Total Protein 7.3 g/dL (6.4-8.2) Albumin 4.0 g/dL (3.4-5.0) Globulin 3.3 Albumin/Globulin Ratio 1.212 Amylase Level 47 U/L (25-115) Lipase 174 U/L (114-286) Helicobacter pylori Screen POSITIVE (NEGATIVE) EKG/XRAY/CT/US EKG: NSR, no ST T wave changes ER DEPART Departure Time of Disposition: 16:11 Disposition: 01 HOME / SELF CARE / HOMELESS Impression: Primary Impression: Degenerative disc disease, lumbar Condition: Improved Referrals: FERNANDEZ GIRON MD (PCP) PRIMARY CARE PROVIDER Duration or Time Spent with Pa: Ever[place] LAYLA BRAMBILA MD Aug 03, 2020 14:34
[2020-08-03 14:40] LABS: BASOPHIL % 0.3 % (0.0-0.2); EOSINOPHIL # 0.2 10^3/uL (0.0-0.2); LYMPHOCYTES # 2.45 10^3/uL1 (1.0-4.8); LYMPHOCYTES % 36.9 % (24.0-44.0); MEAN CORP HGB 29.9 pg (26-34); MONOCYTES # 0.7 10^3/uL (0.3-0.8); MONOCYTES % 10.8 % (5.0-12.0); NEUTROPHIL # 3.2 10^3/uL (1.8-7.7); NEUTROPHILS % 48.5 % (41.0-85.0); RED CELL DISTRIBUTION WIDTH 13.6 % (11.5-14.5)
[2020-08-03 14:44] LABS: BILIRUBIN,URINE NEGATIVE (NEGATIVE); UA COLOR YELLOW
[2020-08-03 14:45] LABS: UROBILINOGEN,URINE 0.2 E.U./dL (0.2)
[2020-08-03] MEDS ORDERED: MORPHINE SULFATE ONE ×2 (14:45→16:06)
[2020-08-03] MEDS ORDERED: NS 1000ML 1,000 ML ONE (14:45)
[2020-08-03] MEDS ORDERED: ZOFRAN ONE (14:45)
[2020-08-03] MEDS ORDERED: NS 1000ML 1,000 ML IV ONE (15:00)
[2020-08-03 15:02] LABS: CALCIUM 9.8 mg/dL (8.4-10.5)
--- NOTE | 2020-08-03 15:43 | DIREP ---
PROCEDURE:CT ABDOMEN/PELVIS W/O CONTRAST COMPARISON:[facility], CT, CT ABD/PELVIS W/O, 03/22/2020, 09:02 PM. [facility], CT, CT ABD/PELVIS W/O, 05/18/2020, 09:50 AM. INDICATIONS:ABD PAIN TECHNIQUE:Axial images were created through the abdomen and pelvis without intravenous contrast material. No oral contrast was administered. Sagittal and coronal reconstructions were performed from source images. FINDINGS: LUNG BASES:Normal. No visible pulmonary or pleural disease. LIVER:The liver is enlarged measuring approximately 24 cm in length. No focal hepatic lesion is seen. BILIARY:Postcholecystectomy changes are seen. PANCREAS:Normal. No lesion, fluid collection, ductal dilatation, or atrophy. SPLEEN:Normal. No enlargement or focal lesion. ADRENALS:Normal. No mass or enlargement. URINARY TRACT:Multiple bilateral renal calculi are seen largest in the right kidney measuring 6 mm. No ureteral calculus or hydronephrosis is demonstrated. Cortical scarring is again seen of both kidneys. AORTA/VASCULAR:Atherosclerotic vascular calcification is seen of the abdominal aorta which is normal in caliber. RETROPERITONEUM:Normal. No mass or adenopathy. BOWEL/MESENTERY:Multiple diverticula are seen of the sigmoid colon. No dilated loops of large or small bowel or inflammatory changes are seen. The appendix is not visualized. ABDOMINAL WALL:Normal. No mass or hernia. PELVIC ORGANS:The uterus is absent. BONES:Normal for age. No bony lesion or acute fracture. OTHER:Negative. CONCLUSION: 1. Bilateral nephrolithiasis. No ureteral calculus or hydronephrosis is demonstrated. Bilateral cortical scarring is again noted. 2. Sigmoid diverticulosis without CT findings of diverticulitis. No acute abnormalities are seen in the abdomen and pelvis. 3. Hepatomegaly is noted. Dictated by: Ced Wyman M.D. On 08/03/2020 at 03:33 PM
[2020-08-03 15:55] VITALS: BP 131/69
--- NOTE | 2020-08-03 16:15 | NUR ---
iv 20g iv removed from r ac, catheter intact.
== END 2020-08-03 16:15 | disposition home or self-care (01) ==
LOC: ER 13:52
DX: M51.36 Other intervertebral disc degeneration, lumbar region (principal); E07.9 Disorder of thyroid, unspecified; E78.00 Pure hypercholesterolemia, unspecified; I10 Essential (primary) hypertension; J44.9 Chronic obstructive pulmonary disease, unspecified; R79.1 Abnormal coagulation profile; M79.7 Fibromyalgia; Z79.51 Long term (current) use of inhaled steroids; Z79.52 Long term (current) use of systemic steroids; Z79.84 Long term (current) use of oral hypoglycemic drugs; Z79.899 Other long term (current) drug therapy; Z88.0 Allergy status to penicillin; Z88.2 Allergy status to sulfonamides; Z88.5 Allergy status to narcotic agent; Z88.6 Allergy status to analgesic agent; Z88.8 Allergy status to other drugs, medicaments and biological substances; Z90.49 Acquired absence of other specified parts of digestive tract; Z90.710 Acquired absence of both cervix and uterus
CPT/HCPCS: 36415; 74176; 80053; 81003; 82150; 83690; 85025; 85610; 85730; 86677; 96361; 96374; 96375; 96376; 99284; J2270 ×2; J2405; J7030; 81001; 96360